=== PATIENT | male | born 1950 | race Caucasian/White ===

== ENCOUNTER → 2017-08-09 09:01 | Outpatient (POV) | payer MEDICARE, SELFPAY | PROVIDERS: PCP Internal Medicine Adolescent Medicine; Visit Provider Podiatrist | DX: Z00.00 Encounter for general adult medical examination without abnormal findings (principal) ==

== ENCOUNTER 2017-08-29 18:24 | Emergency (ER) | payer MEDICARE, SELFPAY ==
[2017-08-29 18:37] VITALS: BP 149/83; PULSE 74; RESP 16; TEMP 36.9; O2SAT 96; BMI 27.1
--- NOTE | 2017-08-29 18:53 | HMH.EDUPEXT ---
ED Disposition Clinical Impression: Diabetes Avulsion of skin of finger without complication Qualifiers: Encounter type: initial encounter Qualified Code(s): S61.209A - Unspecified open wound of unspecified finger without damage to nail, initial encounter CAD (coronary artery disease) Qualifiers: Coronary Disease-Associated Artery/Lesion type: unspecified vessel or lesion type Disposition: Home, Self-Care Condition on Discharge: Good Instructions: DI for Laceration Repair Additional Instructions: 1- rest. 2- ice 3- elevate. 4- kep it dry and clean. 5- take abx. 6- follow up with Dr Hollis on Saturday for a dressing change. Prescriptions: Sulfamethoxazole/Trimethoprim [Bactrim DS tablet] 1 each PO BID #14 tab Referrals: Abel Basilio MD [Primary Care Provider] - - Critical Care Critical Care Time: No Attestation: On 08/29/17, the high probability of a clinically significant, sudden or life threatening deterioration of the following system(s) required my full and direct attention, intervention and personal management. The time I documented below is in addition to time spent performing reported procedures but includes the following listed in this critical care notation. Medical Decision Making - Medical Records Medical records reviewed: Yes: I reviewed the patient's medical records. Vital Signs: 08/29/17 18:37 Temperature 98.4 F Temperature Source Oral Pulse Rate [Right] 74 Respiratory Rate 16 Blood Pressure [Right Arm] 149/83 Blood Pressure Mean [Right Arm] 105 Blood Pressure Source [Right Arm] Automatic Cuff Blood Pressure Position [Right Arm] Supine 02 Sat by Pulse Oximetry 96 Oxygen Delivery Method Room Air Orders (Tests/Meds): ED MEDICATIONS Generic Name Dose Route Start Last Admin Trade Name Freq PRN Reason Stop Dose Admin Tetanus/Reduced Diphtheria/Acell Pertussis 0.5 ml 08/29/17 18:52 Adacel Tdap 0.5ml Syringe IM 08/29/17 18:53 .ONCE ONE - [place] Inquiry Pt receiving controlled substance: No [place] was queried for this patient: No Medical Decision Making Narrative: The patient had good hemostasis there is no active bleeding. I discussed with the patient treatment plan. Rest elevation antibiotics tetanus vaccine. Hold aspirin. Upper Extremity HPI - General Chief Complaint: Wound/Laceration Stated Complaint: ao [id number] lac left thumb Mode of Arrival: Ambulatory Limitations: No Limitations Description of Symptoms (Recalled from ER Triage Doc. by RN): laceration to left tip of the thumb from a table saw blade. - History of Present Illness HPI narrative: 67 years old who suffered a left thumb injury while using a table chainsaw, there is loss of superficial skin there is no loss of movement power or sensation. Bleeding stopped spontaneously. complaint: injury to: left, finger Onset (ago): minute(s) Other Extremity Injury: Left: fingers (Thumb) Handedness: left Place: home Severity: mild Relieving factors: none Exacerbating factors: none Context: other (Using a chainsaw. ) Associated symptoms: denies other symptoms - Related Data Home Medications Medication Instructions Recorded Confirmed aspirin 81 mg chewable tablet 81 mg PO ONCE 07/23/17 bisoprolol fumarate 5 mg tablet 5 mg PO QDAY 07/23/17 chlorthalidone 50 mg tablet 25 mg PO QDAY 07/23/17 glipizide 5 mg tablet 5 mg PO QDAY 07/23/17 hydralazine 50 mg tablet 50 mg PO BID 07/23/17 losartan 100 mg tablet 100 mg PO QDAY 07/23/17 metformin 1,000 mg tablet 500 mg PO BID 07/23/17 multivit with min-folic tab PO 07/23/17 acid-lutein 400 mcg-250 mcg chewable tablet omeprazole 20 mg capsule,delayed 20 mg PO ONCE 07/23/17 release saxagliptin 5 mg tablet 5 mg PO QDAY 07/23/17 tamsulosin 0.4 mg capsule 0.4 mg PO QDAY 07/23/17 vitamin E (dl, acetate) 400 unit 400 unit PO QDAY 07/23/17 capsule Previous Rx's Medication Instructions Recorded S
--- NOTE | 2017-08-29 18:57 | ED_ITS ---
ED Disposition Clinical Impression: Diabetes Avulsion of skin of finger without complication Qualifiers: Encounter type: initial encounter Qualified Code(s): S61.209A - Unspecified open wound of unspecified finger without damage to nail, initial encounter CAD (coronary artery disease) Qualifiers: Coronary Disease-Associated Artery/Lesion type: unspecified vessel or lesion type Disposition: Home, Self-Care Condition on Discharge: Good Instructions: DI for Laceration Repair Additional Instructions: 1- rest. 2- ice 3- elevate. 4- kep it dry and clean. 5- take abx. 6- follow up with Dr Hollis on Saturday for a dressing change. Prescriptions: Sulfamethoxazole/Trimethoprim [Bactrim DS tablet] 1 each PO BID #14 tab Referrals: Abel Basilio MD [Primary Care Provider] - - Critical Care Critical Care Time: No Attestation: On 08/29/17, the high probability of a clinically significant, sudden or life threatening deterioration of the following system(s) required my full and direct attention, intervention and personal management. The time I documented below is in addition to time spent performing reported procedures but includes the following listed in this critical care notation. Medical Decision Making - Medical Records Medical records reviewed: Yes: I reviewed the patient's medical records. Vital Signs: 08/29/17 18:37 Temperature 98.4 F Temperature Source Oral Pulse Rate [Right] 74 Respiratory Rate 16 Blood Pressure [Right Arm] 149/83 Blood Pressure Mean [Right Arm] 105 Blood Pressure Source [Right Arm] Automatic Cuff Blood Pressure Position [Right Arm] Supine 02 Sat by Pulse Oximetry 96 Oxygen Delivery Method Room Air Orders (Tests/Meds): ED MEDICATIONS Generic Name Dose Route Start Last Admin Trade Name Freq PRN Reason Stop Dose Admin Tetanus/Reduced Diphtheria/Acell Pertussis 0.5 ml 08/29/17 18:52 Adacel Tdap 0.5ml Syringe IM 08/29/17 18:53 .ONCE ONE - [place] Inquiry Pt receiving controlled substance: No [place] was queried for this patient: No Medical Decision Making Narrative: The patient had good hemostasis there is no active bleeding. I discussed with the patient treatment plan. Rest elevation antibiotics tetanus vaccine. Hold aspirin. Upper Extremity HPI - General Chief Complaint: Wound/Laceration Stated Complaint: ao [id number] lac left thumb Mode of Arrival: Ambulatory Limitations: No Limitations Description of Symptoms (Recalled from ER Triage Doc. by RN): laceration to left tip of the thumb from a table saw blade. - History of Present Illness HPI narrative: 67 years old who suffered a left thumb injury while using a table chainsaw, there is loss of superficial skin there is no loss of movement power or sensation. Bleeding stopped spontaneously. complaint: injury to: left, finger Onset (ago): minute(s) Other Extremity Injury: Left: fingers (Thumb) Handedness: left Place: home Severity: mild Relieving factors: none Exacerbating factors: none Context: other (Using a chainsaw. ) Associated symptoms: denies other symptoms - Related Data Home Medications Medication Instructions Recorded Confirmed aspirin 81 mg chewable tablet 81 mg PO ONCE 07/23/17 bisoprolol fumarate 5 mg tablet 5 mg PO QDAY
[2017-08-29 19:03] VITALS: BP 128/75; PULSE 82; RESP 18; TEMP 36.8
== END 2017-08-29 19:02 | disposition home or self-care (01) ==
PROVIDERS: Emergency Provider Emergency Medicine; PCP Internal Medicine Adolescent Medicine
DX: S61.209A Unspecified open wound of unspecified finger without damage to nail, initial encounter (principal); I25.10 Atherosclerotic heart disease of native coronary artery without angina pectoris; E11.9 Type 2 diabetes mellitus without complications; W31.2XXA Contact with powered woodworking and forming machines, initial encounter; Z79.82 Long term (current) use of aspirin; Z79.899 Other long term (current) drug therapy; Z88.0 Allergy status to penicillin
CPT/HCPCS: 90471; 90715; 99281

== ENCOUNTER → 2017-09-20 13:48 | Outpatient (POV) | payer MEDICARE, SELFPAY | PROVIDERS: Visit Provider Podiatrist | DX: Z00.00 Encounter for general adult medical examination without abnormal findings (principal) ==

== ENCOUNTER → 2018-09-11 08:45 | Outpatient (CLI) | payer MEDICARE, SELFPAY ==
[2018-09-11 09:50] LABS: Alanine Aminotransferase 16 U/L (12-78); Albumin Level 3.6 gm/dL (3.4-5.0); Albumin/Globulin Ratio 1.1 (1.1-1.8); Alkaline Phosphatase 85 U/L (46-116); Anion Gap 14.7 mEq/L (5-15); Aspartate Amino Transferase 12 U/L (15-37); Bilirubin,Total 0.5 mg/dL (0.2-1.0); Blood Urea Nitrogen 23 mg/dL (7-18); Calcium 10.1 mg/dL (8.5-10.1); Carbon Dioxide 29 mmol/L (21.0-32.0); Chloride 101 mmol/L (98-107); Chol/HDL Ratio 4.1 (1-3.5); Cholesterol 153 mg/dL (140-200); Creatinine,Serum 1.48 mg/dL (0.70-1.30); Estimated Glomerular Filt Rate 47 ml/min (>60); GFR (African American) 57 ML/MIN (>60); Globulin 3.2 gm/dl (1.3-3.2); Glucose 154 mg/dL (74-106); HDL Cholesterol 37 mg/dL (27-67); LDL Cholesterol 84 mg/dL (0-130); Potassium 3.7 mmoL/L (3.5-5.1); Sodium 141 mmol/L (136-145); Total Protein,Serum 6.8 gm/dL (6.4-8.2); Triglycerides 159 mg/dL (30-200); VLDL Cholesterol 32 mg/dL (0-40)
[2018-09-11 10:01] LABS: Hemoglobin A1C 7.1 % (0.0-7.0)
[2018-09-12 12:38] LABS: Testosterone,Total 624 ng/dL (264-916)
== END ==
PROVIDERS: Visit Provider Internal Medicine Adolescent Medicine
DX: D12.6 Benign neoplasm of colon, unspecified (principal); E11.9 Type 2 diabetes mellitus without complications; I10 Essential (primary) hypertension; R53.83 Other fatigue
CPT/HCPCS: 36415; 80053; 80061; 83036; 84403

== ENCOUNTER 2019-04-08 11:00 | Outpatient (RCR) | payer OTHER, MEDICARE, SELFPAY | END 2019-04-08 11:05 | disposition home or self-care (01) | LOC: PT 11:00 | DX: M54.5 Low back pain (principal) | CPT/HCPCS: 97010; 97014; 97110; 97163; 97164; G0283 ==

== ENCOUNTER 2019-08-11 13:12 | Observation (INO) ==
[2019-08-11 13:39] LABS: Basophils % 0.3 % (0.1-2.0); Eosinophils # 0.2 K/mm3 (0.0-0.4); Eosinophils % 1.5 % (0.1-12.0); Hematocrit 32.8 % (42.0-52.0); Hemoglobin 10.5 g/dL (14.1-18.0); Lymphocytes # 0.8 K/mm3 (0.7-4.5); Lymphocytes % 7.1 % (10-50); Mean Corpuscular Volume 89.8 fl (80-94); Mean Platelet Volume 8.3 fl (7.4-10.4); Monocytes # 0.5 K/mm3 (0.1-1.0); Monocytes % 4.8 % (1.7-9.3); Neutrophils # 9.5 K/mm3 (1.8-7.8); Neutrophils % 86.3 % (37.0-80.0); Platelet Count 282 K/mm3 (142-424); Red Blood Count 3.65 M/mm3 (4.60-6.20)
[2019-08-11 13:49] LABS: Anion Gap 16.7 mEq/L (5-15); Calcium 9.5 mg/dL (8.5-10.1)
--- NOTE | 2019-08-11 13:49 | Emergency Department Note ---
ED Disposition Clinical Impression: Non-ST elevated myocardial infarction Disposition: Admitted as Observation Condition on Discharge: Serious - Critical Care Critical Care Time: Yes Attestation: On 08/11/19, the high probability of a clinically significant, sudden or life threatening deterioration of the following system(s) required my full and direct attention, intervention and personal management. The time I documented below is in addition to time spent performing reported procedures but includes the following listed in this critical care notation. Vital system(s) involved:: Circulatory Failure My critical care processes included: Assessment & monitoring of V/S, Initial and Re-exams, Data Review/Interpretation, Coordinating Care, Medication Orders and management, Documentation Medical Decision Making - [place] Inquiry Pt receiving controlled substance: No Vital Signs: 08/11/19 13:12 08/11/19 13:42 08/11/19 14:00 Temperature 97.5 F L Temperature Source Oral Pulse Rate [Left Radial] 70 70 70 Respiratory Rate 18 20 Blood Pressure [Right Arm] 149/82 H 160/87 H 155/84 H Blood Pressure Mean [Right Arm] 104 111 107 Blood Pressure Source [Right Arm] Automatic Cuff Blood Pressure Position [Right Arm] Sitting Supine Sitting 02 Sat by Pulse Oximetry 98 97 Oxygen Delivery Method Room Air Room Air 08/11/19 14:05 08/11/19 14:10 08/11/19 16:00 Temperature Temperature Source Pulse Rate [Left Radial] 70 68 63 Respiratory Rate 20 Blood Pressure [Right Arm] 142/73 H 133/76 154/84 H Blood Pressure Mean [Right Arm] 96 95 107 Blood Pressure Source [Right Arm] Automatic Cuff Manual Cuff/ Doppler Blood Pressure Position [Right Arm] Sitting Sitting Supine 02 Sat by Pulse Oximetry 98 Oxygen Delivery Method Room Air 08/11/19 17:30 08/11/19 18:10 Temperature Temperature Source Pulse Rate [Left Radial] 70 65 Respiratory Rate 20 20 Blood Pressure [Right Arm] 166/92 H 152/78 H Blood Pressure Mean [Right Arm] 116 102 Blood Pressure Source [Right Arm] Automatic Cuff Automatic Cuff Blood Pressure Position [Right Arm] Supine Supine 02 Sat by Pulse Oximetry 98 98 Oxygen Delivery Method Room Air Room Air - Lab Data Lab Results 08/11/19 13:20: Troponin I 0.07 H 08/11/19 13:20: Sodium 141, Potassium 3.7, Chloride 103, Carbon Dioxide 25, Anion Gap 16.7 H, BUN 24 H, Creatinine 1.78 H, Estimated Creat Clear 46, Estimated GFR 38 L, Est GFR ( Amer) 46 L, Glucose 209 H, Calcium 9.5 08/11/19 13:20: WBC 11.0 H, RBC 3.65 L, Hgb 10.5 L, Hct 32.8 L, MCV 89.8, MCH 28.7, MCHC 32.0, RDW 14.0, Plt Count 282, MPV 8.3, Neut % (Auto) 86.3 H, Lymph % (Auto) 7.1 L, [place] % (Auto) 4.8, Eos % (Auto) 1.5, Baso % (Auto) 0.3, Neut # (Auto) 9.5 H, Lymph # (Auto) 0.8, [place] # (Auto) 0.5, Eos # (Auto) 0.2, Baso # (Auto) 0.0, Total Counted 100, Neutrophils % (Manual) 84 H, Lymphocytes % (Manual) 9 L, Monocytes % (Manual) 5, Eosinophils % (Manual) 2, Platelet Estimate Normal, RBC Morphology Normal 08/11/19 13:20: B-Natriuretic Peptide 659 H 08/11/19 16:32: Troponin I 0.93 H Result diagrams: 08/11/19 13:20 08/11/19 13:20 Orders (Tests/Meds): ED MEDICATIONS Generic Name Dose Route Start Last Admin Trade Name Freq PRN Reason Stop Dose Admin Enoxaparin Sodium 80 mg 08/11/19 17:45 08/11/19 17:59 Lovenox 80mg/0.8ml Syringe SQ 09/10/19 17:44 80 mg Q12H ROXIE Administration Nitroglycerin 0.4 mg 08/11/19 13:58 08/11/19 14:12 Nitrostat 0.4mg Sl Tablet SL 09/10/19 13:57 0.4 mg Q5MINP PRN Administration Chest Pain Discontinued Medications Generic Name Dose Route Start Last Admin Trade Name Freq PRN Reason Stop Dose Admin Aspirin 324 mg 08/11/19 13:52 08/11/19 13:53 Aspirin 81mg Chewable Tablet PO 08/11/19 13:53 324 mg ONCE ONE Administration Clopidogrel Bisulfate 300 mg 08/11/19 13:55 08/11/19 14:02 Plavix 300mg Tablet PO 08/11/19 13:56 300 mg ONCE ONE Administration Furosemide 20 mg 08/11/19 16:43 08/11/19 16:56 Lasix 40mg/4ml Vial IV 08/11/19 16:44 20 mg ONCE ONE Administration Nitroglycerin 1 gm 08/11/19 14:19 08/11/19 14:20 Nitroglycerin 1 Inch Oint Udp TD 08/11/19 14:20 1 gm ONCE ONE Administration ORDERS Category Date Time Status Troponin I Q3H Lab 08/11/19 19:30 Ordered - Radiology Data #1 Image(s): Chest Image Reviewed: Yes I have reviewed radiologist's interpretation FINDINGS: There has been a prior CABG. The heart size is normal. There is however pulmonary venous congestion and interstitial edema suggesting acute cardiac decompensation/CHF. There are associated changes of COPD/emphysema. There are several small metallic opacities overlying the lower cervical spine unchanged. No acute bony abnormalities. IMPRESSION: Pulmonary venous congestion with interstitial edema consistent with acute CHF or plasma volume overload with associated COPD Dictated by: Get Valdes MD 08/11/2019 14:03 Electronically signed by Get Valdes MD in [place] 08/11/2019 14:03 (Patient does not have any shortness of breath, pulse ox 100% on room air at this time) - ECG Data Tracing #1 EKG interpreted by Karson Kumar MD: Rhythm: sinus Rate: 68 [place]: normal Ectopy: none Conduction: First-degree AV block ST Segment Changes: Deep ST depression, downsloping in anterior and lateral leads. ST elevation in aVR T Wave Changes: none Q Waves: none Concerning for ischemic changes versus possible posterior MA. Tracing #2 EKG interpreted by Karson Kumar MD: Rhythm: P waves not well seen, but probably sinus rhythm with first-degree AV block Rate: 66 [place]: Left Ectopy: none Conduction: normal ST Segment Changes: ST segment depression improved from prior EKG T Wave Changes: none Q Waves: none - Physician Consults Physician Consulted: Felix Time: 13:48 Reason -: Cardiology Eval/Care Comment/Response: They do not have an EKG on him in the past 10 years. States "I can help you with his EKG". I described his current electrocardiogram and he feels patient should be admitted. The patient has stated that he wants to be transferred to [facility] where Dr. Washington admits. Dr. Washington says he will arrange the admission and have the hospital call us. Requests aspirin and Plavix. [place] [facility] office also confirms that they do not have any old EKGs available. I offered to transmit his EKG, he declined. Additional Consult: Felix Time: 17:45 Reason -: Cardiology Eval/Care Comment/Response: [facility] says he is still third on the waiting list and cannot give us a time estimate on when a bed will be available. I discussed with Dr. Washington, he is aware of that. I discussed his elevated troponin, he request patient be started on Lovenox. I will discussed with Dr. Basilio as to whether he would want to admit him here awaiting a bed at [facility]. Additional Consult: Dr. Basilio Time: 17:59 Reason -: Admission Comment/Response: Agrees to admit the patient to the hospital. We discussed the patient's clinical information, including history, exam, laboratory and radiology results and ED course. Per hospital procedure, I will write temporary bridge inpatient orders on the patient. Specific orders requested by the admitting physician: Continue aspirin, Plavix, Lovenox, Nitropaste and home medications. Telemetry. - Reevaluation(s) Time: 14:02 Reevaluation #1: Patient's pain is 6/10. I discussed with him my conversation with Dr. Washington. Dr. Washington is okay with him being admitted here or being transferred to [facility] where he practices. The patient is adamant that he be transferred to [facility], does not want to be admitted here, does not want to be seen by cardiology here. I have discussed with him the fact that we have not been able to obtain old EKGs to compare whether he has any new changes. Time: 14:55 Reevaluation #3: Pain is 2/10. Patient feels better. [facility] reports that he is third on the list for a bed there. It may be morning before he is able to be accepted for transfer there. I informed them that I am unable to confirm that his EKG ch anges are chronic in nature as we have no recent electrocardiograms within the past 8 years. I discussed all of this with patient and family. I again for the third time offered to have cardiology at this facility see him, and still family and patient are declining that. They are insistent that evaluation and any intervention be performed by Dr. Washington. Time reevaluation 3: 17:29 Reevaluation #2: Second troponin is 0.93. Patient is pain-free at this time and appears comfortable. Call placed to Dr. Washington. - FLACO Score for Non-Stemi Age of Patient: 60-69 years old Heart Rate: 70-89 bpm Systolic Blood Pressure: 140-159 mmHg Serum Creatinine: 1.60-1.99 mg/dl CHF [place] Class: III-Pulmonary Edema Other Risk Factors: ST Segment Deviation Non-Stemi Risk Score: 171 Medical Decision Narrative: I immediately saw the patient after EKG was performed. I discussed his EKG with him. He says "I have a notoriously bad EKG". He says that every time he gets an EKG and a doctor look at it "they panic". He implies that what ever I am seeing on his EKG is chronic in nature. I discussed cardiac evaluation with him. He says that he wants Dr. Washington, his pulmonologist/intensivist in [place] to treat him. I advised him that we have a pulmonologist/intensivist here, that based on his EKG changes they would likely take him to the [facility] here. He says he does not want to have a heart cath here, if he has to have a heart cath he wants it done by Dr. Washington at [facility]. Requested EKGs from [place] [facility], [facility], Dr. Basilio. The most recent EKG from Dr. Basilio was 2011, copy was sent to us. Current changes are new compared to that EKG. [facility] did not have any prior EKGs to transmit. As noted, [place] [facility] did not have any EKGs in the past 10 years. General Adult HPI - General Chief complaint: Chest Pain Stated complaint: CHEST PAIN Time Seen by Provider: 08/11/19 13:14 Mode of Arrival: Ambulatory Limitations: No Limitations Description of Symptoms (Recalled from ER Triage Doc. by RN): TO ED PER PVT CAR WITH C/O CHEST PAIN RADIATING TO RT ARM AND "HEARTBURN" "FOR A WHILE" WORSE OVER THE 2 DAYS. STATES PT VOMITED X 2 [facility] NURSE. PT DENIES ANY SOB, DIAPHORESIS. PT WITH HX OF CABG - History of Present Illness HPI narrative: Patient complains of chest pain. He is says he has had it for over a year. [facility], but Dr. Carrillo does not. He has a history of coronary artery disease with myocardial infarction and coronary artery bypass surgery in the 90s. He sees Dr. Washington, pulmonologist/intensivist at [place] [facility]. He says that he last had a heart cath several years ago. He says that his current pain has been ongoing constantly for 2 days but is worse today. He vomited prior to arrival. Denies shortness of breath or diaphoresis. Radiation to right arm. He does complain of some heartburn. - Related Data Home Medications Medication Instructions Recorded Confirmed aspirin 81 mg chewable tablet 81 mg PO ONCE 07/23/17 08/11/19 chlorthalidone 50 mg tablet 25 mg PO QDAY 07/23/17 08/11/19 losartan 100 mg tablet 100 mg PO QDAY 07/23/17 08/11/19 metformin 1,000 mg tablet 500 mg PO BID 07/23/17 08/11/19 multivit with min-folic 1 tab PO DAILY 07/23/17 08/11/19 acid-lutein 400 mcg-250 mcg chewable tablet omeprazole 20 mg capsule,delayed 20 mg PO ONCE 07/23/17 08/11/19 release saxagliptin 5 mg tablet 5 mg PO QDAY 07/23/17 08/11/19 tamsulosin 0.4 mg capsule 0.4 mg PO QDAY 07/23/17 08/11/19 vitamin E (dl, acetate) 400 unit 400 unit PO QDAY 07/23/17 08/11/19 capsule bisoprolol fumarate 5 mg tablet 5 mg PO BID tab 12/12/17 08/11/19 hydralazine 50 mg tablet 50 mg PO TID tab 12/12/17 08/11/19 Allergies Allergy/AdvReac Type Severity Reaction Status Date / Time Penicillins Allergy Unknown Verified 05/28/19 10:30 [facility] History - Hepatitis A Screen Drug use history?: No High risk sexual behaviors?: No History of sexually transmitted infection?: No Currently employed?: No Childcare worker?: No Do you have indoor plumbing?: Yes Do you have electricity?: Yes Attestation statement:: This patient has been screened for Hepatitis A risk factors. I have reviewed the patient's past medical history: Yes Medical History: Reports:: Atrial Fibrillation, Coronary Artery Disease, Diabetes Mellitus Type 2, Gastroesophageal Reflux Disease(GERD), Hypertension, Migraine, MRSA, Myocardial Infarction, Peripheral Artery Disease Denies:: Aneurysm, Arrhythmia, Asthma, Cancer, Congestive Heart Failure, Chronic Obstructive Pulmonary Disease (COPD), Cerebrovascular Accident, Deep Vein Thrombosis, Dementia, Diabetes Mellitus Type 1, Gastrointestinal Bleed, Hyperlipidemia, Internal Pacemaker, Lung Disease, Kidney Stones, Osteoporosis, Pulmonary Embolism, Renal Disease, Seizures, Supraventricular Tachycardia, Transient Ischemic Attacks (TIA), Valvular Heart Disease Other Medical History: Reports: Arthritis. Denies: Anemia, Blood Transfusion Reaction, Glaucoma, Hypothyroidism, Osteoporosis, Sinus Problems, Thyroid Disease Laterality Cases: Bilateral: Tonsillectomy Other Surgeries: Yes: No Previous Surgery, Appendectomy, Cardiac Catheterizat ion, Cardiac Surgery (1997 Bypass surgery ), Cholecystectomy, Colonoscopy, Coronary Stent (heart ), Other (Quadruple bypass surgery, cholecystectomy, vertebrae fusion in neck). No: Pacemaker Amputation: No Fractures: Yes - Social History Smoking Status: Current every day smoker Tobacco Type: smokeless tobacco Alcohol Intake: never Alcohol Intake Frequency:: other Substance Use Type: denies use Occupational Status: retired Housing: house Household Members: spouse Family Hx:: Cancer, Diabetes ROS Obtained: Yes All systems reviewed & no additional complaints - Constitutional Constitutional: Denies fever(s) - Cardiovascular Cardiovascular: Reports chest pain, Denies diaphoresis - Respiratory Respiratory: No dyspnea - Gastrointestinal Gastrointestingal: Reports: nausea, vomiting. Denies: abdominal pain Physical Exam - General General appearance: alert, in no apparent distress - Head Head exam: atraumatic, normocephalic - Eye Eye exam: Present: normal appearance, EOMI - ENT ENT exam: Present: mucous membranes moist - Neck Neck exam: Present: normal inspection, trachea midline - Chest Chest inspection: Present: normal inspection, symmetric chest wall rise - Respiratory Respiratory exam: Present: normal lung sounds bilaterally. Absent: respiratory distress - Cardiovascular Cardiovascular exam: Present: regular rate, normal rhythm, normal heart sounds - Abdominal Exam Abdominal exam: Present: soft, normal bowel sounds. Absent: distention, tenderness - Extremities Exam Extremities exam: Present: normal inspection, other (Normal peripheral pulses). Absent: pedal edema, calf tenderness - Neurological Exam Neurological exam: Present: alert, oriented X3 - Psychiatric Psychiatric exam: Present: normal affect, normal mood - Skin Skin exam: Present: warm, dry. Absent: diaphoresis
[2019-08-11 14:08] LABS: Eosinophils % 2 % (0-3); Lymphocytes % 9 % (10-50); Monocytes % 5 % (2-9); Neutrophils % 84 % (42-76); Total Cells Counted 100
[2019-08-11 14:09] LABS: RBC Morphology Normal
--- NOTE | 2019-08-11 15:32 | Electrocardiograph Report ---
APPROVED REPORT Exam: Resting ECG HR:68 bpm ECG Measurements Heart Rate 68 AXES TX 246 P 58 QRSd 116 QRS -37 QT 422 T143 QTc 448 <Conclusion> Sinus rhythm with marked sinus arrhythmia with 1st degree AV block Left axis deviation Incomplete left bundle branch block Marked ST abnormality, possible inferior subendocardial injury Marked ST abnormality, possible anteroseptal subendocardial injury Abnormal ECG Electronically signed by : Abel Basilio, 08/11/2019 15:31:48
--- NOTE | 2019-08-12 07:13 | Pharmacy Consult Notes ---
[facility] Pharmacy VTE Monitoring - Patient Demographics Admission date: 08/11/19 Report Date: 08/12/19 Time: 07:12 Allergies/Adverse Reactions: Patient Allergies Penicillins Allergy (Unknown, Verified 05/28/19 10:30) Height: 1.96 m Weight: 81.647 kg Patient Problems: Current Active Problems Non-ST elevated myocardial infarction (Acute) - VTE Risk Labs: VTE Related Lab Results Hgb 10.5 g/dL (14.1-18.0) L 08/11/19 13:20 Hct 32.8 % (42.0-52.0) L 08/11/19 13:20 Plt Count 282 K/mm3 (142-424) 08/11/19 13:20 BUN 24 mg/dL (7-18) H 08/11/19 13:20 Creatinine 1.78 mg/dL (0.70-1.30) H 08/11/19 13:20 Estimated Creat Clear 46 mL/min (50-200) 08/11/19 13:20 Was VTE Risk Assessment Performed: Yes VTE Score: 5 VTE Risk Level: Low Risk - Prophylaxis VTE Prophylaxis Ordered?: Yes Types of VTE Prophylaxis: TEDS Knee High Location of Applied Device: Bilateral Lower Extremeties Pharmacologic Type: Enoxaparin
--- NOTE | 2019-08-12 08:21 | H&P/Discharge Summary ---
General - General Admission date:: 08/11/19 Discharge date: 08/12/19 *Admission Date: 08/11/19 *Chief complaint: chest pain *History of present illness: 69-year-old white male with diabetes, known coronary disease, who reports that he has had a 1 year of right-sided lower abdominal and right flank pain, but over the past 24 hours it is accelerated and change in character. Came to the emergency department where he was found to have evidence of a non-STEMI with elevated troponins that increased in value over the next 3 hours. 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 Washington but [facility] had no beds at the time of the ER presentation. Patient was admitted overnight for observation and awaiting bed transfer to [facility]. [facility] History I have reviewed the patient's past medical history: Yes Medical History: Reports:: Atrial Fibrillation, Coronary Artery Disease, Diabetes Mellitus Type 2, Gastroesophageal Reflux Disease(GERD), Hyperlipidemia, Hypertension, Migraine, MRSA, Myocardial Infarction, Peripheral Artery Disease Denies:: Aneurysm, Arrhythmia, Asthma, Cancer, Congestive Heart Failure, Chronic Obstructive Pulmonary Disease (COPD), Cerebrovascular Accident, Deep Vein Thrombosis, Dementia, Diabetes Mellitus Type 1, Gastrointestinal Bleed, Internal Pacemaker, Lung Disease, Kidney Stones, Osteoporosis, Pulmonary Embolism, Renal Disease, Seizures, Supraventricular Tachycardia, Transient Ischemic Attacks (TIA), Valvular Heart Disease *Have you ever received a pneumonia vaccine?: Yes *Have you received a flu vaccine this season?: Yes Other Medical History: Reports: Arthritis. Denies: Anemia, Blood Transfusion Reaction, Glaucoma, Hypothyroidism, Osteoporosis, Sinus Problems, Thyroid Disease Laterality Cases: Bilateral: Tonsillectomy Other Surgeries: Yes: No Previous Surgery, Appendectomy, Cardiac Catheterization, Cardiac Surgery, Cholecystectomy, Colonoscopy, Coronary Stent, Open Heart Surgery, Other (Quadruple bypass surgery, cholecystectomy, vertebrae fusion in neck). No: Pacemaker Amputation: No Fractures: Yes - *Social History Educational Level: Completed College Smoking Status: Never smoker Tobacco Type: smokeless tobacco # Packs/Day (cigarettes): 0 Alcohol Intake: never Alcohol Intake Frequency:: other Substance Use Type: denies use *Occupational Status:: retired Housing: house Household Members: spouse *Travel in the last 8 weeks: None Family Hx:: Cancer, Diabetes Review of Systems - Review of Systems Review of systems:: pertinent systems reviewed and negative unless documented below Exam Vital signs and Labs for Last 24 Hours: Temp Pulse Resp BP Pulse Ox 98 F 53 L 18 134/61 99 08/12/19 08:00 08/12/19 08:00 08/12/19 08:00 08/12/19 08:00 08/12/19 08:00 Laboratory Results - last 24 hr 08/11/19 13:20: Troponin I 0.07 H 08/11/19 13:20: Sodium 141, Potassium 3.7, Chloride 103, Carbon Dioxide 25, Anion Gap 16.7 H, BUN 24 H, Creatinine 1.78 H, Estimated Creat Clear 46, Estimated GFR 38 L, Est GFR ( Amer) 46 L, Glucose 209 H, Calcium 9.5 08/11/19 13:20: WBC 11.0 H, RBC 3.65 L, Hgb 10.5 L, Hct 32.8 L, MCV 89.8, MCH 28.7, MCHC 32.0, RDW 14.0, Plt Count 282, MPV 8.3, Neut % (Auto) 86.3 H, Lymph % (Auto) 7.1 L, [place] % (Auto) 4.8, Eos % (Auto) 1.5, Baso % (Auto) 0.3, Neut # (Auto) 9.5 H, Lymph # (Auto) 0.8, [place] # (Auto) 0.5, Eos # (Auto) 0.2, Baso # (Auto) 0.0, Total Counted 100, Neutrophils % (Manual) 84 H, Lymphocytes % (Manual) 9 L, Monocytes % (Manual) 5, Eosinophils % (Manual) 2, Platelet Estimate Normal, RBC Morphology Normal 08/11/19 13:20: B-Natriuretic Peptide 659 H 08/11/19 16:32: Troponin I 0.93 H 08/11/19 19:35: Troponin I 3.48 H 08/11/19 22:02: POC Glucose 112 H I & O for Last 24 hours: Intake & Output 08/09/19 08/10/19 08/11/19 08/12/19 11:59 11:59 11:59 11:59 Weight 180 lb - Constitutional no acute distress - *Routine HEENT Exam Head: Present: normocephalic Eye: Present: EOMI, PERRL - *Routine Neck Exam Present: supple. Absent: lymphadenopathy - *Routine Respiratory Exam Present: CTA bilaterally - *Routine Cardiovascular Exam Present: RRR - *Routine Abdominal Exam Present: soft, normoactive bowel sounds - *Routine Extremities Exam Absent: cyanosis, clubbing, edema Results Labs on day of discharge: Labs from last 24 hours 08/11/19 08/11/19 08/11/19 22:02 19:35 16:32 WBC RBC Hgb Hct MCV MCH MCHC RDW Plt Count MPV Neut % (Auto) Lymph % (Auto) [place] % (Auto) Eos % (Auto) Baso % (Auto) Neut # (Auto) Lymph # (Auto) [place] # (Auto) Eos # (Auto) Baso # (Auto) Total Counted Neutrophils % (Manual) Lymphocytes % (Manual) Monocytes % (Manual) Eosinophils % (Manual) Platelet Estimate RBC Morphology Sodium Potassium Chloride Carbon Dioxide Anion Gap BUN Creatinine Estimated Creat Clear Estimated GFR Est GFR ( Amer) Glucose POC Glucose 112 H Calcium Troponin I 3.48 H 0.93 H B-Natriuretic Peptide 08/11/19 08/11/19 08/11/19 13:20 13:20 13:20 WBC 11.0 H RBC 3.65 L Hgb 10.5 L Hct 32.8 L MCV 89.8 MCH 28.7 MCHC 32.0 RDW 14.0 Plt Count 282 MPV 8.3 Neut % (Auto) 86.3 H Lymph % (Auto) 7.1 L [place] % (Auto) 4.8 Eos % (Auto) 1.5 Baso % (Auto) 0.3 Neut # (Auto) 9.5 H Lymph # (Auto) 0.8 [place]aston # (Auto) 0.5 Eos # (Auto) 0.2 Baso # (Auto) 0.0 Total Counted 100 Neutrophils % (Manual) 84 H Lymphocytes % (Manual) 9 L Monocytes % (Manual) 5 Eosinophils % (Manual) 2 Platelet Estimate Normal RBC Morphology Normal Sodium 141 Potassium 3.7 Chloride 103 Carbon Dioxide 25 Anion Gap 16.7 H BUN 24 H Creatinine 1.78 H Estimated Creat Clear 46 Estimated GFR 38 L Est GFR ( Amer) 46 L Glucose 209 H POC Glucose Calcium 9.5 Troponin I B-Natriuretic Peptide 659 H 08/11/19 13:20 WBC RBC Hgb Hct MCV MCH MCHC RDW Plt Count MPV Neut % (Auto) Lymph % (Auto) [place] % (Auto) Eos % (Auto) Baso % (Auto) Neut # (Auto) Lymph # (Auto) [place] # (Auto) Eos # (Auto) Baso # (Auto) Total Counted Neutrophils % (Manual) Lymphocytes % (Manual) Monocytes % (Manual) Eosinophils % (Manual) Platelet Estimate RBC Morphology Sodium Potassium Chloride Carbon Dioxide Anion Gap BUN Creatinine Estimated Creat Clear Estimated GFR Est GFR ( Amer) Glucose POC Glucose Calcium Troponin I 0.07 H B-Natriuretic Peptide DS: Diagnosis - Discharge Diagnosis (1) Non-ST elevated myocardial infarction Status: Acute (2) CAD (coronary artery disease) Status: Acute (3) Diabetes Status: Acute Discharge Plan - Patient Discharge Instructions ACTIVITY: Continue current activity DIET: continue same diet Patient Instructions: Type 2 Diabetes, Coronary Artery Disease, Acute Coronary Syndrome - Follow up Plan Disposition: Xfer Short-Term Hosp Home Medications: Home Medications Medication Instructions Recorded Confirmed Type chlorthalidone 50 mg tablet 50 mg PO QDAY 07/23/17 08/12/19 History losartan 100 mg tablet 100 mg PO QDAY 07/23/17 08/12/19 History metformin 1,000 mg tablet 1,000 mg PO BID 07/23/17 08/12/19 History multivit with min-folic 1 tab PO DAILY 07/23/17 08/11/19 History acid-lutein 400 mcg-250 mcg chewable tablet omeprazole 20 mg capsule,delayed 20 mg PO BID 07/23/17 08/12/19 History release tamsulosin 0.4 mg capsule 0.4 mg PO QDAY 07/23/17 08/12/19 History vitamin E (dl, acetate) 400 unit 400 unit PO QDAY 07/23/17 08/11/19 History capsule bisoprolol fumarate 5 mg tablet 5 mg PO BID tab 12/12/17 08/12/19 History hydralazine 50 mg tablet 50 mg PO TID tab 12/12/17 08/12/19 History Alogliptin Benzoate [Alogliptin] 25 mg PO DAILY 08/12/19 08/12/19 History Aspirin [Aspir 81] 81 mg PO DAILY 08/12/19 08/12/19 History Atorvastatin Calcium [Atorvastatin 20 mg PO HS 08/12/19 08/12/19 History 40mg Tab] Prescriptions/Medication Reconciliation: Continued omeprazole 20 mg capsule,delayed release 20 mg PO BID losartan 100 mg tablet 100 mg PO QDAY chlorthalidone 50 mg tablet 50 mg PO QDAY multivit with min-folic acid-lutein 400 mcg-250 mcg chewable tablet 1 tab PO DAILY vitamin E (dl, acetate) 400 unit capsule 400 unit PO QDAY tamsulosin 0.4 mg capsule 0.4 mg PO QDAY hydralazine 50 mg tablet 50 mg PO TID tab bisoprolol fumarate 5 mg tablet 5 mg PO BID tab metformin 1,000 mg tablet 1,000 mg PO BID Atorvastatin Calcium [Atorvastatin 40mg Tab] 20 mg PO HS Aspirin [Aspir 81] 81 mg PO DAILY Alogliptin Benzoate [Alogliptin] 25 mg PO DAILY - Problem Reconciliation Problems Reviewed?: Yes
--- NOTE | 2019-08-15 21:00 | Electrocardiograph Report ---
APPROVED REPORT Exam: Resting ECG HR:72 bpm ECG Measurements Heart Rate 72 AXES RI 268 P 41 QRSd 106 QRS -36 QT 412 T182 QTc 451 <Conclusion> Sinus rhythm with 1st degree AV block Left axis deviation ST & T wave abnormality, consider lateral ischemia Abnormal ECG Electronically signed by : Abel Basilio, 08/15/2019 21:00:25
--- NOTE | 2019-08-15 21:00 | Electrocardiograph Report ---
APPROVED REPORT Exam: Resting ECG HR:53 bpm ECG Measurements Heart Rate 53 AXES QRSd 110 QRS -43 QT 454 T195 QTc 426 <Conclusion> Sinus rhythm with 2nd degree AV block (Mobitz I) with ventricular escape complexes Left axis deviation Incomplete left bundle branch block Left ventricular hypertrophy with repolarization abnormality Abnormal ECG Electronically signed by : Abel Basilio, 08/15/2019 21:00:22
--- NOTE | 2019-08-15 21:01 | Electrocardiograph Report ---
APPROVED REPORT Exam: Resting ECG HR:66 bpm ECG Measurements Heart Rate 66 AXES QRSd 106 QRS -44 QT 444 T186 QTc 465 <Conclusion> Accelerated Junctional rhythm Left axis deviation Marked ST abnormality, possible inferior subendocardial injury Abnormal ECG Electronically signed by : Abel Basilio, 08/15/2019 21:01:04
== END 2019-08-12 09:03 | disposition short-term general hospital (02) ==
LOC: 2ND 13:12 → ER 13:12 → 2ND 18:39
PROVIDERS: ADMIT Internal Medicine Adolescent Medicine; ATTEND Internal Medicine Adolescent Medicine
CPT/HCPCS: 36415; 71020; 71046; 80048; 82962; 83880; 84484; 85007; 85025; 93005; 96372; 96374; 99284; G0378

== ENCOUNTER 2019-08-20 12:53 | Outpatient (RCR) | payer MEDICARE, SELFPAY | END 2019-11-12 13:10 | disposition home or self-care (01) | LOC: PT 12:53 | PROVIDERS: Visit Provider Internal Medicine Adolescent Medicine | DX: Z95.5 Presence of coronary angioplasty implant and graft (principal); I25.10 Atherosclerotic heart disease of native coronary artery without angina pectoris | CPT/HCPCS: 93798 ==

== ENCOUNTER → 2019-10-13 17:02 | Outpatient (CLI) | payer MEDICARE, SELFPAY ==
[2019-10-13 18:57] LABS: Chloride 100 mmol/L (98-107); Sodium 138 mmol/L (136-145)
[2019-10-13 18:58] LABS: Potassium 4.1 mmoL/L (3.5-5.1)
[2019-10-13 19:00] LABS: Blood Urea Nitrogen 18 mg/dl (9-20); Estimated Glomerular Filt Rate 67 ml/min (>60); GFR (African American) 81 ML/MIN (>60)
[2019-10-13 19:01] LABS: Anion Gap 14.1 mEq/L (5-15); Calcium 9.6 mg/dl (8.4-10.2); Carbon Dioxide 28 mmol/L (22.0-30.0); Glucose 116 mg/dl (74-100)
== END ==
PROVIDERS: Visit Provider Internal Medicine Cardiovascular Disease
DX: R09.89 Other specified symptoms and signs involving the circulatory and respiratory systems (principal); R60.0 Localized edema
CPT/HCPCS: 36415; 80048

== ENCOUNTER → 2020-03-23 10:53 | Outpatient (CLI) | payer MEDICARE, SELFPAY ==
[2020-03-23 11:49] LABS: Alanine Aminotransferase 10 U/L (12-78); Albumin Level 3.9 g/dl (3.5-5.0); Albumin/Globulin Ratio 1.4 (1.1-1.8); Alkaline Phosphatase 93 U/L (38-126); Anion Gap 13.9 mEq/L (5-15); Aspartate Amino Transferase 19 U/L (17-59); Bilirubin,Total 0.6 mg/dl (0.2-1.3); Blood Urea Nitrogen 23 mg/dl (9-20); Calcium 9.6 mg/dl (8.4-10.2); Carbon Dioxide 30 mmol/L (22.0-30.0); Chloride 100 mmol/L (98-107); Estimated Glomerular Filt Rate 50 ml/min (>60); GFR (African American) 61 ML/MIN (>60); Globulin 2.7 g/dL (1.3-3.2); Glucose 127 mg/dl (74-100); Potassium 3.9 mmoL/L (3.5-5.1); Sodium 140 mmol/L (136-145); Total Protein,Serum 6.6 g/dl (6.3-8.2)
[2020-03-23 13:03] LABS: Hemoglobin A1C 6.6 % (4.0-6.0)
== END ==
PROVIDERS: Visit Provider Internal Medicine Adolescent Medicine
DX: E11.9 Type 2 diabetes mellitus without complications (principal); I10 Essential (primary) hypertension; Z79.84 Long term (current) use of oral hypoglycemic drugs
CPT/HCPCS: 36415; 80053; 83036

== ENCOUNTER → 2020-08-24 09:57 | Outpatient (CLI) | payer MEDICARE, SELFPAY ==
[2020-08-24 10:17] LABS: Microscopic, Urine URINE MICROSCOPIC (MICROSCOPIC)
[2020-08-24 10:52] LABS: Basophils % 0.3 % (0.1-2.0); Eosinophils # 0.2 K/mm3 (0.0-0.4); Eosinophils % 3.6 % (0.1-12.0); Hematocrit 26.3 % (42.0-52.0); Hemoglobin 8.1 g/dL (14.1-18.0); Lymphocytes % 15.5 % (10-50); Mean Corpuscular HGB Conc 30.8 g/dL (31.8-35.4); Mean Corpuscular Hemoglobin 25.9 pg (27.0-31.2); Mean Platelet Volume 8.3 fl (7.4-10.4); Monocytes # 0.4 K/mm3 (0.1-1.0); Monocytes % 6.8 % (1.7-9.3); Neutrophils # 4.6 K/mm3 (1.8-7.8); Neutrophils % 73.8 % (37.0-80.0); Platelet Count 211 K/mm3 (142-424); Red Blood Count 3.13 M/mm3 (4.60-6.20); Red Cell Distribution Width 14.6 % (11.5-17.5); White Blood Count 6.2 K/mm3 (4.8-10.8)
[2020-08-24 10:56] LABS: Appearance,Urine CLEAR (Clear); Bilirubin,Urine Negative (Negative); Blood, Urine Negative (Negative); Color,Urine YELLOW (Yellow); Glucose,Urine (UA) Negative (Negative); Ketones,Urine Negative (Negative); Leukocyte Esterase,Urine Negative (Negative); Nitrate,Urine Negative (Negative); Protein,Urine 2+ (Negative); Urobilinogen,Urine 0.2 EU/dl (0.2)
[2020-08-24 11:04] LABS: Squamous Epithelial Cell,Urine Occasional #/hpf (0-5)
[2020-08-24 11:09] LABS: Creatinine,Urine Random 74 mg/dL (Not Estab.)
[2020-08-24 11:20] LABS: Hemoglobin A1C 7.2 % (4.0-6.0)
[2020-08-24 11:32] LABS: Albumin Level 3.4 g/dl (3.5-5.0)
[2020-08-24 11:34] LABS: Blood Urea Nitrogen 23 mg/dl (9-20); Cholesterol 98 mg/dl (140-200); Estimated Glomerular Filt Rate 46 ml/min (>60); GFR (African American) 56 ML/MIN (>60); Iron 25 ug/dL (49-181); Triglycerides 77 mg/dl (30-150); VLDL Cholesterol 15 mg/dL (0-40)
[2020-08-24 11:35] LABS: Calcium 9.4 mg/dl (8.4-10.2); Chol/HDL Ratio 2.9 (1-3.5); Glucose 160 mg/dl (74-100); HDL Cholesterol 34 mg/dl (40-60); Phosphorous 4.7 mg/dl (2.5-4.5)
[2020-08-24 11:45] LABS: Total Iron Binding Capacity 300 ug/dL (261-462)
[2020-08-24 11:47] LABS: Direct LDL Cholesterol 43.71 mg/dL (100-129)
[2020-08-24 12:14] LABS: Chloride 103 mmol/L (98-107); Potassium 3.8 mmoL/L (3.5-5.1); Sodium 139 mmol/L (136-145)
[2020-08-24 12:18] LABS: Anion Gap 9.8 mEq/L (5-15); Carbon Dioxide 30 mmol/L (22.0-30.0)
[2020-08-25 16:41] LABS: Immunoglobulin A, Qn 306 mg/dL (61-437); Immunoglobulin G, Qn 715 mg/dL (603-1613)
[2020-08-25 18:10] LABS: Immunoglobulin M, Qn 38 mg/dL (20-172)
== END ==
PROVIDERS: Visit Provider Internal Medicine Nephrology
DX: Z11.9 Encounter for screening for infectious and parasitic diseases, unspecified (principal); N18.30 Chronic kidney disease, stage 3 unspecified; Z79.84 Long term (current) use of oral hypoglycemic drugs; D50.9 Iron deficiency anemia, unspecified
CPT/HCPCS: 36415; 80061; 80069; 81001; 82570; 82728; 82784; 83036; 83540; 83550; 84155; 85025; 86334; 86335

== ENCOUNTER → 2020-09-19 09:26 | Outpatient (CLI) | payer MEDICARE, SELFPAY ==
[2020-09-19 09:39] LABS: Microscopic, Urine URINE MICROSCOPIC (MICROSCOPIC)
[2020-09-19 10:03] LABS: Appearance,Urine CLEAR (Clear); Bilirubin,Urine Negative (Negative); Blood, Urine Negative (Negative); Color,Urine YELLOW (Yellow); Glucose,Urine (UA) Negative (Negative); Ketones,Urine Negative (Negative); Leukocyte Esterase,Urine Negative (Negative); Nitrate,Urine Negative (Negative); PH,Urine 7.5 (5.0-8.5); Protein,Urine 2+ (Negative); Urobilinogen,Urine 0.2 EU/dl (0.2)
[2020-09-19 10:04] LABS: Basophils % 0.3 % (0.1-2.0); Eosinophils # 0.5 K/mm3 (0.0-0.4); Hematocrit 28.8 % (42.0-52.0); Hemoglobin 8.9 g/dL (14.1-18.0); Lymphocytes % 12.7 % (10-50); Mean Corpuscular HGB Conc 30.8 g/dL (31.8-35.4); Mean Corpuscular Hemoglobin 25.3 pg (27.0-31.2); Mean Platelet Volume 8.8 fl (7.4-10.4); Monocytes # 0.5 K/mm3 (0.1-1.0); Monocytes % 6.3 % (1.7-9.3); Neutrophils # 5.7 K/mm3 (1.8-7.8); Neutrophils % 74.8 % (37.0-80.0); Platelet Count 245 K/mm3 (142-424); Red Blood Count 3.51 M/mm3 (4.60-6.20); Red Cell Distribution Width 15.8 % (11.5-17.5); White Blood Count 7.6 K/mm3 (4.8-10.8)
[2020-09-19 10:20] LABS: Creatinine,Urine Random 71 mg/dL (Not Estab.)
[2020-09-19 10:27] LABS: Albumin Level 3.9 g/dl (3.5-5.0)
[2020-09-19 10:28] LABS: Chloride 105 mmol/L (98-107); Sodium 140 mmol/L (136-145)
[2020-09-19 10:29] LABS: Potassium 4.1 mmoL/L (3.5-5.1)
[2020-09-19 10:29] LABS: Iron 39 ug/dL (49-181)
[2020-09-19 10:30] LABS: Chol/HDL Ratio 2.9 (1-3.5); Cholesterol 112 mg/dl (140-200); HDL Cholesterol 39 mg/dl (40-60); Phosphorous 4.4 mg/dl (2.5-4.5); Squamous Epithelial Cell,Urine Occasional #/hpf (0-5); Triglycerides 116 mg/dl (30-150); VLDL Cholesterol 23 mg/dL (0-40); WBC,Urine Occasional #/hpf (0-3)
[2020-09-19 10:31] LABS: Bacteria,Urine Trace /lpf
[2020-09-19 10:31] LABS: Alanine Aminotransferase 10 U/L (12-78); Albumin Level 3.9 g/dl (3.5-5.0); Albumin/Globulin Ratio 1.6 (1.1-1.8); Alkaline Phosphatase 105 U/L (38-126); Anion Gap 10.1 mEq/L (5-15); Aspartate Amino Transferase 24 U/L (17-59); Bilirubin,Total 0.7 mg/dl (0.2-1.3); Blood Urea Nitrogen 21 mg/dl (9-20); Carbon Dioxide 29 mmol/L (22.0-30.0); Estimated Glomerular Filt Rate 46 ml/min (>60); GFR (African American) 56 ML/MIN (>60); Globulin 2.5 g/dL (1.3-3.2); Total Protein,Serum 6.4 g/dl (6.3-8.2)
[2020-09-19 10:32] LABS: Calcium 9.6 mg/dl (8.4-10.2); Glucose 155 mg/dl (74-100)
[2020-09-19 10:40] LABS: Total Iron Binding Capacity 386 ug/dL (261-462)
[2020-09-19 10:41] LABS: Direct LDL Cholesterol 47.23 mg/dL (100-129)
[2020-09-19 11:05] LABS: Ferritin 36.4 ng/ml (17.9-464)
[2020-09-19 11:20] LABS: Hemoglobin A1C 7.8 % (4.0-6.0)
[2020-09-20 17:16] LABS: Albumin 3.1 g/dL (2.9-4.4); Alpha-1-Globulin 0.3 g/dL (0.0-0.4); Gamma Globulin 0.6 g/dL (0.4-1.8); Protein, Total 6.2 g/dL (6.0-8.5)
[2020-09-21 10:14] LABS: Immunoglobulin A, Qn 318 mg/dL (61-437); Immunoglobulin G, Qn 809 mg/dL (603-1613)
[2020-09-21 13:28] LABS: Immunoglobulin M, Qn 36 mg/dL (20-172)
[2020-09-21 15:58] LABS: Albumin, U 66.8 % (.); Alpha-1-Globulin, U 8.4 % (.); Alpha-2-Globulin, U 5.3 % (.); Beta Globulin, U 12.4 % (.); Gamma Globulin, U 7.1 % (.); M-Spike, % Not Observed % (Not Observed)
[2020-09-22 05:22] LABS: Protein,Total,Urine 212.8 mg/dL (Not Estab.)
== END ==
PROVIDERS: Visit Provider Internal Medicine Nephrology
DX: I12.9 Hypertensive chronic kidney disease with stage 1 through stage 4 chronic kidney disease, or unspecified chronic kidney disease (principal); N18.30 Chronic kidney disease, stage 3 unspecified; D64.9 Anemia, unspecified; E11.9 Type 2 diabetes mellitus without complications; Z79.84 Long term (current) use of oral hypoglycemic drugs
CPT/HCPCS: 36415; 80053; 80061; 81001; 82040; 82570; 82728; 82784; 83036; 83540; 83550; 84100; 84155; 84156; 84165; 84166; 85025; 86334; 86335

== ENCOUNTER 2020-10-28 09:25 | Outpatient (CLI) | payer MEDICARE, SELFPAY ==
[2020-10-28 10:05] VITALS: BP 160/75; PULSE 81; RESP 20; TEMP 36.7; O2SAT 95
[2020-10-28 10:40] VITALS: BP 132/74; PULSE 68; RESP 20; TEMP 37.1; O2SAT 95
== END 2020-10-28 10:40 | disposition home or self-care (01) ==
LOC: INF 09:31
PROVIDERS: Visit Provider Internal Medicine Nephrology
DX: D50.9 Iron deficiency anemia, unspecified (principal); N18.30 Chronic kidney disease, stage 3 unspecified
CPT/HCPCS: 96365; Q0138

== ENCOUNTER 2020-11-01 09:20 | Outpatient (CLI) | payer MEDICARE, SELFPAY ==
[2020-11-01 09:43] VITALS: BP 177/86; PULSE 93; RESP 18; TEMP 36.2; O2SAT 97
[2020-11-01 10:05] VITALS: BP 144/72; PULSE 78; RESP 18; O2SAT 98
[2020-11-01 10:35] VITALS: BP 141/78; PULSE 81; RESP 18; O2SAT 98
== END 2020-11-01 10:35 | disposition home or self-care (01) ==
LOC: INF 09:20
PROVIDERS: Visit Provider Internal Medicine Nephrology
DX: D50.9 Iron deficiency anemia, unspecified (principal); N18.30 Chronic kidney disease, stage 3 unspecified
CPT/HCPCS: 96374; Q0138

== ENCOUNTER → 2020-11-02 13:52 | Outpatient (CLI) | payer MEDICARE, SELFPAY ==
[2020-11-02 15:21] LABS: Coronavirus 19 IgG Antibody Positive (Negative); Coronavirus 19 IgM Antibody Negative (Negative)
== END ==
PROVIDERS: Visit Provider Internal Medicine Gastroenterology
DX: Z01.812 Encounter for preprocedural laboratory examination (principal); Z20.822 Contact with and (suspected) exposure to COVID-19; Z13.810 Encounter for screening for upper gastrointestinal disorder; Z12.11 Encounter for screening for malignant neoplasm of colon
CPT/HCPCS: 36415; 86328

== ENCOUNTER 2020-11-04 07:52 | Day surgery (SDC) | payer MEDICARE, SELFPAY ==
[2020-10-27 12:27] VITALS: BMI 21.2
[2020-11-04 08:36] VITALS: BP 189/103; PULSE 76; RESP 18; TEMP 36.4; O2SAT 99
--- NOTE | 2020-11-04 08:53 | HMH.ANESCL ---
[facility] Anesthesia Checklist - Patient Identification Patient Identification: Arm Band - Structural Data Admitted From: Home Planned Operative Procedure/s: EGD, Colonoscopy Consent for Planned Operative Procedure(s) Verified: Yes - NPO Status Verified Time NPO: 00:00 - Additional verifications Anesthesia Reactions: No Hx Blood Transfusions: No Blood Transfusion Reaction: No - Airway Assessment C-Spine Mobility Assessed: Yes TMJ Mobility Assessed: Yes Dentition: Poor Dentition (Missing) - Neurological Assessment Level of Consciousness: Awake, Alert Hx Seizures: No Numbness or tingling in extremities: No - Anesthesia Plan Anesthesia Risk discussed: Yes Anesthesia Plan: Verified ASA Class: III Anesthesia Type: MAC [facility] History I have reviewed the patient's past medical history: Yes Medical History: Reports:: Arrhythmia (bradycardia), Atrial Fibrillation, Coronary Artery Disease, Diabetes Mellitus Type 2, Gastroesophageal Reflux Disease(GERD), Hyperlipidemia, Hypertension, Internal Pacemaker, Migraine, Myocardial Infarction, Peripheral Artery Disease Denies:: Aneurysm, Asthma, Cancer, Congestive Heart Failure, Chronic Obstructive Pulmonary Disease (COPD), Cerebrovascular Accident, Deep Vein Thrombosis, Dementia, Diabetes Mellitus Type 1, Gastrointestinal Bleed, Lung Disease, Kidney Stones, MRSA, Osteoporosis, Pulmonary Embolism, Renal Disease, Seizures, Supraventricular Tachycardia, Transient Ischemic Attacks (TIA), Valvular Heart Disease *Have you ever received a pneumonia vaccine?: Yes *Have you received a flu vaccine this season?: Yes Other Medical History: Reports: Anemia, Arthritis. Denies: Blood Transfusion Reaction, Glaucoma, Hypothyroidism, Osteoporosis, Sinus Problems, Thyroid Disease Anesthesia experience/problems:: None Laterality Cases: Bilateral: Tonsillectomy Other Surgeries: Yes: No Previous Surgery, Appendectomy, Cardiac Catheterization, Cardiac Surgery (1997 Bypass surgery ), Cholecystectomy, Colonoscopy, Coronary Stent (heart, reports he has about 10 stents), Open Heart Surgery, Pacemaker, Other (Quadruple bypass surgery, cholecystectomy, vertebrae fusion in neck) Amputation: No Fractures: Yes - *Social History Last grade of school completed: High school graduate Smoking Status: Never smoker Tobacco Type: smokeless tobacco # Packs/Day (cigarettes): 0 Alcohol Intake: former Alcohol Intake Frequency:: other Substance Use Type: denies use *Occupational Status:: retired Housing: house Household Members: spouse *Travel in the last 8 weeks: None Family Hx:: Cancer, Diabetes
[2020-11-04 08:54] LABS: POC Glucose,Bedside 146 (70-110)
[2020-11-04 09:01] VITALS: O2SAT 97
--- NOTE | 2020-11-04 09:14 | HMH.PROC ---
[facility] Procedure Note Procedure Note:: Upper Endoscopy Procedure Report: Esophagogastroduodenoscopy with cold biopsies Endoscopost: Wood Carrillo II, MD Referring Physician: Abel Basilio M.D./Ernesto Washington MD ([facility]) Date of Procedure: November 04, 2020 Equipment: Olympus GIF 190 standard upper endoscope Sedation: MAC sedation Indications: Mr. Portillo is a 70-year-old gentleman who is here for diagnostic panendoscopy secondary to anemia. He is on Plavix and aspirin. His lab work from October 20, 2020 showed hemoglobin 8.9 and hematocrit 28.8. His creatinine was 1.50. The patient does get some heartburn and mild indigestion. He does have a history of dyspepsia. He has continued to lose weight over the last 5 years. He had an EGD with me in December 2018 as well as colonoscopy. He reports no melena, hematochezia or bright red blood per rectum. He reports no abdominal pain. He does have some chronic constipation. Procedure: Prior to the procedure, a history and physical exam was performed, and patient's medications and allergies were reviewed. The risks, benefits and alternatives of the sedation and procedure were discussed with the patient. All questions were answered and informed consent was obtained. The patient was brought to the procedure room. Patient identification and proposed procedure were verified by the physician and the nurse. The patient was placed in a left lateral decubitus position and the scope was passed under direct vision. Throughout the procedure, the patient's blood pressure, pulse, and oxygen saturations were monitored continuously. The upper GI endoscopy was accomplished without difficulty. The patient tolerated the procedure well. Findings: The scope was passed directly into the upper esophagus and advanced to the third portion of the duodenum. The post bulbar duodenum and duodenal bulb were normal with normal mucosa and conniventes. Cold biopsies were taken from the post bulbar duodenum and duodenal bulb to rule out celiac disease. The scope was withdrawn through a normal duodenal bulb and pylorus into the stomach. There was moderate bile reflux with linear reactive gastropathy and a few erosions of the antrum and body of the stomach. The remainder of the fundus of the stomach was grossly normal. Upon retroflexion there was no hiatal hernia. 2 biopsies were taken in the antrum and along the lesser curvature for histology to rule out gastritis and/or H pylori. The scope was then withdrawn into the esophagus. There was a serrated Z-line. There were tertiary contractions and evidence of moderate esophageal dysmotility. The remainder of the esophageal mucosa was normal. Impression: 1. Nonerosive GERD with moderate esophageal dysmotility 2. Bile reflux with moderate linear reactive gastropathy with a few erosions Plan: I am not convinced that the patient's anemia is related to the upper endoscopic findings. I do feel that it may be multifactorial. The patient is on anticoagulation. I will proceed with diagnostic colonoscopy. If the colonoscopy is unremarkable, I will recommend Hemoccult testing and if positive, PillCam/video capsule enteroscopy. I will check iron studies and if low, consider parenteral iron infusion.
--- NOTE | 2020-11-04 09:34 | HMH.PROC ---
[facility] Procedure Note Procedure Note:: Colonoscopy Procedure Report: Colonoscopy Endoscopist: Wood Carrillo II, MD Referring physician: Abel Basilio M.D./Ernesto Washington MD Date of Procedure: November 04, 2020 Equipment: Olympus 190 variable stiffness pediatric colonoscope Sedation: MAC sedation Indication: Mr. Portillo is a 70-year-old gentleman with symptomatic anemia presumably secondary to chronic GI blood loss and is here for diagnostic colonoscopy. He has been on Plavix and aspirin. He reports no hematochezia or bright red blood per rectum. He has lost a moderate amount of weight over the last 5 years. He does have some chronic constipation. He reports no abdominal pain. He did have a colonoscopy with id in December 2018 and had 5 diminutive colon polyps (tubular adenomas x5) which were removed. Procedure: Prior to the procedure, a history and physical exam was performed, and patient's medications and allergies were reviewed. The risks, benefits and alternatives of the sedation and procedure were discussed with the patient. All questions were answered and informed consent was obtained. The patient was brought to the procedure room. Patient identification and proposed procedure were verified by the physician and the nurse. The patient was placed in a left lateral decubitus position and the scope was passed under direct vision. Throughout the procedure, the patient's blood pressure, pulse, and oxygen saturations were monitored continuously. The colonoscopy was accomplished without difficulty. The patient tolerated the procedure well. Findings: On digital rectal examination there was normal rectal tone. There were no external hemorrhoids. The prostate was moderately firm and enlarged but symmetric without nodules. The colonoscope was introduced through the anal canal to the rectum and advanced to the cecum. The ileocecal valve and appendiceal orifice were identified. The scope was advanced a short distance into the ileum which appeared grossly normal. The scope was then withdrawn into the colon. The cecum, ascending and transverse colon and mucosa were grossly normal. There were scattered diverticuli throughout the descending and sigmoid colon (LEFT colon). The rectum itself was normal. Upon retroflexion within the rectum there were grade 1-2 internal hemorrhoids. The preparation was excellent throughout with [place] Preparation Score of 9. The cecal time was 10 minutes. Impression: 1. Left-sided diverticulosis 2. Grade 1-2 internal hemorrhoids Plan: There was no source for any obscure or occult gastrointestinal bleeding. I am going to recommend Hemoccult testing. I will also obtain iron studies. If the patient is Hemoccult positive, I would consider PillCam/video capsule enteroscopy. If he is Hemoccult negative, I would refer the patient to hematology if his anemia persists.
[2020-11-04 09:36] VITALS: BP 104/55; BP 173/84; PULSE 62; RESP 18; TEMP 36.3; O2SAT 99
[2020-11-04 10:10] VITALS: BP 181/82; PULSE 64; RESP 18; O2SAT 99
== END 2020-11-04 10:11 | disposition home or self-care (01) ==
LOC: OUTP 07:53
PROVIDERS: PCP Internal Medicine Adolescent Medicine; Visit Provider Internal Medicine Gastroenterology
PROC: 0DJ08ZZ Inspection of Upper Intestinal Tract, Via Natural or Artificial Opening Endoscopic (ICD-10-PCS; CPT 43235; principal; 2020-11-04 09:00)
DX: K21.9 Gastro-esophageal reflux disease without esophagitis; K22.4 Dyskinesia of esophagus; K31.89 Other diseases of stomach and duodenum; K92.2 Gastrointestinal hemorrhage, unspecified; Z86.010 Personal history of colon polyps; K57.30 Diverticulosis of large intestine without perforation or abscess without bleeding; K64.0 First degree hemorrhoids; D50.0 Iron deficiency anemia secondary to blood loss (chronic); Z79.02 Long term (current) use of antithrombotics/antiplatelets; Z79.82 Long term (current) use of aspirin; E11.9 Type 2 diabetes mellitus without complications; I10 Essential (primary) hypertension
CPT/HCPCS: 43239; 45378; 82962; 88305

== ENCOUNTER → 2020-11-08 10:54 | Outpatient (CLI) | payer MEDICARE, SELFPAY ==
[2020-11-08 10:59] LABS: Microscopic, Urine URINE MICROSCOPIC (MICROSCOPIC)
[2020-11-08 11:18] LABS: Appearance,Urine CLEAR (Clear); Bilirubin,Urine Negative (Negative); Blood, Urine Negative (Negative); Color,Urine YELLOW (Yellow); Glucose,Urine (UA) Negative (Negative); Ketones,Urine Negative (Negative); Leukocyte Esterase,Urine Negative (Negative); Nitrate,Urine Negative (Negative); PH,Urine 6.5 (5.0-8.5); Protein,Urine 2+ (Negative); Specific Gravity, Urine 1.025 (1.005-1.030); Urobilinogen,Urine 0.2 EU/dl (0.2)
[2020-11-08 11:19] LABS: Basophils % 0.5 % (0.1-2.0); Eosinophils # 0.3 K/mm3 (0.0-0.4); Eosinophils % 5.4 % (0.1-12.0); Hematocrit 28.1 % (42.0-52.0); Hemoglobin 8.9 g/dL (14.1-18.0); Lymphocytes # 0.8 K/mm3 (0.7-4.5); Lymphocytes % 13.8 % (10-50); Mean Corpuscular HGB Conc 31.8 g/dL (31.8-35.4); Mean Corpuscular Volume 84.9 fl (80-94); Mean Platelet Volume 7.9 fl (7.4-10.4); Monocytes # 0.5 K/mm3 (0.1-1.0); Monocytes % 7.3 % (1.7-9.3); Neutrophils # 4.5 K/mm3 (1.8-7.8); Neutrophils % 73.1 % (37.0-80.0); Platelet Count 188 K/mm3 (142-424); Red Blood Count 3.31 M/mm3 (4.60-6.20); Red Cell Distribution Width 19.5 % (11.5-17.5); White Blood Count 6.1 K/mm3 (4.8-10.8)
[2020-11-08 11:44] LABS: Squamous Epithelial Cell,Urine Occasional #/hpf (0-5)
[2020-11-08 17:20] LABS: Albumin Level 3.7 g/dl (3.5-5.0); Anion Gap 12.5 mEq/L (5-15); Blood Urea Nitrogen 21 mg/dl (9-20); Calcium 9.3 mg/dl (8.4-10.2); Carbon Dioxide 25 mmol/L (22.0-30.0); Chloride 103 mmol/L (98-107); Estimated Glomerular Filt Rate 50 ml/min (>60); GFR (African American) 61 ML/MIN (>60); Glucose 203 mg/dl (74-100); Phosphorous 4.5 mg/dl (2.5-4.5); Potassium 4.5 mmoL/L (3.5-5.1); Sodium 136 mmol/L (136-145)
[2020-11-08 17:42] LABS: Iron 73 ug/dL (49-181)
[2020-11-08 17:51] LABS: Total Iron Binding Capacity 323 ug/dL (261-462)
[2020-11-08 18:19] LABS: Ferritin 382 ng/ml (17.9-464)
== END ==
PROVIDERS: Visit Provider Internal Medicine Nephrology
DX: E61.1 Iron deficiency (principal); N18.30 Chronic kidney disease, stage 3 unspecified
CPT/HCPCS: 36415; 80069; 81001; 82728; 83540; 83550; 85025

== ENCOUNTER → 2020-11-11 11:00 | Outpatient (CLI) | payer MEDICARE, SELFPAY ==
[2020-11-14 11:59] LABS: Occult Blood,Stool Positive (Negative)
== END ==
PROVIDERS: Visit Provider Internal Medicine Gastroenterology
DX: D64.9 Anemia, unspecified (principal)
CPT/HCPCS: 82272; G0328

== ENCOUNTER → 2020-11-12 11:01 | Outpatient (CLI) | payer MEDICARE, SELFPAY ==
[2020-11-14 11:59] LABS: Occult Blood,Stool Positive (Negative)
== END ==
PROVIDERS: Visit Provider Internal Medicine Gastroenterology
DX: D64.9 Anemia, unspecified (principal)
CPT/HCPCS: 82272; G0328

== ENCOUNTER → 2020-11-13 11:00 | Outpatient (CLI) | payer MEDICARE, SELFPAY ==
[2020-11-14 11:59] LABS: Occult Blood,Stool Negative (Negative)
== END ==
PROVIDERS: Visit Provider Internal Medicine Gastroenterology
DX: D64.9 Anemia, unspecified (principal)
CPT/HCPCS: 82272; G0328

== ENCOUNTER 2020-11-22 08:57 | Outpatient (CLI) | payer MEDICARE, SELFPAY ==
[2020-11-22 09:30] VITALS: BP 152/98; PULSE 93; RESP 18; TEMP 36.4
[2020-11-22 10:03] VITALS: BP 117/75; PULSE 78; RESP 18
== END 2020-11-22 10:03 | disposition home or self-care (01) ==
LOC: INF 08:57
PROVIDERS: Visit Provider Internal Medicine Nephrology
DX: N18.4 Chronic kidney disease, stage 4 (severe) (principal); D63.1 Anemia in chronic kidney disease; D50.9 Iron deficiency anemia, unspecified
CPT/HCPCS: 96372; 96374; J0885; Q0138

== ENCOUNTER 2020-11-25 08:55 | Outpatient (CLI) | payer MEDICARE, SELFPAY ==
[2020-11-25 09:20] VITALS: BP 145/78; PULSE 83; RESP 18; O2SAT 98
[2020-11-25 09:49] VITALS: BP 124/70; PULSE 76; RESP 18
== END 2020-11-25 09:49 | disposition home or self-care (01) ==
LOC: INF 08:59
PROVIDERS: Visit Provider Internal Medicine Nephrology
DX: D50.9 Iron deficiency anemia, unspecified (principal); N18.4 Chronic kidney disease, stage 4 (severe)
CPT/HCPCS: 96374; Q0138

== ENCOUNTER 2020-12-06 09:10 | Outpatient (CLI) | payer MEDICARE, SELFPAY ==
[2020-12-06 09:13] VITALS: BMI 20.1
[2020-12-06 09:35] LABS: Hematocrit 36.4 % (42.0-52.0); Hemoglobin 11.7 g/dL (14.1-18.0)
--- NOTE | 2020-12-06 09:45 | PC.NURSE ---
0945-pt here for lab check for possible procrit injection if hgb < 11; pt hgb today 11.7; pt will return in one month for repeat labs.
[2020-12-06 09:51] LABS: Potassium 3.8 mmoL/L (3.5-5.1)
[2020-12-06 09:54] LABS: Creatinine Clearance Estimated 45 mL/min (50-200); Estimated Glomerular Filt Rate 40 ml/min (>60); GFR (African American) 49 ML/MIN (>60); Iron 101 ug/dL (49-181)
[2020-12-06 10:03] LABS: Total Iron Binding Capacity 207 ug/dL (261-462)
[2020-12-06 10:31] LABS: Ferritin 430 ng/ml (17.9-464)
== END 2020-12-06 09:45 | disposition home or self-care (01) ==
LOC: INF 09:12
PROVIDERS: Visit Provider Internal Medicine Nephrology
DX: N18.4 Chronic kidney disease, stage 4 (severe) (principal); D63.1 Anemia in chronic kidney disease
CPT/HCPCS: 82565; 82728; 83540; 83550; 84132; 85014; 85018

== ENCOUNTER 2020-12-13 11:55 | Outpatient (CLI) | payer MEDICARE, SELFPAY ==
[2020-12-13 12:00] VITALS: BMI 20.1
--- NOTE | 2020-12-13 12:10 | PC.NURSE ---
pt here for labs . HH drawn per Dr. Fardia atwood.
[2020-12-13 12:19] LABS: Hemoglobin 11.7 g/dL (14.1-18.0)
== END 2020-12-13 12:12 | disposition home or self-care (01) ==
LOC: INF 11:58
PROVIDERS: PCP Internal Medicine Adolescent Medicine; Visit Provider Internal Medicine Adolescent Medicine
DX: R53.1 Weakness (principal)
CPT/HCPCS: 85014; 85018

== ENCOUNTER → 2020-12-15 12:56 | Outpatient (CLI) | payer MEDICARE, SELFPAY ==
[2020-12-15 13:28] LABS: Basophils # 0.1 K/mm3 (0-0.2); Basophils % 0.7 % (0.1-2.0); Eosinophils # 0.3 K/mm3 (0.0-0.4); Eosinophils % 4.1 % (0.1-12.0); Hematocrit 35.4 % (42.0-52.0); Hemoglobin 11.6 g/dL (14.1-18.0); Lymphocytes # 1.1 K/mm3 (0.7-4.5); Lymphocytes % 13.7 % (10-50); Mean Corpuscular HGB Conc 32.9 g/dL (31.8-35.4); Mean Corpuscular Hemoglobin 29.6 pg (27.0-31.2); Mean Corpuscular Volume 90.1 fl (80-94); Mean Platelet Volume 8.2 fl (7.4-10.4); Monocytes # 0.6 K/mm3 (0.1-1.0); Monocytes % 7.1 % (1.7-9.3); Neutrophils % 74.4 % (37.0-80.0); Platelet Count 210 K/mm3 (142-424); Red Blood Count 3.93 M/mm3 (4.60-6.20); Red Cell Distribution Width 17.8 % (11.5-17.5); White Blood Count 8.1 K/mm3 (4.8-10.8)
[2020-12-15 14:22] LABS: Chloride 101 mmol/L (98-107); Potassium 4.2 mmoL/L (3.5-5.1); Sodium 138 mmol/L (136-145)
[2020-12-15 14:24] LABS: Blood Urea Nitrogen 26 mg/dl (9-20); Estimated Glomerular Filt Rate 46 ml/min (>60); GFR (African American) 56 ML/MIN (>60)
[2020-12-15 14:25] LABS: Alanine Aminotransferase 17 U/L (12-78); Albumin/Globulin Ratio 1.5 (1.1-1.8); Alkaline Phosphatase 93 U/L (38-126); Anion Gap 15.2 mEq/L (5-15); Aspartate Amino Transferase 26 U/L (17-59); Bilirubin,Total 0.5 mg/dl (0.2-1.3); Calcium 9.3 mg/dl (8.4-10.2); Carbon Dioxide 26 mmol/L (22.0-30.0); Globulin 2.6 g/dL (1.3-3.2); Glucose 244 mg/dl (74-100); Total Protein,Serum 6.6 g/dl (6.3-8.2)
[2020-12-15 15:00] LABS: Ferritin 338 ng/ml (17.9-464)
== END ==
PROVIDERS: Visit Provider Internal Medicine Adolescent Medicine
DX: D50.0 Iron deficiency anemia secondary to blood loss (chronic) (principal)
CPT/HCPCS: 36415; 80053; 82728; 85025

== ENCOUNTER → 2020-12-26 14:16 | Outpatient (CLI) | payer MEDICARE, SELFPAY ==
--- NOTE | 2020-12-26 | US_ITS ---
PROCEDURE: MM DIG MAMM BI DX W/CAD Digital Breast Tomosynthesis Included Limited right breast ultrasound Limited left breast ultrasound CLINICAL INDICATION: MESTODYNIA,LT BREAST LUMP COMPARISON: US US BREAST LT COMPLETE from 12/26/2020 US US BREAST RT COMPLETE from 12/26/2020 TECHNIQUE: Standard CC and MLO images and 3D Tomosynthesis was obtained. R2 CAD reviewed. FINDINGS: There are scattered bilateral fibroglandular elements which may obscure a lesion on mammography. Small bilateral flame shaped subareolar densities are noted with changes most compatible with gynecomastia. No other abnormality. Limited left breast ultrasound of the subareolar region and site of lump at 12 o'clock shows mild hypoechoic change with no discrete cyst or solid mass. Limited right breast ultrasound of the subareolar region shows similar mild hypoechoic change without discrete cyst or solid mass. IMPRESSION: Small bilateral flame shaped subareolar densities in a pattern most consistent with bilateral gynecomastia. No discrete ultrasound correlate in either subareolar region of the breast. Nothing to definitively correlate with a lump in the subareolar left breast. Therefore a clinical evaluation by a clinical breast campground caretaker is recommended. From an imaging standpoint, repeat bilateral digital diagnostic mammograms in 6 months are recommended. BI-RAD Category: 3 Probably Benign Finding Short Term Follow-Up FOLLOW-UP: Bilateral digital diagnostic mammograms in 6 months. (A letter has been sent to the patient regarding results of the study.) Dictated by: Daniel Vargas 12/27/2020 09:30 Daniel Vargas in [place] 12/27/2020 09:30
--- NOTE | 2020-12-26 14:19 | MM_ITS ---
PROCEDURE: MM DIG MAMM BI DX W/CAD Digital Breast Tomosynthesis Included Limited right breast ultrasound Limited left breast ultrasound CLINICAL INDICATION: MESTODYNIA,LT BREAST LUMP COMPARISON: US US BREAST LT COMPLETE from 12/26/2020 US US BREAST RT COMPLETE from 12/26/2020 TECHNIQUE: Standard CC and MLO images and 3D Tomosynthesis was obtained. R2 CAD reviewed. FINDINGS: There are scattered bilateral fibroglandular elements which may obscure a lesion on mammography. Small bilateral flame shaped subareolar densities are noted with changes most compatible with gynecomastia. No other abnormality. Limited left breast ultrasound of the subareolar region and site of lump at 12 o'clock shows mild hypoechoic change with no discrete cyst or solid mass. Limited right breast ultrasound of the subareolar region shows similar mild hypoechoic change without discrete cyst or solid mass. IMPRESSION: Small bilateral flame shaped subareolar densities in a pattern most consistent with bilateral gynecomastia. No discrete ultrasound correlate in either subareolar region of the breast. Nothing to definitively correlate with a lump in the subareolar left breast. Therefore a clinical evaluation by a clinical breast anesthesiologist and critical care is recommended. From an imaging standpoint, repeat bilateral digital diagnostic mammograms in 6 months are recommended. BI-RAD Category: 3 Probably Benign Finding Short Term Follow-Up FOLLOW-UP: Bilateral digital diagnostic mammograms in 6 months. (A letter has been sent to the patient regarding results of the study.) Dictated by: Daniel Vargas 12/27/2020 09:30 Daniel Vargas in [facility] 12/27/2020 09:30
== END ==
PROVIDERS: PCP Internal Medicine Adolescent Medicine; Visit Provider Internal Medicine Adolescent Medicine
DX: N64.4 Mastodynia (principal); N63.20 Unspecified lump in the left breast, unspecified quadrant
CPT/HCPCS: 76641; 77062; 77066; G0279

== ENCOUNTER 2021-01-03 08:34 | Outpatient (CLI) | payer MEDICARE, SELFPAY ==
[2021-01-03 08:34] VITALS: BMI 19.5
[2021-01-03 09:17] LABS: Hematocrit 32.4 % (42.0-52.0); Hemoglobin 11.1 g/dL (14.1-18.0)
--- NOTE | 2021-01-03 09:30 | PC.NURSE ---
0930-pt here for labs for possible procrit injection if hgb < 11; pt's hgb 11.1 next appointment made for month out;called and left message for office to notify md that it is the 3 consecutive time without procrit injection
[2021-01-03 10:02] LABS: Potassium 4.2 mmoL/L (3.5-5.1)
[2021-01-03 10:05] LABS: Creatinine Clearance Estimated 53 mL/min (50-200); Estimated Glomerular Filt Rate 50 ml/min (>60); GFR (African American) 61 ML/MIN (>60); Iron 75 ug/dL (49-181)
[2021-01-03 10:16] LABS: Total Iron Binding Capacity 245 ug/dL (261-462)
[2021-01-03 10:44] LABS: Ferritin 290 ng/ml (17.9-464)
== END 2021-01-03 09:30 | disposition home or self-care (01) ==
LOC: INF 08:34
PROVIDERS: Visit Provider Internal Medicine Nephrology
DX: D63.1 Anemia in chronic kidney disease (principal); N18.4 Chronic kidney disease, stage 4 (severe)
CPT/HCPCS: 36415; 82565; 82728; 83540; 83550; 84132; 85014; 85018

== ENCOUNTER 2021-01-11 08:30 | Outpatient (RCR) | payer MEDICARE, SELFPAY ==
--- NOTE | 2020-12-27 16:57 | HMH.PTOPWND ---
Rehab Outpt Wound Evaluation Rehab OP Wound Evaluation Start: 12/27/20 16:49 Freq: Status: Active Protocol: Document 12/27/20 16:49 PWSARINA (Rec: 12/27/20 16:56 [email or web address] [id number]) Electronically Signed By Bart Raman, PT 12/27/20 16:49 Subjective/History History History This is the initial wound clinic evaluation for Higinio Portillo. Pt is a 70 y/o male referred to wound clinic for new wound on L shoulder blade. Pt reports ~ 30 years ago he had heart ablation and received a brn on his L shoulder blade. Pt reports ~ 5 years ago scab popped up . Pt rpeorrts he saw 2 dermatologists who took biopsy but aggravated the wound and increased its size, causing it to stall in healing and maintained an open wound for months. Pt reports he just developed new scab ~ 1 month ago and wants to nip it in the bud before it opens up Subjective Subjective no complaints of pain Wound Eval Wound Left Upper Medial Back Wound Type Burn Is This a Chronic Wound Yes Wound Length (cm) 0.7 Wound Width (cm) 0.7 Wound Depth (cm) 0.5 Wound Bed Appearance Beefy Red Percentage Granulated (%) 100 Wound Margins Description Well Defined Surrounding Tissue Appearance [place] Surrounding Tissue Temperature Warm Drainage Description None Drainage Amount None Drainage Odor No Odor Dressing Status Open to Air Primary Dressing medihoney Wound Secondary Dressing Type Absorbant Pad Comment optifoam lite Wound Debridement Method Sharps Wound Debridement Amount of Tissue Minimal Removed Wound Debridement Result Healthy Tissue Revealed Dressing Change Date 12/27/20 Wound Problems/Impairments Impairments Problems/Impairmments Wound Care Needs Prognosis Rehab Potential Fair Clinical Impression Consistent with Diagnosis Yes Short Term Goals Number of Weeks 4 Decrease Wound Area Yes: 25 Incoming Freight Clerk Goals Number of Weeks 8 Decrease Wound Area Yes: 50 Patient to be Ind w
== END 2021-01-11 08:35 | disposition home or self-care (01) ==
LOC: PT 08:30
PROVIDERS: PCP Internal Medicine Adolescent Medicine; Visit Provider Internal Medicine Adolescent Medicine
DX: L98.421 Non-pressure chronic ulcer of back limited to breakdown of skin (principal)
CPT/HCPCS: 97162; 97597

== ENCOUNTER → 2021-01-11 08:44 | Outpatient (CLI) | payer MEDICARE, SELFPAY ==
[2021-01-11 09:08] LABS: Microscopic, Urine URINE MICROSCOPIC (MICROSCOPIC)
[2021-01-11 09:29] LABS: Basophils % 0.3 % (0.1-2.0); Eosinophils # 0.4 K/mm3 (0.0-0.4); Eosinophils % 5.4 % (0.1-12.0); Hematocrit 32.4 % (42.0-52.0); Hemoglobin 11.1 g/dL (14.1-18.0); Lymphocytes # 0.9 K/mm3 (0.7-4.5); Lymphocytes % 12.6 % (10-50); Mean Corpuscular HGB Conc 34.2 g/dL (31.8-35.4); Mean Corpuscular Hemoglobin 30.5 pg (27.0-31.2); Mean Corpuscular Volume 89.4 fl (80-94); Mean Platelet Volume 8.3 fl (7.4-10.4); Monocytes # 0.7 K/mm3 (0.1-1.0); Monocytes % 9.1 % (1.7-9.3); Neutrophils # 5.2 K/mm3 (1.8-7.8); Neutrophils % 72.6 % (37.0-80.0); Platelet Count 195 K/mm3 (142-424); Red Blood Count 3.63 M/mm3 (4.60-6.20); White Blood Count 7.1 K/mm3 (4.8-10.8)
[2021-01-11 09:43] LABS: Albumin Level 3.9 g/dl (3.5-5.0); Appearance,Urine CLEAR (Clear); Bilirubin,Urine Negative (Negative); Blood, Urine Negative (Negative); Chloride 104 mmol/L (98-107); Color,Urine YELLOW (Yellow); Glucose,Urine (UA) Negative (Negative); Ketones,Urine Negative (Negative); Leukocyte Esterase,Urine Negative (Negative); Nitrate,Urine Negative (Negative); Potassium 3.8 mmoL/L (3.5-5.1); Protein,Urine 2+ (Negative); Sodium 139 mmol/L (136-145); Urobilinogen,Urine 0.2 EU/dl (0.2)
[2021-01-11 09:45] LABS: Blood Urea Nitrogen 16 mg/dl (9-20)
[2021-01-11 09:46] LABS: Anion Gap 11.8 mEq/L (5-15); Carbon Dioxide 27 mmol/L (22.0-30.0); Estimated Glomerular Filt Rate 50 ml/min (>60); GFR (African American) 61 ML/MIN (>60); Glucose 177 mg/dl (74-100); Iron 74 ug/dL (49-181); Phosphorous 4.2 mg/dl (2.5-4.5)
[2021-01-11 10:03] LABS: Total Iron Binding Capacity 135 ug/dL (261-462)
[2021-01-11 10:27] LABS: Ferritin 258 ng/ml (17.9-464)
[2021-01-11 11:13] LABS: Bacteria,Urine Trace /lpf; WBC,Urine Occasional #/hpf (0-3)
== END ==
PROVIDERS: Visit Provider Internal Medicine Nephrology
DX: E61.1 Iron deficiency (principal); N18.30 Chronic kidney disease, stage 3 unspecified
CPT/HCPCS: 36415; 80069; 81001; 82728; 83540; 83550; 85025

== ENCOUNTER → 2021-01-23 15:04 | Outpatient (CLI) | payer MEDICARE, SELFPAY ==
[2021-01-23 17:31] LABS: HCG Qualitative, Serum Negative (Negative)
[2021-01-23 17:40] LABS: Bilirubin,Unconjugated 0.1 mg/dL (0.0-1.1)
[2021-01-23 17:41] LABS: Alanine Aminotransferase 14 U/L (12-78); Albumin Level 4.4 g/dl (3.5-5.0); Alkaline Phosphatase 101 U/L (38-126); Aspartate Amino Transferase 23 U/L (17-59); Bilirubin,Direct 0.4 mg/dl (0.0-0.4); Bilirubin,Indirect 0.1 mg/dL (0.0-0.9); Bilirubin,Total 0.5 mg/dl (0.2-1.3); Total Protein,Serum 7.2 g/dl (6.3-8.2)
[2021-01-23 17:58] LABS: Triiodothryronine (T3) Uptake 36 % (23.5-40.5)
[2021-01-23 17:59] LABS: Free Thyroxine Index 3.1 ug/dL (5.93-13.13); T4 (Thyroxine) 8.6 ug/dl (5.53-11.0)
[2021-01-23 18:12] LABS: Thyroid Stimulating Hormone 1.76 uIU/mL (0.465-4.68)
[2021-01-25 09:01] LABS: Estradiol 20.3 pg/mL (7.6-42.6); LH 14.4 mIU/mL (1.7-8.6)
[2021-01-29 03:36] LABS: Testosterone, Total, LC/MS 327.2 ng/dL (264.0-916.0)
== END ==
PROVIDERS: Visit Provider Surgery
DX: N63.0 Unspecified lump in unspecified breast (principal); E11.9 Type 2 diabetes mellitus without complications; Z79.84 Long term (current) use of oral hypoglycemic drugs; N62 Hypertrophy of breast
CPT/HCPCS: 36415; 80076; 82670; 83002; 84402; 84403; 84436; 84443; 84479; 84703

== ENCOUNTER 2021-01-31 09:06 | Outpatient (CLI) | payer MEDICARE, SELFPAY ==
[2021-01-31 09:06] VITALS: BMI 18.3
[2021-01-31 09:36] LABS: Hematocrit 29.8 % (42.0-52.0); Hemoglobin 10.1 g/dL (14.1-18.0)
[2021-01-31 09:42] LABS: Potassium 3.5 mmoL/L (3.5-5.1)
[2021-01-31 09:45] LABS: Creatinine Clearance Estimated 46 mL/min (50-200); Estimated Glomerular Filt Rate 46 ml/min (>60); GFR (African American) 56 ML/MIN (>60); Iron 87 ug/dL (49-181)
[2021-01-31 09:55] LABS: Total Iron Binding Capacity 213 ug/dL (261-462)
[2021-01-31 10:07] VITALS: BP 126/70; PULSE 85; RESP 18; TEMP 36.5; O2SAT 98
[2021-01-31 10:23] LABS: Ferritin 242 ng/ml (17.9-464)
== END 2021-01-31 10:30 | disposition home or self-care (01) ==
LOC: INF 09:06
PROVIDERS: Visit Provider Internal Medicine Nephrology
DX: D63.1 Anemia in chronic kidney disease (principal); N18.4 Chronic kidney disease, stage 4 (severe)
CPT/HCPCS: 36415; 82565; 82728; 83540; 83550; 84132; 85014; 85018; 96372; J0885

== ENCOUNTER → 2021-02-01 10:21 | Outpatient (CLI) | payer MEDICARE, SELFPAY | PROVIDERS: Visit Provider Internal Medicine Gastroenterology | DX: Z01.812 Encounter for preprocedural laboratory examination (principal); Z11.52 Encounter for screening for COVID-19 | CPT/HCPCS: U0003 ==

== ENCOUNTER 2021-02-03 10:21 | Day surgery (SDC) | payer MEDICARE, SELFPAY ==
[2021-02-03 10:52] VITALS: BP 140/65; PULSE 46; RESP 18; TEMP 36.8; O2SAT 100
[2021-02-03 11:11] LABS: POC Glucose,Bedside 104 (70-110)
--- NOTE | 2021-02-03 12:09 | P.PCN_ITS ---
[facility] Procedure Note Procedure Note:: Small Bowel Enteroscopy procedure Report: Small bowel enteroscopy Endoscopost: Wood Carrillo II, MD Referring Physician: Abel Basilio M.D. Date of Procedure: February 03, 2021 Equipment: Olympus GIF 190 standard upper endoscope Sedation: MAC sedation Indications: Mr. Portillo is a 70-year-old gentleman with iron deficiency anemia and occult gastrointestinal blood loss. He does have a mildly elevated creatinine of 1.50. He was doing better but his recent hemoglobin/hematocrit was declined at 10.1/29.8. The patient did have diagnostic panendoscopy and October 2020 and there was some moderate reactive gastropathy. The colonoscopy showed some diverticulosis. The patient subsequently had PillCam (capsule enteroscopy) on December 22, 2020. There was some proximal small bowel congestion or edema. Push enteroscopy was performed for further evaluation. Procedure: Prior to the procedure, a history and physical exam was performed, and patient's medications and allergies were reviewed. The risks, benefits and alternatives of the sedation and procedure were discussed with the patient. All questions w ere answered and informed consent was obtained. The patient was brought to the procedure room. Patient identification and proposed procedure were verified by the physician and the nurse. The patient was placed in a left lateral decubitus position and the scope was passed under direct vision. Throughout the procedure, the patient's blood pressure, pulse, and oxygen saturations were monitored continuously. The upper GI endoscopy was accomplished without difficulty. The patient tolerated the procedure well. Findings: The scope was passed directly into the upper esophagus and advanced to the mid jejunum. Upon withdrawal the conniventes and mucosa was entirely normal. There was some brown/black speckled pigmentation mildly throughout the jejunum and duodenum consistent with pseudomelanosis. The area in question in the distal duodenum/proximal jejunum was examined very carefully and there was a lot of peristalsis but no submucosal lesions or abnormalities in this region. The entire small bowel identified was normal in appearance. The scope was withdrawn through a normal duodenal bulb and pylorus into the stomach. There was moderate linear reactive gastropathy of the antrum body and fundus with bile reflux. The esophageal mucosa was normal. Impression: 1. Moderate linear reactive gastropathy 2. Pseudomelanosis (very mild) of duodenum/jejunum Plan: Pseudomelanosis of the GI tract is benign and has been associated with chronic renal insufficiency and sometimes other medical conditions. It is not a cause of gastrointestinal bleeding but is often an incidental finding in persons at present with obscure GI blood loss. Some speculate that it is accumulation of iron in macrophages and may be involved with impaired transport of iron in the proximal duodenum. This results in impaired iron absorption.
[2021-02-03 12:15] VITALS: BP 106/61; PULSE 60; RESP 18; TEMP 36.8; O2SAT 99
--- NOTE | 2021-02-03 12:21 | HMH.ANESCL ---
[facility] Anesthesia Checklist - Structural Data Admitted From: Home Planned Operative Procedure/s: egd Consent for Planned Operative Procedure(s) Verified: Yes - Additional verifications Anesthesia Reactions: No Hx Blood Transfusions: No Blood Transfusion Reaction: No - Airway Assessment C-Spine Mobility Assessed: Yes TMJ Mobility Assessed: Yes Dentition: Good Dentition - Neurological Assessment Level of Consciousness: Awake, Alert, Appropriate - Anesthesia Plan Anesthesia Risk discussed: Yes Anesthesia Plan: Patient unable to respond/answer ASA Class: III Anesthesia Type: MAC [facility] History I have reviewed the patient's past medical history: Yes Medical History: Reports:: Arrhythmia, Atrial Fibrillation, Coronary Artery Disease, Diabetes Mellitus Type 2, Gastroesophageal Reflux Disease(GERD), Hyperlipidemia, Hypertension, Internal Pacemaker, Migraine, Myocardial Infarction, Peripheral Artery Disease Denies:: Aneurysm, Asthma, Cancer, Congestive Heart Failure, Chronic Obstructive Pulmonary Disease (COPD), Cerebrovascular Accident, Deep Vein Thrombosis, Dementia, Diabetes Mellitus Type 1, Gastrointestinal Bleed, Lung Disease, Kidney Stones, MRSA, Osteoporosis, Pulmonary Embolism, Renal Disease, Seizures, Supraventricular Tachycardia, Transient Ischemic Attacks (TIA), Valvular Heart Disease *Have you ever received a pneumonia vaccine?: Yes *Have you received a flu vaccine this season?: Yes Other Medical History: Reports: Anemia, Arthritis. Denies: Blood Transfusion Reaction, Glaucoma, Hypothyroidism, Osteoporosis, Sinus Problems, Thyroid Disease Anesthesia experience/problems:: none Laterality Cases: Bilateral: Tonsillectomy Other Surgeries: Yes: No Previous Surgery, Appendectomy, Cardiac Catheterization, Cardiac Surgery (1997 Bypass surgery ), Cholecystectomy, Colonoscopy, Coronary Stent (heart, reports he has about 10 stents), Hernia Repair, Open Heart Surgery, Pacemaker, Other Amputation: No Fractures: Yes - *Social History Last grade of school completed: High school graduate Smoking Status: Former smoker Tobacco Type: smokeless tobacco # Packs/Day (cigarettes): 0 Alcohol Intake: never Alcohol Intake Frequency:: other Substance Use Type: denies use *Occupational Status:: retired Housing: house Household Members: spouse *Travel in the last 8 weeks: None Family Hx:: Cancer, Diabetes
[2021-02-03 12:25] VITALS: BP 105/64; PULSE 59; RESP 18; O2SAT 99
[2021-02-03 12:35] VITALS: BP 134/77; PULSE 56; RESP 18; O2SAT 99
[2021-02-03 12:52] VITALS: BP 146/82; PULSE 59; RESP 18; O2SAT 99
[2021-02-03 14:27] VITALS: O2SAT 97
== END 2021-02-03 12:59 | disposition home or self-care (01) ==
LOC: OUTP 10:22
PROVIDERS: PCP Internal Medicine Adolescent Medicine; Visit Provider Internal Medicine Gastroenterology
PROC: (CPT 44360; principal; 2021-02-03 11:30)
DX: K31.9 Disease of stomach and duodenum, unspecified (principal); K31.89 Other diseases of stomach and duodenum; E11.9 Type 2 diabetes mellitus without complications; I10 Essential (primary) hypertension; E78.5 Hyperlipidemia, unspecified; I48.91 Unspecified atrial fibrillation; I25.10 Atherosclerotic heart disease of native coronary artery without angina pectoris; Z95.0 Presence of cardiac pacemaker; I25.2 Old myocardial infarction; I73.9 Peripheral vascular disease, unspecified; I49.9 Cardiac arrhythmia, unspecified; Z88.0 Allergy status to penicillin
CPT/HCPCS: 44360; 82962

== ENCOUNTER 2021-02-14 09:10 | Outpatient (CLI) | payer MEDICARE, SELFPAY ==
[2021-02-14 09:19] VITALS: BMI 20.1
[2021-02-14 09:55] LABS: Hematocrit 31.5 % (42.0-52.0); Hemoglobin 10.5 g/dL (14.1-18.0)
[2021-02-14 09:59] LABS: Potassium 3.8 mmoL/L (3.5-5.1)
[2021-02-14 10:01] LABS: Creatinine Clearance Estimated 54 mL/min (50-200); Estimated Glomerular Filt Rate 50 ml/min (>60); GFR (African American) 61 ML/MIN (>60)
[2021-02-14 10:32] VITALS: BP 140/72; PULSE 79; RESP 17; TEMP 36.7; O2SAT 97
== END 2021-02-14 10:35 | disposition home or self-care (01) ==
LOC: INF 09:18
PROVIDERS: Visit Provider Internal Medicine Nephrology
DX: N18.4 Chronic kidney disease, stage 4 (severe) (principal); D63.1 Anemia in chronic kidney disease
CPT/HCPCS: 36415; 82565; 84132; 85014; 85018; 96372; J0885

== ENCOUNTER 2021-02-28 09:11 | Outpatient (CLI) | payer MEDICARE, SELFPAY ==
[2021-02-28 09:15] VITALS: BMI 20.1
[2021-02-28 09:37] LABS: Hematocrit 33.9 % (42.0-52.0); Hemoglobin 11.1 g/dL (14.1-18.0)
--- NOTE | 2021-02-28 09:38 | PC.NURSE ---
obtained blood from pt for labs as ordered per md per venipuncture using butterfly needle to lt ac. site secured with 2x2 gauze and coban after obtaining needed blood. specimen sent to lab for analysis.
[2021-02-28 09:39] LABS: Potassium 3.6 mmoL/L (3.5-5.1)
[2021-02-28 09:42] LABS: Creatinine Clearance Estimated 54 mL/min (50-200); Estimated Glomerular Filt Rate 50 ml/min (>60); GFR (African American) 61 ML/MIN (>60); Iron 77 ug/dL (49-181)
[2021-02-28 09:50] VITALS: BP 109/67; PULSE 71; RESP 18; TEMP 36.6; O2SAT 98
[2021-02-28 09:54] LABS: Total Iron Binding Capacity 251 ug/dL (261-462)
[2021-02-28 10:42] LABS: Ferritin 126 ng/ml (17.9-464)
== END 2021-02-28 09:50 | disposition home or self-care (01) ==
LOC: INF 09:11
PROVIDERS: Visit Provider Internal Medicine Nephrology
DX: D63.1 Anemia in chronic kidney disease (principal); N18.4 Chronic kidney disease, stage 4 (severe)
CPT/HCPCS: 82565; 82728; 83540; 83550; 84132; 85014; 85018

== ENCOUNTER 2021-03-28 08:56 | Outpatient (CLI) | payer MEDICARE, SELFPAY ==
[2021-03-28 09:01] VITALS: BMI 20.1
[2021-03-28 09:30] LABS: Hematocrit 32.3 % (42.0-52.0); Hemoglobin 10.5 g/dL (14.1-18.0)
[2021-03-28 09:40] LABS: Creatinine Clearance Estimated 58 mL/min (50-200); Estimated Glomerular Filt Rate 55 ml/min (>60); GFR (African American) 66 ML/MIN (>60); Potassium 3.7 mmoL/L (3.5-5.1)
[2021-03-28 09:43] LABS: Iron 71 ug/dL (49-181)
[2021-03-28 09:52] LABS: Total Iron Binding Capacity 251 ug/dL (261-462)
[2021-03-28 10:10] VITALS: BP 130/64; PULSE 61; RESP 18
[2021-03-28 10:16] LABS: Ferritin 207 ng/ml (17.9-464)
== END 2021-03-28 10:10 | disposition home or self-care (01) ==
LOC: INF 08:57
PROVIDERS: PCP Internal Medicine Adolescent Medicine; Visit Provider Internal Medicine Nephrology
DX: N18.4 Chronic kidney disease, stage 4 (severe) (principal); D63.1 Anemia in chronic kidney disease
CPT/HCPCS: 82565; 82728; 83540; 83550; 84132; 85014; 85018; 96372; J0885

== ENCOUNTER 2021-04-11 09:11 | Outpatient (CLI) | payer MEDICARE, SELFPAY ==
[2021-04-11 09:24] VITALS: BMI 20.1
[2021-04-11 09:45] LABS: Hematocrit 33.2 % (42.0-52.0); Hemoglobin 10.9 g/dL (14.1-18.0)
[2021-04-11 09:55] LABS: Potassium 3.6 mmoL/L (3.5-5.1)
[2021-04-11 09:57] LABS: Creatinine Clearance Estimated 69 mL/min (50-200); Estimated Glomerular Filt Rate 66 ml/min (>60); GFR (African American) 80 ML/MIN (>60)
[2021-04-11 10:07] VITALS: BP 114/62; PULSE 68; RESP 18; O2SAT 97
== END 2021-04-11 10:07 | disposition home or self-care (01) ==
PROVIDERS: PCP Internal Medicine Adolescent Medicine; Visit Provider Internal Medicine Nephrology
DX: E78.5 Hyperlipidemia, unspecified (principal)
CPT/HCPCS: 82565; 84132; 85014; 85018; 96372; J0885

== ENCOUNTER → 2021-04-11 15:55 | Outpatient (CLI) | payer MEDICARE, SELFPAY ==
[2021-04-11 16:09] LABS: Microscopic, Urine URINE MICROSCOPIC (MICROSCOPIC)
[2021-04-11 16:30] LABS: Appearance,Urine CLEAR (Clear); Bilirubin,Urine Negative (Negative); Blood, Urine Negative (Negative); Color,Urine DK YELLOW (Yellow); Glucose,Urine (UA) Negative (Negative); Ketones,Urine TRACE (Negative); Leukocyte Esterase,Urine Negative (Negative); Nitrate,Urine Negative (Negative); PH,Urine 5.5 (5.0-8.5); Protein,Urine 2+ (Negative); Specific Gravity, Urine >= 1.030 (1.005-1.030); Urobilinogen,Urine 0.2 EU/dl (0.2)
[2021-04-11 16:38] LABS: Basophils # 0.1 K/mm3 (0-0.2); Basophils % 0.8 % (0.1-2.0); Eosinophils # 0.4 K/mm3 (0.0-0.4); Eosinophils % 4.9 % (0.1-12.0); Lymphocytes # 1.3 K/mm3 (0.7-4.5); Mean Corpuscular HGB Conc 31.7 g/dL (31.8-35.4); Mean Corpuscular Hemoglobin 31.7 pg (27.0-31.2); Mean Platelet Volume 8.6 fl (7.4-10.4); Monocytes # 0.7 K/mm3 (0.1-1.0); Monocytes % 8.7 % (1.7-9.3); Neutrophils # 5.5 K/mm3 (1.8-7.8); Neutrophils % 69.6 % (37.0-80.0); Platelet Count 230 K/mm3 (142-424); Red Cell Distribution Width 13.6 % (11.5-17.5); White Blood Count 7.9 K/mm3 (4.8-10.8)
[2021-04-11 16:40] LABS: Creatinine,Urine Random 184 mg/dL (Not Estab.)
[2021-04-11 16:54] LABS: Chloride 102 mmol/L (98-107); Potassium 3.8 mmoL/L (3.5-5.1); Sodium 140 mmol/L (136-145)
[2021-04-11 16:57] LABS: Anion Gap 13.8 mEq/L (5-15); Blood Urea Nitrogen 17 mg/dl (9-20); Calcium 9.3 mg/dl (8.4-10.2); Carbon Dioxide 28 mmol/L (22.0-30.0); Estimated Glomerular Filt Rate 55 ml/min (>60); GFR (African American) 66 ML/MIN (>60); Glucose 113 mg/dl (74-100); Iron 68 ug/dL (49-181); Phosphorous 3.6 mg/dl (2.5-4.5)
[2021-04-11 16:58] LABS: Alanine Aminotransferase 12 U/L (12-78); Albumin Level 3.8 g/dl (3.5-5.0); Albumin/Globulin Ratio 1.5 (1.1-1.8); Alkaline Phosphatase 90 U/L (38-126); Anion Gap 11.6 mEq/L (5-15); Aspartate Amino Transferase 22 U/L (17-59); Bilirubin,Total 0.4 mg/dl (0.2-1.3); Blood Urea Nitrogen 17 mg/dl (9-20); Calcium 9.1 mg/dl (8.4-10.2); Carbon Dioxide 27 mmol/L (22.0-30.0); Chloride 103 mmol/L (98-107); Chol/HDL Ratio 2.6 (1-3.5); Cholesterol 120 mg/dl (140-200); Estimated Glomerular Filt Rate 55 ml/min (>60); GFR (African American) 66 ML/MIN (>60); Globulin 2.5 g/dL (1.3-3.2); Glucose 116 mg/dl (74-100); HDL Cholesterol 46 mg/dl (40-60); Potassium 3.6 mmoL/L (3.5-5.1); Sodium 138 mmol/L (136-145); Total Protein,Serum 6.3 g/dl (6.3-8.2); Triglycerides 105 mg/dl (30-150); VLDL Cholesterol 21 mg/dL (0-40)
[2021-04-11 17:01] LABS: Bacteria,Urine Trace /lpf; RBC,Urine Occasional #/hpf (0-3); Squamous Epithelial Cell,Urine Occasional #/hpf (0-5)
[2021-04-11 17:06] LABS: Total Iron Binding Capacity 276 ug/dL (261-462)
[2021-04-11 17:29] LABS: Prostate Specific Ag Screen 2.5 ng/ml (0.0-4.0)
[2021-04-11 17:33] LABS: Ferritin 162 ng/ml (17.9-464)
[2021-04-11 19:07] LABS: Hemoglobin 12.1 g/dL (14.1-18.0)
== END ==
PROVIDERS: Visit Provider Internal Medicine Adolescent Medicine
DX: I25.10 Atherosclerotic heart disease of native coronary artery without angina pectoris (principal); E11.9 Type 2 diabetes mellitus without complications; E78.5 Hyperlipidemia, unspecified; N40.1 Benign prostatic hyperplasia with lower urinary tract symptoms; D50.9 Iron deficiency anemia, unspecified; N18.31 Chronic kidney disease, stage 3a; Z79.84 Long term (current) use of oral hypoglycemic drugs; Z12.5 Encounter for screening for malignant neoplasm of prostate
CPT/HCPCS: 80053; 80061; 80069; 81001; 82565; 82570; 82728; 83036; 83540; 83550; 84132; 84155; 85014; 85018; 85025; 96372; G0103; J0885

== ENCOUNTER 2021-04-25 09:31 | Outpatient (CLI) | payer MEDICARE, SELFPAY ==
[2021-04-25 09:36] VITALS: BMI 20.1
[2021-04-25 09:47] LABS: Hematocrit 36.6 % (42.0-52.0); Hemoglobin 11.8 g/dL (14.1-18.0)
--- NOTE | 2021-04-25 09:58 | PC.NURSE ---
0958-pt here for lab check to see if pt needs procrit injection if hgb <11; today hgb 11.8
[2021-04-25 09:59] LABS: Creatinine Clearance Estimated 69 mL/min (50-200); Estimated Glomerular Filt Rate 66 ml/min (>60); GFR (African American) 80 ML/MIN (>60); Potassium 3.6 mmoL/L (3.5-5.1)
[2021-04-25 10:08] LABS: Iron 51 ug/dL (49-181)
[2021-04-25 10:17] LABS: Total Iron Binding Capacity 255 ug/dL (261-462)
[2021-04-25 10:45] LABS: Ferritin 121 ng/ml (17.9-464)
== END 2021-04-25 09:58 | disposition home or self-care (01) ==
LOC: INF 09:32
PROVIDERS: PCP Internal Medicine Adolescent Medicine; Visit Provider Internal Medicine Nephrology
DX: N18.4 Chronic kidney disease, stage 4 (severe) (principal)
CPT/HCPCS: 82565; 82728; 83540; 83550; 84132; 85014; 85018

== ENCOUNTER 2021-04-28 15:00 | Emergency (ER) | payer MEDICARE, SELFPAY ==
[2021-04-28 15:01] VITALS: BP 177/90; PULSE 74; RESP 16; TEMP 36.6; O2SAT 98; BMI 20.7
--- NOTE | 2021-04-28 15:30 | HMH.EDWNDL ---
ED Disposition Clinical Impression: Laceration of left thumb Qualifiers: Encounter type: initial encounter Damage to nail status: without damage Foreign body presence: without foreign body Qualified Code(s): S61.012A - Laceration without foreign body of left thumb without damage to nail, initial encounter Disposition: Home, Self-Care Condition on Discharge: Good Instructions: DI for Laceration Repair Referrals: Abel Basilio MD [Primary Care Provider] - - Critical Care Critical Care Time: No Attestation: On 04/28/21, the high probability of a clinically significant, sudden or life threatening deterioration of the following system(s) required my full and direct attention, intervention and personal management. The time I documented below is in addition to time spent performing reported procedures but includes the following listed in this critical care notation. Medical Decision Making - Medical Records Medical records reviewed: Yes: I reviewed the patient's medical records. - [place] Inquiry Pt receiving controlled substance: No Vital Signs: 04/28/21 15:01 Temperature 98 F Temperature Source Oral Pulse Rate [Radial] 74 Respiratory Rate 16 Blood Pressure [Right Arm] 177/90 H Blood Pressure Mean [Right Arm] 119 Blood Pressure Position [Right Arm] Sitting 02 Sat by Pulse Oximetry 98 Oxygen Delivery Method Room Air Orders (Tests/Meds): ED MEDICATIONS Discontinued Medications Generic Name Dose Route Start Last Admin Trade Name Freq PRN Reason Stop Dose Admin Tetanus/Reduced Diphtheria/Acell Pertussis 0.5 ml 04/28/21 15:13 Tet/Diphth/Pert-Adult 0.5ml Syringe IM 04/28/21 15:14 .ONCE ONE - Reevaluation(s) Time: 15:44 Reevaluation #1: Patient tolerated procedure well. He is to keep the bandage on for 24 hours. Follow with PCP for reevaluation as well as suture removal. Given strict return precautions. Verbalized understanding. Medical Decision Narrative: 70-year-old male presented to the emergency department with laceration to left thumb. Patient does have some oozing bleeding secondary to antiplatelets. Tetanus will be updated. Patient will require suture repair. Wound/Laceration HPI - General Chief Complaint: Wound/Laceration Stated Complaint: AO 04/28@1445 lac to L hand Time Seen by Provider: 04/28/21 15:10 Mode of Arrival: Ambulatory Limitations: No Limitations Description of Symptoms (Recalled from ER Triage Doc. by RN): TO ED PER PVT CAR WITH C/O LACERATION TO LT THUMB WITH A KNIFE TODAY. - History of Present Illness HPI narrative: Is a 70-year-old male presented to the emergency department with a laceration to his left thumb. The patient dates that he was talking on the phone pain attention while he was using a knife. He slipped and he cut his left thumb. He is having some bleeding and pain at the site. Patient does take aspirin and Plavix. Denies any other injuries. Patient is not up-to-date on tetanus immunization. Denies any headache or change in vision. No focal weakness. No chest pain shortness of breath abdominal pain or vomiting. - Related Data Home Medications Medication Instructions Recorded Confirmed metformin 1,000 mg tablet 1,000 mg PO DAILY 07/23/17 04/05/21 multivit with min-folic 1 tab PO DAILY 07/23/17 04/05/21 acid-lutein 400 mcg-250 mcg chewable tablet omeprazole 20 mg capsule,delayed 20 mg PO BID 07/23/17 04/05/21 release tamsulosin 0.4 mg capsule 0.4 mg PO QDAY 07/23/17 04/05/21 vitamin E (dl, acetate) 180 mg 800 unit PO QDAY 07/23/17 04/05/21 (400 unit) capsule hydralazine 50 mg tablet 100 mg PO TID tab 12/12/17 04/05/21 Aspirin [Aspir 81] 81 mg PO DAILY 08/12/19 04/05/21 atorvastatin 80 mg tablet 80 mg PO HS tab 09/10/19 04/05/21 chlorthalidone 25 mg tablet 25 mg PO DAILY tab 09/10/19 04/05/21 clopidogrel 75 mg tablet 75 mg PO DAILY tab 09/10/19 04/05/21 nitroglycerin 0.4 mg sublingual 0.4 mg SUBLINGUAL NEEDED
[2021-04-28 16:04] VITALS: BP 174/92; PULSE 78; RESP 18; TEMP 36.6; O2SAT 98
== END 2021-04-28 16:06 | disposition home or self-care (01) ==
PROVIDERS: Emergency Provider Emergency Medicine; PCP Internal Medicine Adolescent Medicine
DX: S61.012A Laceration without foreign body of left thumb without damage to nail, initial encounter (principal); Z23 Encounter for immunization; Z79.82 Long term (current) use of aspirin; Z79.84 Long term (current) use of oral hypoglycemic drugs; Z79.899 Other long term (current) drug therapy; I25.10 Atherosclerotic heart disease of native coronary artery without angina pectoris; E11.9 Type 2 diabetes mellitus without complications; K21.9 Gastro-esophageal reflux disease without esophagitis; E78.5 Hyperlipidemia, unspecified; I10 Essential (primary) hypertension; I25.2 Old myocardial infarction; I73.9 Peripheral vascular disease, unspecified
CPT/HCPCS: 12002; 90715; 99282

== ENCOUNTER → 2021-04-29 12:33 | Outpatient (CLI) | payer MEDICARE, SELFPAY ==
[2021-04-29 12:51] LABS: Basophils # 0.1 K/mm3 (0-0.2); Basophils % 0.8 % (0.1-2.0); Eosinophils # 0.3 K/mm3 (0.0-0.4); Eosinophils % 3.3 % (0.1-12.0); Hematocrit 38.1 % (42.0-52.0); Hemoglobin 12.1 g/dL (14.1-18.0); Mean Corpuscular HGB Conc 31.9 g/dL (31.8-35.4); Mean Corpuscular Hemoglobin 31.5 pg (27.0-31.2); Mean Corpuscular Volume 98.7 fl (80-94); Mean Platelet Volume 8.8 fl (7.4-10.4); Monocytes # 0.6 K/mm3 (0.1-1.0); Monocytes % 6.3 % (1.7-9.3); Neutrophils % 78.7 % (37.0-80.0); Platelet Count 248 K/mm3 (142-424); Red Blood Count 3.86 M/mm3 (4.60-6.20); Red Cell Distribution Width 13.4 % (11.5-17.5); White Blood Count 8.9 K/mm3 (4.8-10.8)
[2021-04-29 13:32] LABS: Alanine Aminotransferase 13 U/L (12-78); Albumin Level 3.6 g/dl (3.5-5.0); Albumin/Globulin Ratio 1.3 (1.1-1.8); Alkaline Phosphatase 112 U/L (38-126); Anion Gap 12.1 mEq/L (5-15); Aspartate Amino Transferase 23 U/L (17-59); Bilirubin,Total 0.3 mg/dl (0.2-1.3); Blood Urea Nitrogen 17 mg/dl (9-20); Calcium 9.1 mg/dl (8.4-10.2); Carbon Dioxide 27 mmol/L (22.0-30.0); Chloride 104 mmol/L (98-107); Estimated Glomerular Filt Rate 66 ml/min (>60); GFR (African American) 80 ML/MIN (>60); Globulin 2.7 g/dL (1.3-3.2); Glucose 231 mg/dl (74-100); Potassium 4.1 mmoL/L (3.5-5.1); Sodium 139 mmol/L (136-145); Total Protein,Serum 6.3 g/dl (6.3-8.2)
[2021-04-29 14:47] LABS: Ferritin 128 ng/ml (17.9-464)
[2021-05-01 11:17] LABS: Hemoglobin A1C 8.8 % (4.0-6.0)
== END ==
PROVIDERS: Visit Provider Internal Medicine Adolescent Medicine
DX: D50.9 Iron deficiency anemia, unspecified (principal); R73.09 Other abnormal glucose
CPT/HCPCS: 36415; 80053; 82728; 83036; 85025

== ENCOUNTER 2021-05-23 09:01 | Outpatient (CLI) | payer MEDICARE, SELFPAY ==
[2021-05-23 09:05] VITALS: BMI 20.1
[2021-05-23 09:30] LABS: Hematocrit 35.2 % (42.0-52.0); Hemoglobin 11.3 g/dL (14.1-18.0)
--- NOTE | 2021-05-23 09:53 | PC.NURSE ---
05/23/21 0910-Sheela Corrigan RN at pt chairside to draw blood for labs via venipuncture to lt ac using butterfly needle. specimen obtained and sent to lab for analysis. pt to await results of h/h to determine need for procrit and return appt.
[2021-05-23 09:55] LABS: Potassium 4.1 mmoL/L (3.5-5.1)
[2021-05-23 09:58] LABS: Creatinine Clearance Estimated 51 mL/min (50-200); Estimated Glomerular Filt Rate 46 ml/min (>60); GFR (African American) 56 ML/MIN (>60); Iron 73 ug/dL (49-181)
[2021-05-23 10:07] LABS: Hemoglobin A1C 6.4 % (4.0-6.0); Total Iron Binding Capacity 285 ug/dL (261-462)
[2021-05-23 10:35] LABS: Ferritin 205 ng/ml (17.9-464)
== END 2021-05-23 09:40 | disposition home or self-care (01) ==
LOC: INF 09:02
PROVIDERS: PCP Internal Medicine Adolescent Medicine; Visit Provider Internal Medicine Nephrology
DX: N18.4 Chronic kidney disease, stage 4 (severe) (principal); E11.9 Type 2 diabetes mellitus without complications; D63.1 Anemia in chronic kidney disease; Z79.84 Long term (current) use of oral hypoglycemic drugs
CPT/HCPCS: 82565; 82728; 83036; 83540; 83550; 84132; 85014; 85018

== ENCOUNTER 2021-06-20 09:32 | Outpatient (CLI) | payer MEDICARE, SELFPAY ==
[2021-06-20 09:38] VITALS: BMI 20.1
[2021-06-20 10:01] LABS: Hematocrit 30.6 % (42.0-52.0); Hemoglobin 10.3 g/dL (14.1-18.0)
[2021-06-20 10:11] LABS: Creatinine Clearance Estimated 45 mL/min (50-200); Estimated Glomerular Filt Rate 40 ml/min (>60); GFR (African American) 49 ML/MIN (>60); Iron 73 ug/dL (49-181); Potassium 3.7 mmoL/L (3.5-5.1)
[2021-06-20 10:20] LABS: Total Iron Binding Capacity 249 ug/dL (261-462)
[2021-06-20 10:38] VITALS: BP 129/70; PULSE 71; RESP 18; TEMP 36.6; O2SAT 96
[2021-06-20 10:49] LABS: Ferritin 144 ng/ml (17.9-464)
== END 2021-06-20 10:38 | disposition home or self-care (01) ==
LOC: INF 09:33
PROVIDERS: PCP Internal Medicine Adolescent Medicine; Visit Provider Internal Medicine Nephrology
DX: N18.4 Chronic kidney disease, stage 4 (severe) (principal); D63.1 Anemia in chronic kidney disease
CPT/HCPCS: 82565; 82728; 83540; 83550; 84132; 85014; 85018; 96372; J0885

== ENCOUNTER 2021-07-04 08:39 | Outpatient (CLI) | payer MEDICARE, SELFPAY ==
[2021-07-04 08:49] VITALS: BMI 20.1
[2021-07-04 09:09] LABS: Hematocrit 32.2 % (42.0-52.0)
[2021-07-04 09:19] LABS: Potassium 3.9 mmoL/L (3.5-5.1)
[2021-07-04 09:22] LABS: Creatinine Clearance Estimated 51 mL/min (50-200); Estimated Glomerular Filt Rate 46 ml/min (>60); GFR (African American) 56 ML/MIN (>60)
--- NOTE | 2021-07-04 09:30 | PC.NURSE ---
NO INJECTION NEEDED DUE TO HGB BEING 11
[2021-07-04 09:35] VITALS: BP 128/74; PULSE 68; RESP 20; TEMP 36.9; O2SAT 95
--- NOTE | 2021-07-04 12:39 | PC.NURSE ---
PT ARRIVED AT 0845; LABS WERE DRAWN AND BASED ON ORDER PT DID NOT HAVE TO GET INJECTION TODAY; PT WILL RETURN NACK I
== END 2021-07-04 08:45 | disposition home or self-care (01) ==
LOC: INF 08:40
PROVIDERS: PCP Internal Medicine Adolescent Medicine; Visit Provider Internal Medicine Nephrology
DX: N18.4 Chronic kidney disease, stage 4 (severe) (principal); D63.1 Anemia in chronic kidney disease
CPT/HCPCS: 82565; 84132; 85014; 85018

== ENCOUNTER 2021-08-08 09:36 | Outpatient (CLI) | payer MEDICARE, SELFPAY ==
[2021-08-08 09:44] VITALS: BMI 20.1
[2021-08-08 10:13] LABS: Hematocrit 33.5 % (42.0-52.0); Hemoglobin 10.7 g/dL (14.1-18.0)
[2021-08-08 10:23] LABS: Creatinine Clearance Estimated 44 mL/min (50-200); Estimated Glomerular Filt Rate 40 ml/min (>60); GFR (African American) 48 ML/MIN (>60)
[2021-08-08 10:40] LABS: Potassium 4.1 mmoL/L (3.5-5.1)
[2021-08-08 10:43] LABS: Iron 85 ug/dL (49-181)
[2021-08-08 10:49] VITALS: BP 129/67; PULSE 73; RESP 20; TEMP 36.7; O2SAT 100
[2021-08-08 10:53] LABS: Total Iron Binding Capacity 265 ug/dL (261-462)
[2021-08-08 10:59] LABS: Ferritin 161 ng/ml (17.9-464)
== END 2021-08-08 10:58 | disposition home or self-care (01) ==
LOC: INF 09:38
PROVIDERS: PCP Internal Medicine Adolescent Medicine; Visit Provider Internal Medicine Nephrology
DX: N18.4 Chronic kidney disease, stage 4 (severe) (principal); D63.1 Anemia in chronic kidney disease
CPT/HCPCS: 82565; 82728; 83540; 83550; 84132; 85014; 85018; 96372; J0885

== ENCOUNTER 2021-08-22 09:29 | Outpatient (CLI) | payer MEDICARE, SELFPAY ==
[2021-08-22 09:29] VITALS: BMI 20.1
[2021-08-22 09:45] VITALS: BP 122/74; PULSE 68; RESP 20; TEMP 36.9; O2SAT 95
--- NOTE | 2021-08-22 09:45 | PC.NURSE ---
PT GOT LABS ; BASED ON ORDER AND LAB RESULTS NO INJECTION GIVEN
[2021-08-22 09:46] LABS: Hematocrit 35.3 % (42.0-52.0); Hemoglobin 11.2 g/dL (14.1-18.0)
[2021-08-22 10:06] LABS: Potassium 4.3 mmoL/L (3.5-5.1)
[2021-08-22 10:09] LABS: Creatinine Clearance Estimated 47 mL/min (50-200); Estimated Glomerular Filt Rate 43 ml/min (>60); GFR (African American) 52 ML/MIN (>60)
== END 2021-08-22 09:45 | disposition home or self-care (01) ==
LOC: INF 09:30
PROVIDERS: PCP Internal Medicine Adolescent Medicine; Visit Provider Internal Medicine Nephrology
DX: N18.4 Chronic kidney disease, stage 4 (severe) (principal); D63.1 Anemia in chronic kidney disease
CPT/HCPCS: 82565; 84132; 85014; 85018

== ENCOUNTER → 2021-08-28 09:42 | Outpatient (CLI) | payer MEDICARE, SELFPAY ==
[2021-08-28 13:30] LABS: Iron 77 ug/dL (49-181)
[2021-08-28 13:39] LABS: Total Iron Binding Capacity 289 ug/dL (261-462)
[2021-08-28 14:06] LABS: Ferritin 116 ng/ml (17.9-464)
== END ==
PROVIDERS: PCP Internal Medicine Adolescent Medicine; Visit Provider Internal Medicine Nephrology
DX: N18.4 Chronic kidney disease, stage 4 (severe) (principal); D63.1 Anemia in chronic kidney disease
CPT/HCPCS: 36415; 82728; 83540; 83550

== ENCOUNTER 2021-10-04 09:02 | Outpatient (CLI) | payer MEDICARE, SELFPAY ==
[2021-10-04 09:08] VITALS: BMI 20.1
[2021-10-04 09:40] LABS: Hematocrit 34.4 % (42.0-52.0)
--- NOTE | 2021-10-04 09:46 | PC.NURSE ---
10/04/21 0920 pt accessed per venipuncture to lt ac using butterfly needle, blood obtained for labs as ordered per md. Will await results to determine poc.
[2021-10-04 09:57] LABS: Creatinine Clearance Estimated 42 mL/min (50-200); Estimated Glomerular Filt Rate 37 ml/min (>60); GFR (African American) 45 ML/MIN (>60); Iron 75 ug/dL (49-181)
[2021-10-04 10:06] LABS: Total Iron Binding Capacity 287 ug/dL (261-462)
[2021-10-04 10:16] VITALS: BP 120/61; PULSE 74; RESP 18; TEMP 36.4; O2SAT 98
[2021-10-04 10:33] LABS: Ferritin 156 ng/ml (17.9-464)
== END 2021-10-04 10:16 | disposition home or self-care (01) ==
LOC: INF 09:04
PROVIDERS: PCP Internal Medicine Adolescent Medicine; Visit Provider Internal Medicine Nephrology
DX: D63.1 Anemia in chronic kidney disease (principal); N18.4 Chronic kidney disease, stage 4 (severe)
CPT/HCPCS: 82565; 82728; 83540; 83550; 84132; 85014; 85018

== ENCOUNTER 2021-11-01 09:18 | Outpatient (CLI) | payer MEDICARE, SELFPAY ==
[2021-11-01 09:23] VITALS: BMI 20.1
[2021-11-01 09:44] LABS: Hematocrit 30.2 % (42.0-52.0); Hemoglobin 9.3 g/dL (14.1-18.0)
[2021-11-01 09:48] LABS: Potassium 4.3 mmoL/L (3.5-5.1)
[2021-11-01 09:51] LABS: Creatinine Clearance Estimated 42 mL/min (50-200); Estimated Glomerular Filt Rate 37 ml/min (>60); GFR (African American) 45 ML/MIN (>60); Iron 71 ug/dL (49-181)
[2021-11-01 10:01] LABS: Total Iron Binding Capacity 283 ug/dL (261-462)
[2021-11-01 10:15] VITALS: BP 115/65; PULSE 67; RESP 18; TEMP 36.6; O2SAT 100
[2021-11-01 10:26] LABS: Ferritin 131 ng/ml (17.9-464)
== END 2021-11-01 10:15 | disposition home or self-care (01) ==
LOC: INF 09:19
PROVIDERS: PCP Internal Medicine Adolescent Medicine; Visit Provider Internal Medicine Nephrology
DX: N18.4 Chronic kidney disease, stage 4 (severe) (principal); D63.1 Anemia in chronic kidney disease
CPT/HCPCS: 82565; 82728; 83540; 83550; 84132; 85014; 85018; 96372; J0885

== ENCOUNTER 2021-11-15 09:37 | Outpatient (CLI) | payer MEDICARE, SELFPAY ==
[2021-11-15 09:40] VITALS: BMI 20.1
[2021-11-15 09:58] LABS: Hematocrit 33.5 % (42.0-52.0); Hemoglobin 11.1 g/dL (14.1-18.0)
[2021-11-15 10:03] LABS: Creatinine Clearance Estimated 44 mL/min (50-200); Estimated Glomerular Filt Rate 40 ml/min (>60); GFR (African American) 48 ML/MIN (>60)
--- NOTE | 2021-11-15 10:15 | PC.NURSE ---
1015-pt here for lab draw for possible procrit injection if hgb <11; hgb 11.1 today pt will return in a month for lab redraw.
== END 2021-11-15 10:15 | disposition home or self-care (01) ==
LOC: INF 09:38
PROVIDERS: PCP Internal Medicine Adolescent Medicine; Visit Provider Internal Medicine Nephrology
DX: N18.30 Chronic kidney disease, stage 3 unspecified (principal); D63.1 Anemia in chronic kidney disease
CPT/HCPCS: 82565; 84132; 85014; 85018

== ENCOUNTER 2021-12-13 09:50 | Outpatient (CLI) | payer MEDICARE, SELFPAY ==
[2021-12-13 09:51] VITALS: BMI 20.1
--- NOTE | 2021-12-13 09:57 | PC.NURSE ---
0957-collected labs via peripheral stick; pt may need procrit if hbg< 11
[2021-12-13 10:13] LABS: Hematocrit 34.3 % (42.0-52.0); Hemoglobin 11.4 g/dL (14.1-18.0)
[2021-12-13 10:14] LABS: Potassium 3.8 mmoL/L (3.5-5.1)
[2021-12-13 10:17] LABS: Creatinine Clearance Estimated 44 mL/min (50-200); Estimated Glomerular Filt Rate 40 ml/min (>60); GFR (African American) 48 ML/MIN (>60); Iron 77 ug/dL (49-181)
--- NOTE | 2021-12-13 10:20 | PC.NURSE ---
1020-pt d/c home hgb 11.4, pt did not need procrit today; pt to return in one month for repeat lab draw.
[2021-12-13 10:26] LABS: Total Iron Binding Capacity 265 ug/dL (261-462)
[2021-12-13 10:55] LABS: Ferritin 131 ng/ml (17.9-464)
== END 2021-12-13 10:20 | disposition home or self-care (01) ==
LOC: INF 09:51
PROVIDERS: PCP Internal Medicine Adolescent Medicine; Visit Provider Internal Medicine Nephrology
DX: D63.1 Anemia in chronic kidney disease (principal); N18.30 Chronic kidney disease, stage 3 unspecified
CPT/HCPCS: 36415; 82565; 82728; 83540; 83550; 84132; 85014; 85018

== ENCOUNTER → 2021-12-25 10:47 | Outpatient (CLI) | payer MEDICARE, SELFPAY ==
[2021-12-25 11:22] LABS: Basophils % 0.5 % (0.1-2.0); Eosinophils # 0.3 K/mm3 (0.0-0.4); Hematocrit 33.4 % (42.0-52.0); Hemoglobin 11.4 g/dL (14.1-18.0); Lymphocytes % 14.6 % (10-50); Mean Corpuscular HGB Conc 34.2 g/dL (31.8-35.4); Mean Corpuscular Hemoglobin 31.7 pg (27.0-31.2); Mean Corpuscular Volume 92.7 fl (80-94); Mean Platelet Volume 8.2 fl (7.4-10.4); Monocytes # 0.5 K/mm3 (0.1-1.0); Monocytes % 6.9 % (1.7-9.3); Platelet Count 228 K/mm3 (142-424); Red Cell Distribution Width 12.9 % (11.5-17.5); White Blood Count 6.8 K/mm3 (4.8-10.8)
[2021-12-25 11:34] LABS: Creatinine,Urine Random 76 mg/dL (Not Estab.)
[2021-12-25 12:17] LABS: Albumin Level 3.8 g/dl (3.5-5.0); Blood Urea Nitrogen 27 mg/dl (9-20); Calcium 9.1 mg/dl (8.4-10.2); Carbon Dioxide 26 mmol/L (22.0-30.0); Chloride 102 mmol/L (98-107); Estimated Glomerular Filt Rate 46 ml/min (>60); GFR (African American) 56 ML/MIN (>60); Glucose 142 mg/dl (74-100); Phosphorous 4.2 mg/dl (2.5-4.5); Sodium 138 mmol/L (136-145)
[2021-12-25 12:28] LABS: Intact Parathyroid Hormone 71.6 pg/mL (7.5-53.5)
[2021-12-25 12:34] LABS: 25-OH Vitamin D, Total 68.7 ng/mL (30-100)
== END ==
PROVIDERS: PCP Internal Medicine Adolescent Medicine; Visit Provider Internal Medicine Nephrology
DX: N18.31 Chronic kidney disease, stage 3a (principal); E55.9 Vitamin D deficiency, unspecified
CPT/HCPCS: 36415; 80069; 82306; 82570; 83970; 84155; 85025

== ENCOUNTER 2022-01-10 09:22 | Outpatient (CLI) | payer MEDICARE, SELFPAY ==
[2022-01-10 09:26] VITALS: BMI 20.1
--- NOTE | 2022-01-10 09:33 | PC.NURSE ---
0933-collected monthly labs via peripheral stick; will wait for labs.
[2022-01-10 10:00] LABS: Hematocrit 31.7 % (42.0-52.0)
--- NOTE | 2022-01-10 10:10 | PC.NURSE ---
1010-pt ok to d/c home; hgb 11, pt doesn't need procrit today and will return in one month.
[2022-01-10 10:11] LABS: Potassium 4.2 mmoL/L (3.5-5.1)
[2022-01-10 10:13] LABS: Creatinine Clearance Estimated 47 mL/min (50-200); Estimated Glomerular Filt Rate 43 ml/min (>60); GFR (African American) 52 ML/MIN (>60)
[2022-01-10 10:14] LABS: Iron 53 ug/dL (49-181)
[2022-01-10 10:23] LABS: Total Iron Binding Capacity 266 ug/dL (261-462)
[2022-01-10 10:48] LABS: Ferritin 99.4 ng/ml (17.9-464)
== END 2022-01-10 10:10 | disposition home or self-care (01) ==
LOC: INF 09:23
PROVIDERS: PCP Internal Medicine Adolescent Medicine; Visit Provider Internal Medicine Nephrology
DX: N18.30 Chronic kidney disease, stage 3 unspecified (principal); D63.1 Anemia in chronic kidney disease
CPT/HCPCS: 36415; 82565; 82728; 83540; 83550; 84132; 85014; 85018

== ENCOUNTER 2022-02-02 09:20 | Outpatient (CLI) | payer MEDICARE, SELFPAY ==
[2022-02-02 09:26] VITALS: BMI 20.1
[2022-02-02 09:46] LABS: Hematocrit 30.9 % (42.0-52.0); Hemoglobin 10.5 g/dL (14.1-18.0)
[2022-02-02 09:59] LABS: Potassium 4.1 mmoL/L (3.5-5.1)
[2022-02-02 10:02] LABS: Creatinine Clearance Estimated 47 mL/min (50-200); Estimated Glomerular Filt Rate 43 ml/min (>60); GFR (African American) 52 ML/MIN (>60); Iron 55 ug/dL (49-181)
[2022-02-02 10:11] LABS: Total Iron Binding Capacity 269 ug/dL (261-462)
[2022-02-02 10:20] VITALS: BP 125/68; PULSE 60; RESP 18; O2SAT 99
[2022-02-02 10:39] LABS: Ferritin 107 ng/ml (17.9-464)
== END 2022-02-02 10:20 | disposition home or self-care (01) ==
LOC: INF 09:22
PROVIDERS: PCP Internal Medicine Adolescent Medicine; Visit Provider Internal Medicine Nephrology
DX: N18.30 Chronic kidney disease, stage 3 unspecified (principal); D63.1 Anemia in chronic kidney disease
CPT/HCPCS: 82565; 82728; 83540; 83550; 84132; 85014; 85018; 96372; J0885

== ENCOUNTER 2022-02-14 09:18 | Outpatient (CLI) | payer MEDICARE, SELFPAY ==
[2022-02-14 09:20] VITALS: BMI 20.1
[2022-02-14 09:35] LABS: Hematocrit 32.2 % (42.0-52.0); Hemoglobin 10.4 g/dL (14.1-18.0)
[2022-02-14 09:42] LABS: Potassium 4.1 mmoL/L (3.5-5.1)
[2022-02-14 09:45] LABS: Creatinine Clearance Estimated 54 mL/min (50-200); Estimated Glomerular Filt Rate 50 ml/min (>60); GFR (African American) 61 ML/MIN (>60)
[2022-02-14 10:04] VITALS: BP 119/52; PULSE 68; RESP 18; O2SAT 98
== END 2022-02-14 10:04 | disposition home or self-care (01) ==
LOC: INF 09:19
PROVIDERS: PCP Internal Medicine Adolescent Medicine; Visit Provider Internal Medicine Nephrology
DX: N18.30 Chronic kidney disease, stage 3 unspecified (principal); D63.1 Anemia in chronic kidney disease
CPT/HCPCS: 82565; 84132; 85014; 85018; 96372; J0885

== ENCOUNTER 2022-02-27 09:38 | Outpatient (CLI) | payer MEDICARE, SELFPAY ==
[2022-02-27 09:38] VITALS: BMI 20.1
[2022-02-27 10:13] LABS: Hemoglobin 11.3 g/dL (14.1-18.0)
[2022-02-27 10:15] LABS: Creatinine Clearance Estimated 50 mL/min (50-200); Estimated Glomerular Filt Rate 46 ml/min (>60); GFR (African American) 56 ML/MIN (>60)
[2022-02-27 10:25] VITALS: BP 122/74; PULSE 68; RESP 20; TEMP 36.9; O2SAT 95
--- NOTE | 2022-02-27 10:41 | PC.NURSE ---
LABS CHECKED TODAY AND BASED ON PARAMETERS PT DID NOT NEED THE MEDICATION TODAY AND WILL RETURN TO CLINIC IN ONE MONTH
[2022-02-27 10:47] LABS: Iron 52 ug/dL (49-181)
[2022-02-27 10:51] LABS: Ferritin 64.4 ng/ml (17.9-464)
[2022-02-27 10:59] LABS: Total Iron Binding Capacity 269 ug/dL (261-462)
== END 2022-02-27 10:35 | disposition home or self-care (01) ==
LOC: INF 09:40
PROVIDERS: PCP Internal Medicine Adolescent Medicine; Visit Provider Internal Medicine Nephrology
DX: N18.30 Chronic kidney disease, stage 3 unspecified (principal); D63.1 Anemia in chronic kidney disease
CPT/HCPCS: 36415; 82565; 82728; 83540; 83550; 84132; 85014; 85018

== ENCOUNTER → 2022-03-07 16:13 | Outpatient (CLI) | payer MEDICARE, SELFPAY ==
--- NOTE | 2022-03-07 16:19 | XR_ITS ---
FINAL REPORT CLINICAL HISTORY: right arm pain, bursitis FINDINGS: RIGHT FOREARM Two views of the right forearm were obtained. There is no acute fracture or dislocation. There is prominent soft tissue swelling posterior to the olecranon measuring approximately 2.0 cm in depth and is probably related to olecranon bursitis. There is mild vascular calcification. There is osteopenia of the radius and ulna. IMPRESSION: Prominent soft tissue swelling posterior to the olecranon, probably related to olecranon bursitis. Osteopenia the radius and ulna. Reviewed, Interpreted and Dictated by Jovany Paez MD Transcribed by Bettye Knowles Authenticated and [facility]
== END ==
PROVIDERS: PCP Internal Medicine Adolescent Medicine; Visit Provider Orthopaedic Surgery
DX: M79.601 Pain in right arm (principal)
CPT/HCPCS: 73090

== ENCOUNTER → 2022-03-20 08:45 | Outpatient (CLI) | payer MEDICARE, SELFPAY ==
[2022-03-20 09:20] LABS: Hemoglobin 10.5 g/dL (14.1-18.0); Potassium 4.2 mmoL/L (3.5-5.1)
[2022-03-20 09:23] LABS: Creatinine Clearance Estimated 44 mL/min (50-200); Estimated Glomerular Filt Rate 43 ml/min (>60); GFR (African American) 52 ML/MIN (>60)
[2022-03-20 09:30] VITALS: BP 165/81; PULSE 61; RESP 16; TEMP 36.6; O2SAT 98
[2022-03-20 09:39] LABS: Iron 69 ug/dL (49-181)
[2022-03-20 09:48] LABS: Total Iron Binding Capacity 258 ug/dL (261-462)
[2022-03-20 09:59] VITALS: BP 165/81; PULSE 61; RESP 16; TEMP 36.6; O2SAT 98
[2022-03-20 10:16] LABS: Ferritin 101 ng/ml (17.9-464)
== END ==
PROVIDERS: PCP Internal Medicine Adolescent Medicine; Visit Provider Internal Medicine Nephrology
DX: N18.4 Chronic kidney disease, stage 4 (severe) (principal); D63.1 Anemia in chronic kidney disease
CPT/HCPCS: 82565; 82728; 83540; 83550; 84132; 85014; 85018; 96372; J0885

== ENCOUNTER → 2022-04-02 11:32 | Outpatient (CLI) | payer MEDICARE, SELFPAY ==
--- NOTE | 2022-04-02 11:33 | ECG_ITS ---
APPROVED REPORT Exam: Resting ECG HR:60 bpm ECG Measurements Heart Rate 60 AXES ND 175 P 176 QRSd 191 QRS -47 QT 478 T 134 QTc 478 Conclusion ELECTRONIC ATRIAL PACEMAKER ELECTRONIC VENTRICULAR PACEMAKER ABNORMAL RHYTHM ECG UNCONFIRMED REPORT Electronically signed by : Abel Basilio MD 04/02/2022 15:12:14
[2022-04-02 11:51] LABS: Microscopic, Urine URINE MICROSCOPIC (MICROSCOPIC)
--- NOTE | 2022-04-02 12:01 | XR_ITS ---
FINAL REPORT TECHNIQUE: Chest PA & Lateral CLINICAL HISTORY: pre op; SOB COMPARISON: August 11, 2019 FINDINGS: TWO-VIEW CHEST 2 views of the chest were performed. There are postoperative changes from median sternotomy. A left subclavian pacemaker is present. There is mild cardiomegaly. The mediastinum is within normal limits. There is no acute cardiopulmonary process. There are no pleural effusions. There is no pneumothorax. The bony thorax appears intact. IMPRESSION: No acute cardiopulmonary process. Reviewed, Interpreted and Dictated by Jovany Paez MD Transcribed by Cary Washington Authenticated and [facility]
[2022-04-02 12:21] LABS: Basophils # 0.1 K/mm3 (0-0.2); Basophils % 0.6 % (0.1-2.0); Eosinophils # 0.3 K/mm3 (0.0-0.4); Eosinophils % 4.6 % (0.1-12.0); Hematocrit 37.1 % (42.0-52.0); Lymphocytes # 1.3 K/mm3 (0.7-4.5); Lymphocytes % 16.9 % (10-50); Mean Corpuscular HGB Conc 32.3 g/dL (31.8-35.4); Mean Corpuscular Hemoglobin 31.4 pg (27.0-31.2); Mean Platelet Volume 8.5 fl (7.4-10.4); Monocytes # 0.6 K/mm3 (0.1-1.0); Monocytes % 7.9 % (1.7-9.3); Neutrophils # 5.3 K/mm3 (1.8-7.8); Platelet Count 214 K/mm3 (142-424); Red Blood Count 3.82 M/mm3 (4.60-6.20); Red Cell Distribution Width 13.8 % (11.5-17.5); White Blood Count 7.5 K/mm3 (4.8-10.8)
[2022-04-02 12:26] LABS: Appearance,Urine CLEAR (Clear); Bilirubin,Urine Negative (Negative); Blood, Urine Negative (Negative); Color,Urine YELLOW (Yellow); Glucose,Urine (UA) Negative (Negative); Ketones,Urine Negative (Negative); Leukocyte Esterase,Urine Negative (Negative); Nitrate,Urine Negative (Negative); PH,Urine 6.5 (5.0-8.5); Protein,Urine Negative (Negative); Urobilinogen,Urine 0.2 EU/dl (0.2)
[2022-04-02 13:14] LABS: Bacteria,Urine Trace /lpf
[2022-04-02 13:38] LABS: Alanine Aminotransferase 15 U/L (12-78); Albumin Level 4.1 g/dl (3.5-5.0); Albumin/Globulin Ratio 1.6 (1.1-1.8); Alkaline Phosphatase 123 U/L (38-126); Anion Gap 15.3 mEq/L (5-15); Aspartate Amino Transferase 23 U/L (17-59); Bilirubin,Total 0.3 mg/dl (0.2-1.3); Blood Urea Nitrogen 24 mg/dl (9-20); Carbon Dioxide 28 mmol/L (22.0-30.0); Chloride 101 mmol/L (98-107); Estimated Glomerular Filt Rate 46 ml/min (>60); GFR (African American) 56 ML/MIN (>60); Globulin 2.5 g/dL (1.3-3.2); Glucose 129 mg/dl (74-100); Potassium 4.3 mmoL/L (3.5-5.1); Sodium 140 mmol/L (136-145); Total Protein,Serum 6.6 g/dl (6.3-8.2)
== END ==
PROVIDERS: PCP Internal Medicine Adolescent Medicine; Visit Provider Orthopaedic Surgery
DX: Z01.818 Encounter for other preprocedural examination (principal); Z20.822 Contact with and (suspected) exposure to COVID-19; M70.21 Olecranon bursitis, right elbow
CPT/HCPCS: 36415; 71046; 80053; 81001; 85025; 93005; C9803; U0003; U0005

== ENCOUNTER 2022-04-03 09:13 | Outpatient (CLI) | payer MEDICARE, SELFPAY ==
--- NOTE | 2022-04-03 09:25 | INFXCTL.NOTE ---
0925-pt had labs collected yesterday his hgb was 12.0 pt does not need procrit per md standing order;pt to return in one month for lab recheck.
== END 2022-04-03 09:25 | disposition home or self-care (01) ==
LOC: INF 09:14
PROVIDERS: PCP Internal Medicine Adolescent Medicine; Visit Provider Internal Medicine Nephrology
DX: N18.30 Chronic kidney disease, stage 3 unspecified (principal); D63.1 Anemia in chronic kidney disease
CPT/HCPCS: 36415

== ENCOUNTER 2022-04-04 06:20 | Day surgery (SDC) | payer MEDICARE, SELFPAY ==
[2022-04-02 14:09] VITALS: BMI 20.7
[2022-04-04] VITALS (10 sets, daily range): BP systolic 110–167; BP diastolic 62–82; PULSE 59–66; RESP 14–18; TEMP 36.1–36.9; O2SAT 96–99
[2022-04-04 06:57] LABS: POC Glucose,Bedside 123 (70-110)
--- NOTE | 2022-04-04 07:06 | P.PN_ITS ---
PFSH PFSH Medical History Allergies Arrhythmia Cervical vertebral fusion Cholecystectomy planned Diabetes mellitus, type 2 History of anemia History of cataract History of COVID-19 History of heart attack Hyperlipidemia Hypertension Pacemaker Pneumonia Surgical History H/O cardiac catheterization Hx of CABG Family History Father Colon cancer Mother Family history of Alzheimer's disease Social History (Updated 04/04/22 @ 07:00 by Cait Escalona RN) Smoking Status: Never smoker second hand exposure: No alcohol intake: never substance use type: denies use current occupational status: retired Travel in the last 8 weeks: Inside the [place] household members: spouse housing: house current occupational exposures/hazards: No caffeine: Yes [facility] [place] Anesthesia Checklist Patient Identification Patient Identification: Arm Band and Verbal (Name & ) Structural Data Admitted From: Home Planned Operative Procedure/s: Excision of olecranon bursitis Consent for Planned Operative Procedure(s) Verified: Yes NPO Status Verified Time NPO: 00:00 Additional verifications Anesthesia Reactions: No Hx Blood Transfusions: No Blood Transfusion Reaction: No Airway Assessment C-Spine Mobility Assessed: Yes TMJ Mobility Assessed: Yes Dentition: Good Dentition Neurological Assessment Level of Consciousness: Awake Hx Seizures: No Numbness or tingling in extremities: No Anesthesia Plan Anesthesia Risk discussed: Yes Anesthesia Plan: Verified ASA Class: III Anesthesia Type: General
--- NOTE | 2022-04-04 09:26 | P.PNANES_ITS ---
[facility] Anesthesia Record Part I Anesthesia Record I Intake, IV Amount: 300 Estimated blood loss (mL): 2 Urine output (mL): 0 Blood Pressure: 111/62 SaO2: 99 Pulse Rate: 64 Respiratory Rate: 14 Temperature: 97.1 F Patient is:: Drowsy and Oral/Nasal airway Stable to PACU at:: 09:25
--- NOTE | 2022-04-04 09:30 | EXP.OP.NOTE ---
Date of procedure: 04/04/22 Pre-op Diagnosis:: Right elbow olecranon bursitis nonseptic Post-op Diagnosis:: Same Procedure performed:: Excision olecranon bursitis right elbow Surgeon:: Real Callahan DO HIM SPECIALIST:: Cheryl Dhillon Anesthesia: GETA Estimated blood loss (mL): 0 Operative findings:: Noninfected and thickened olecranon bursitis Operative note:: Patient was identified preoperatively. Right elbow marked yes my initials. Transferred operative suite placed prone operating bed general anesthesia was administered. Right upper extremity prepped and draped in normal sterile fashion. Once prepped and draped final operative timeout performed to identify proper patient procedure and extremity. Everyone involved in the case agreed there were no counter indications to beginning he did receive preoperative antibiotics Marking pen was used to make plan incision over the elbow. Esmarch was used to exsanguinate extremity pneumatic tourniquet inflated 250 mmHg. Skin knife is used to incise the skin careful dissection was taken down with scissors to identify olecranon bursa there was a large amount of fluid that was blood-tinged and not infected. Careful dissection was taken around the elbow to identify the olecranon bursa and it was excised without difficulty. Copious irrigation wound deep layers closed with Vicryl skin closed with nylon stitch Sterile dressing placed patient with anesthesia taken recovery in stable condition Tourniquet time (min): 30 Condition: stable Disposition: PACU Complications:: None apparent
[2022-04-04 09:32] LABS: POC Glucose,Bedside 105 (70-110)
--- NOTE | 2022-04-04 10:07 | SUR.PHASEI ---
0926- pt blood sugar at this time via finger stick is 105. 0954- detailed report called to key cheek in post op 0956- pt left in stable condition with key cheek in post op.
--- NOTE | 2022-04-05 09:56 | P.PNANES_ITS ---
[facility] Anesthesia Record Part II Anesthesia Record Part II Discharge Time: 09:55 Destination: Surgical Day Care (OP Surgery) PACU nurse assessment reviewed?: Yes Patient Condition:: Good Anesthesia Complications:: None Swallowing reflex intact?: Yes Cyanosis?: No Blood Pressure: 147/74 Pulse Rate: 62 Temperature: 97.2 F Mental Status: Alert & Oriented Pain level:: 0 Nausea and/or vomitting:: None Intake, IV Amount: 0
[2022-04-05 09:58] VITALS: BP 147/74; PULSE 62; TEMP 36.2
== END 2022-04-04 10:43 | disposition home or self-care (01) ==
PROVIDERS: PCP Internal Medicine Adolescent Medicine; Visit Provider Orthopaedic Surgery
DX: M70.21 Olecranon bursitis, right elbow (principal); I10 Essential (primary) hypertension; Z95.0 Presence of cardiac pacemaker; Z95.1 Presence of aortocoronary bypass graft; E11.9 Type 2 diabetes mellitus without complications; Z79.84 Long term (current) use of oral hypoglycemic drugs; Z87.891 Personal history of nicotine dependence; Z79.899 Other long term (current) drug therapy
CPT/HCPCS: 24105; 82962; 96372; 96374; 99212; G0463

== ENCOUNTER 2022-04-08 18:24 | Emergency (ER) | payer MEDICARE, SELFPAY ==
--- NOTE | 2022-04-08 18:28 | EXP.UTC ---
Discharge Plan Disposition Patient Disposition: Home, Self-Care Condition: Good Prescriptions Prescriptions: New methylprednisolone 4 mg Tablets,Dose Pack 4 mg PO DIRECTED Qty: 21 0RF Chloraseptic Throat Flomaton 1.4 % aerosol,spray 4 spray mucous membrane Q4H PRN (Reason: sore throat) Qty: 177 0RF No Action nitroglycerin 0.4 mg tablet, sublingual 0.4 mg SUBLINGUAL NEEDED PRN (Reason: CP) chlorthalidone 25 mg tablet 25 mg PO DAILY clopidogrel 75 mg tablet 75 mg PO DAILY atorvastatin 80 mg tablet 80 mg PO HS metformin 1,000 mg tablet 1,000 mg PO DAILY omeprazole 20 mg capsule,delayed release(DR/EC) 20 mg PO BID [id number] acid-lutein [Centrum Silver] 400-250 mcg tablet,chewable 1 tab PO DAILY vitamin E (dl, acetate) 400 unit capsule 800 unit PO QDAY tamsulosin 0.4 mg capsule,extended release 24hr 0.4 mg PO QDAY hydralazine 50 mg tablet 100 mg PO TID carvedilol 12.5 mg tablet 12.5 mg PO BID valsartan 320 mg tablet 320 mg PO DAILY ferrous sulfate 324 mg (65 mg iron) tablet,delayed release 324 mg (65 mg iron) tablet,delayed release (DR/EC) 324 mg PO DAILY tramadol 50 mg tablet 50 mg PO Q6H PRN (Reason: post op pain) Qty: 30 0RF aspirin 81 MG tablet,delayed release (DR/EC) 81 mg PO DAILY cyanocobalamin (vitamin B-12) 2,500 MCG tablet 1,250 mcg PO DAILY isosorbide mononitrate 30 mg tablet extended release 24 hr 30 mg PO BID tramadol 50 mg tablet 50 mg PO Q6H PRN (Reason: pain) Qty: 30 0RF Referrals Follow up/Referrals: Abel Basilio MD [Primary Care Provider] - See instructions Activity Restrictions/Add. Instructions Additional Instructions/Restrictions: Drink plenty of fluids. Take tylenol for pain. Garge with salt water at least a couple times per day for the next few days. Take the medications as directed. Follow up with your regular doctor. GO TO THE ER FOR ANY WORSENING SYMPTOMS Clinical Impressions Clinical Impression: Pharyngitis, Injury of oropharynx Instructions Patient Instructions: DI for Pharyngitis/Tonsillopharyngitis -- Adult Discharge ED Provider: Abel Lopez [facility] [place] HPI General Stated complaint: sore throat, ear pain Time Seen by Provider: 04/08/22 18:27 History of Present Illness Provider Complaint: He had a medical procedure done 3 days ago. He was intubated during the procedure. Since then, He has had sore throat and swelling of his uvula since then. He denies any shortness of breath. Related Data Home Medications Medication Instructions Recorded Confirmed metformin 1,000 mg tablet 1,000 mg PO DAILY Diabetes 07/23/17 04/04/22 multivit with min-folic 1 tab PO DAILY Supplement 07/23/17 04/04/22 acid-lutein 400 mcg-250 mcg chewable tablet (Centrum Silver) omeprazole 20 mg capsule,delayed 20 mg PO BID GERD 07/23/17 04/04/22 release tamsulosin 0.4 mg capsule 0.4 mg PO QDAY prostate 07/23/17 04/04/22 vitamin E (dl, acetate) 180 mg 800 unit PO QDAY Supplement 07/23/17 04/04/22 (400 unit) capsule hydralazine 50 mg tablet 100 mg PO TID BLOOD PRESSURE 12/12/17 04/04/22 aspirin 81 mg tablet,delayed 81 mg PO DAILY CAD 08/12/19 04/04/22 release atorvastatin 80 mg tablet 80 mg PO HS Cholesterol 09/10/19 04/04/22 chlorthalidone 25 mg tablet 25 mg PO DAILY * 09/10/19 04/04/22 clopidogrel 75 mg tablet 75 mg PO DAILY Blood thinner 09/10/19 04/04/22 nitroglycerin 0.4 mg sublingual 0.4 mg sublingual NEEDED PRN CP 09/10/19 04/04/22 tablet carvedilol 12.5 mg tablet 12.5 mg PO BID BP 09/26/20 04/04/22 valsartan 320 mg tablet 320 mg PO DAILY BP 09/26/20 04/04/22 cyanocobalamin (vitamin B-12) 1,250 mcg PO DAILY Supplement 10/27/20 04/04/22 2,500 mcg tablet ferrous sulfate 324 mg (65 mg 324 mg PO DAILY Supplement 04/05/21 04/04/22 iron) tablet,delayed release isosorbide mononitrate 30 mg 30 mg PO BID High blood pressure
[2022-04-08 18:40] VITALS: BP 146/67; PULSE 63; RESP 19; TEMP 36.7; O2SAT 97; BMI 21.2
[2022-04-08 19:21] LABS: UTC Strep Screen (Rapid) Negative (Negative)
[2022-04-08 19:53] VITALS: BP 146/67; PULSE 63; RESP 19; TEMP 36.7; O2SAT 97
== END 2022-04-08 20:08 | disposition home or self-care (01) ==
PROVIDERS: Nurse Practitioner Family; Emergency Provider Psychiatry & Neurology Clinical Neurophysiology; PCP Internal Medicine Adolescent Medicine
DX: S19.85XA Other specified injuries of pharynx and cervical esophagus, initial encounter (principal); Z98.890 Other specified postprocedural states; Z79.82 Long term (current) use of aspirin; Z79.84 Long term (current) use of oral hypoglycemic drugs; Z79.899 Other long term (current) drug therapy; Z88.0 Allergy status to penicillin; Z88.8 Allergy status to other drugs, medicaments and biological substances; E11.9 Type 2 diabetes mellitus without complications; I10 Essential (primary) hypertension; E78.5 Hyperlipidemia, unspecified; Z95.0 Presence of cardiac pacemaker; Z95.1 Presence of aortocoronary bypass graft
CPT/HCPCS: 87880

== ENCOUNTER 2022-04-10 21:53 | Inpatient (IN) | payer MEDICARE, SELFPAY ==
--- NOTE | 2022-04-10 21:49 | ECG_ITS ---
APPROVED REPORT Exam: Resting ECG HR:88 bpm ECG Measurements Heart Rate 88 AXES QRSd 178 QRS 94 QT 409 T 220 QTc 455 Conclusion ELECTRONIC VENTRICULAR PACEMAKER ABNORMAL RHYTHM ECG UNCONFIRMED REPORT Electronically signed by : Abel Basilio MD 04/12/2022 15:57:52
[2022-04-10 21:53] VITALS: BP 182/99; PULSE 94; RESP 15; TEMP 36.4; O2SAT 100; BMI 21.7
[2022-04-10 22:00] VITALS: BP 186/88; PULSE 82; RESP 19; O2SAT 99
--- NOTE | 2022-04-10 22:10 | PC.NURSE ---
Allergy bracelet placed on arm.Warm blanket and pillow provided for comfort. No other needs voiced.
[2022-04-10 22:29] LABS: Basophils # 0.1 K/mm3 (0-0.2); Basophils % 0.5 % (0.1-2.0); Eosinophils # 0.1 K/mm3 (0.0-0.4); Eosinophils % 0.7 % (0.1-12.0); Hematocrit 35.4 % (42.0-52.0); Hemoglobin 11.7 g/dL (14.1-18.0); Lymphocytes # 0.9 K/mm3 (0.7-4.5); Lymphocytes % 8.5 % (10-50); Mean Corpuscular HGB Conc 33.1 g/dL (31.8-35.4); Mean Corpuscular Hemoglobin 31.9 pg (27.0-31.2); Mean Corpuscular Volume 96.4 fl (80-94); Mean Platelet Volume 8.4 fl (7.4-10.4); Monocytes # 0.7 K/mm3 (0.1-1.0); Monocytes % 6.9 % (1.7-9.3); Neutrophils # 8.8 K/mm3 (1.8-7.8); Neutrophils % 83.4 % (37.0-80.0); Platelet Count 222 K/mm3 (142-424); Red Blood Count 3.67 M/mm3 (4.60-6.20); Red Cell Distribution Width 13.5 % (11.5-17.5); White Blood Count 10.6 K/mm3 (4.8-10.8)
[2022-04-10 22:30] VITALS: BP 176/93; PULSE 90; RESP 15; O2SAT 100
--- NOTE | 2022-04-10 22:31 | HMH.EDCP ---
Discharge Plan Disposition Patient Disposition: Admitted as Observation Chief Complaint: Chest Pain Clinical Impressions Clinical Impression: CAD (coronary artery disease), Non-ST elevated myocardial infarction Discharge ED Provider: Ernesto Goldstein Chest Pain HPI General Chief Complaint: Chest Pain Stated Complaint: CP Time Seen by Provider: 04/10/22 22:31 Mode of Arrival: Ambulatory Source of Information: Patient, Spouse and Medical Record Limitations: No Limitations Description of Symptoms (Recalled from ER Triage Doc. by RN): PT STATES THAT HE IS HAVING MIDSTERNAL CHEST PAIN AND IT RADIATES DOWN THE RIGHT ARM. PT STATES THAT HE HAS TAKEN 7 NITRO SUBLINGUAL TRYING TO TAKE THE PAIN AWAY History of Present Illness HPI narrative: pt with hx of cad with chest pain with rad to rt upper ext - pain has resolved now - took multiple ntg MD complaint: chest pain indicative of cardiac Onset (ago): hour(s) Duration: now resolved Activity at onset: during rest Pain location: left chest Severity: similar to previous episodes Quality: aching Pain radiation: RUE Relieving factors: nitroglycerin Risk Factors for CAD: Hypertension and Family Hx of CAD Treatments prior to or on arrival for Cardiac Chest Pain: aspirin and nitroglycerin FLACO Score for Non-Stemi Age of Patient: 70-79 years old Heart Rate: 90-109 bpm Systolic Blood Pressure: 160-199 mmHg Serum Creatinine: 1.20-1.59 mg/dl CHF [place] Class: I-No CHF Other Risk Factors: Elevated Cardiac Enzymes or Biomarkers Non-Stemi Risk Score: 124 Related Data Home Medications Medication Instructions Recorded Confirmed metformin 1,000 mg tablet 1,000 mg PO DAILY Diabetes 07/23/17 04/10/22 multivit with min-folic 1 tab PO DAILY Supplement 07/23/17 04/04/22 acid-lutein 400 mcg-250 mcg chewable tablet (Centrum Silver) omeprazole 20 mg capsule,delayed 20 mg PO BID GERD 07/23/17 04/10/22 release tamsulosin 0.4 mg capsule 0.4 mg PO QDAY prostate 07/23/17 04/10/22 vitamin E (dl, acetate) 180 mg 800 unit PO QDAY Supplement 07/23/17 04/10/22 (400 unit) capsule hydralazine 50 mg tablet 100 mg PO TID BLOOD PRESSURE 12/12/17 04/10/22 aspirin 81 mg tablet,delayed 81 mg PO DAILY CAD 08/12/19 04/10/22 release atorvastatin 80 mg tablet 80 mg PO HS Cholesterol 09/10/19 04/10/22 chlorthalidone 25 mg tablet 25 mg PO DAILY * 09/10/19 04/10/22 clopidogrel 75 mg tablet 75 mg PO DAILY Blood thinner 09/10/19 04/10/22 nitroglycerin 0.4 mg sublingual 0.4 mg sublingual NEEDED PRN CP 09/10/19 04/10/22 tablet carvedilol 12.5 mg tablet 12.5 mg PO BID BP 09/26/20 04/10/22 valsartan 320 mg tablet 320 mg PO DAILY BP 09/26/20 04/10/22 cyanocobalamin (vitamin B-12) 1,250 mcg PO DAILY Supplement 10/27/20 04/10/22 2,500 mcg tablet ferrous sulfate 324 mg (65 mg 324 mg PO DAILY Supplement 04/05/21 04/10/22 iron) tablet,delayed release isosorbide mononitrate 30 mg 30 mg PO BID High blood pressure 04/02/22 04/10/22 tablet,extended release 24 hr methylprednisolone 4 mg tablets in 4 mg PO DIRECTED Supplement 04/10/22 04/10/22 a dose pack Previous Rx's Medication Instructions Recorded tramadol 50 mg tablet 50 mg PO Q6H PRN pain #30 tabs 04/04/22 tramadol 50 mg tablet 50 mg PO Q6H PRN post op pain #30 04/04/22 tabs phenol 1.4 % mucosal aerosol spray 4 spray mucous membrane Q4H PRN 04/08/22 (Chloraseptic Throat [place]) sore throat #177 mL Allergies Allergy/AdvReac Type Severity Reaction Status Date / Time Penicillins Allergy Unknown Verified 04/04/22 06:40 amlodipine AdvReac Intermediate Fainting Verified 04/04/22 06:40 PFSH PFSH Medical History Allergies Arrhythmia Cervical vertebral fusion Cholecystectomy planned Diabetes mellitus, type 2 History of anemia History of cataract History of COVID-19 History of heart attack Hyperlipidemia Hypertension Pacemaker Pneumonia Surgical History (Reviewed 04/08/22 @ 22:35 b
[2022-04-10 22:33] LABS: Chloride 99 mmol/L (98-107); Sodium 138 mmol/L (136-145)
[2022-04-10 22:34] LABS: Potassium 4.4 mmoL/L (3.5-5.1)
[2022-04-10 22:36] LABS: Blood Urea Nitrogen 35 mg/dl (9-20); Creatinine Clearance Estimated 56 mL/min (50-200); Estimated Glomerular Filt Rate 50 ml/min (>60); GFR (African American) 61 ML/MIN (>60)
[2022-04-10 22:37] LABS: Anion Gap 16.4 mEq/L (5-15); Calcium 8.7 mg/dl (8.4-10.2); Carbon Dioxide 27 mmol/L (22.0-30.0); Glucose 180 mg/dl (74-100)
--- NOTE | 2022-04-10 22:41 | PC.NURSE ---
data warehouse manager notified of need for a bed
--- NOTE | 2022-04-10 22:45 | HMH.ITSTN ---
tech attempted xray, patient refused. tech notified
[2022-04-10 22:50] LABS: Troponin I 0.18 ng/ml (0.00-0.034)
[2022-04-10 23:00] VITALS: BP 160/88; PULSE 82; RESP 16; O2SAT 100
--- NOTE | 2022-04-10 23:22 | PC.NURSE ---
Pt ambulatory to bathroom.
[2022-04-10 23:24] LABS: Coronavirus 19, PCR Not Detected (NotDetected); Influenza A, PCR Not Detected (NotDetected); Influenza B, PCR Not Detected (NotDetected)
[2022-04-10 23:30] VITALS: BP 151/80; PULSE 82; RESP 17; O2SAT 99
--- NOTE | 2022-04-10 23:30 | PC.NURSE ---
Spoke with [facility] at [phone]. They stated they will have electronics worker pulmonologist/intensivist call back for consult
--- NOTE | 2022-04-10 23:57 | PC.NURSE ---
Pt/ updated that we are waiting for a call back from [facility]. No needs or complaints voiced at this time.
[2022-04-11] VITALS (10 sets, daily range): BP systolic 135–161; BP diastolic 70–85; PULSE 60–87; RESP 15–16; TEMP 36.4–36.9; O2SAT 97–100; BMI 21.9
--- NOTE | 2022-04-11 00:07 | PC.NURSE ---
Dr. Goldstein on phone with Dr. Morales at [facility]
--- NOTE | 2022-04-11 00:11 | PC.NURSE ---
Dr. Maier paged for Dr. Goldstein
--- NOTE | 2022-04-11 00:15 | PC.NURSE ---
Dr. Goldstein on phone with Dr. Maier
--- NOTE | 2022-04-11 00:20 | PC.NURSE ---
Second trop drawn and sent to lab
--- NOTE | 2022-04-11 00:23 | PC.NURSE ---
appliance service supervisor notified of pt admission and need for bed assignment
--- NOTE | 2022-04-11 00:25 | PC.NURSE ---
Verbal phone orders from [facility] for 1mg/kg lovenox SQ once now.
[2022-04-11 00:55] LABS: Troponin I 0.27 ng/ml (0.00-0.034)
--- NOTE | 2022-04-11 01:20 | PC.NURSE ---
Called report to Gwen
--- NOTE | 2022-04-11 01:35 | PC.NURSE ---
patient up to floor via wheelchair @ this time.
--- NOTE | 2022-04-11 05:13 | PC.NURSE ---
pt admitted this shift. A&OX4. ambulates with standby assistance. states he has not had any chest pain since arrival to the hospital. no c/o SOA. paced on tele. O2 sats 97-100% on RA. CB in reach.
[2022-04-11 05:54] LABS: POC Glucose,Bedside 109 (70-110)
[2022-04-11 06:56] LABS: Anion Gap 11.7 mEq/L (5-15); Blood Urea Nitrogen 31 mg/dl (9-20); Calcium 8.3 mg/dl (8.4-10.2); Carbon Dioxide 29 mmol/L (22.0-30.0); Chloride 102 mmol/L (98-107); Creatinine Clearance Estimated 61 mL/min (50-200); Estimated Glomerular Filt Rate 55 ml/min (>60); GFR (African American) 66 ML/MIN (>60); Glucose 95 mg/dl (74-100); Potassium 3.7 mmoL/L (3.5-5.1); Sodium 139 mmol/L (136-145)
[2022-04-11 07:00] LABS: Basophils % 0.5 % (0.1-2.0); Eosinophils # 0.2 K/mm3 (0.0-0.4); Eosinophils % 1.8 % (0.1-12.0); Hematocrit 31.8 % (42.0-52.0); Lymphocytes # 1.4 K/mm3 (0.7-4.5); Lymphocytes % 16.9 % (10-50); Mean Corpuscular HGB Conc 32.7 g/dL (31.8-35.4); Mean Corpuscular Hemoglobin 31.1 pg (27.0-31.2); Monocytes # 0.7 K/mm3 (0.1-1.0); Monocytes % 8.5 % (1.7-9.3); Neutrophils # 5.8 K/mm3 (1.8-7.8); Neutrophils % 72.2 % (37.0-80.0); Platelet Count 202 K/mm3 (142-424); Red Blood Count 3.35 M/mm3 (4.60-6.20); Red Cell Distribution Width 13.5 % (11.5-17.5); White Blood Count 8.1 K/mm3 (4.8-10.8)
[2022-04-11 07:02] LABS: Hemoglobin 10.4 g/dL (14.1-18.0)
--- NOTE | 2022-04-11 07:31 | EXP.PHA.VTE ---
[facility] Pharmacy VTE Monitoring Patient Demographics Admission date: 04/11/22 Report Date: 04/11/22 Time: 07:31 Patient Allergies Penicillins Allergy (Unknown, Verified 04/04/22 06:40) amlodipine Adverse Reaction (Intermediate, Verified 04/04/22 06:40) Fainting Height: 1.93 m Weight: 81.828 kg Current Active Problems (Updated 04/11/22 @ 00:43 by Ernesto Goldstein MD) CAD (coronary artery disease) (Acute) Non-ST elevated myocardial infarction (Acute) VTE Risk Labs: VTE Related Lab Results Hgb 10.4 g/dL (14.1-18.0) L D 04/11/22 06:10 Hct 31.8 % (42.0-52.0) L 04/11/22 06:10 Plt Count 202 K/mm3 (142-424) 04/11/22 06:10 BUN 31 mg/dl (9-20) H 04/11/22 06:10 Creatinine 1.30 mg/dl (0.66-1.25) H 04/11/22 06:10 Estimated Creat Clear 61 mL/min (50-200) 04/11/22 06:10 VTE Score: 1 VTE Risk Level: Very Low Risk Prophylaxis VTE Prophylaxis Ordered?: Yes Types of VTE Prophylaxis: TEDS Knee High Location of Applied Device: Bilateral Lower Extremeties
--- NOTE | 2022-04-11 07:40 | HMH.PHAINT1 ---
Pharmacy Intervention Comments: Home medication reconciliation was completed using outpatient pharmacy medication list and interview with patient.
--- NOTE | 2022-04-11 08:27 | CA_ITS ---
APPROVED REPORT EXAM: Comprehensive 2D, Doppler, and color-flow Echocardiogram Biological Engineer: Kelsey De Jesus RVT Ht: 6 ft 3 in Wt: 180lbs BSA: 2.10 BP: 161/85 mmHg Indications: NSTEMI,ELEVATED TROP,CAD,CABG,PACER,DM,HTN,HLD,HX OF COVID 2D Dimensions LVOT 2.04 cm (M/F) 1.5-2.5 LA Volume 88.10 mL LA Volume Index 41.95 mL/m2 (M/F) 16-34 M-Mode Dimensions RVDd 2.87 cm (0.9-2.6) LA Diam 5.11 cm (1.9-4.0) LVDd 4.78 cm (3.5-5.7) Ao Diam 3.49 cm (2.0-3.7) LVDs 2.91 cm (3.5-5.7) IVSd 1.55 cm (0.6-1.1) PWd 1.01 cm (0.6-1.1) EF (Teich) 69.50% FS 39.10% EDV (Teich) 106.50 mL TAPSE 1.84 (<1.7) ESV (Teich) 32.50 mL LV Diastology E Decel Time 217.00 (160-240 msec) E/A Ratio 1.4 MED E' 4.40 (< 7 cm/sec) E'/MED E' Ratio 25.30 (>14) LAT E' 9.80 (<10 cm/sec) E/LAT E' Ratio 11.36 (>14) Aortic Valve AI PHT 1198.00 ms AO Peak GR. 8.90 mmHg Mitral Valve MV E Max Arnulfo. 111.00 (40-130 cm/s) MV A Velocity 81.00 (40-130 cm/s) E/A Ratio 1.38 MV Decel. Time 217.00 (160-240 ms) MV PHT 63.00 ms Pulmonary Valve PV Peak Velocity 130.00 (50-150 cm/s) Tricuspid Valve TR P. Velocity 388.00 cm/s RAP Estimate 10.00 mmHg RVSP 70.40 mmHg Left Ventricle Left atrium is mildly enlarged, left ventricle is normal size mild concentric left ventricular hypertrophy, estimated ejection fraction 45%, there is marked inferior basal wall hypokinesis. Diastolic parameters are inconclusive. Right Ventricle Right atrium and right ventricle are mildly enlarged with normal contractility, pacemaker lead seen in right atrium and right ventricle. Aortic Valve Aortic valve is thickened and calcified without Doppler evidence of aortic stenosis, there is mild aortic insufficiency. Mitral Valve Mitral valve leaflets are minimally thickened, there is no mitral stenosis, there is moderate mitral regurgitation. Tricuspid Valve Tricuspid valve grossly normal, there is moderate tricuspid regurgitation, calculated right ventricular systolic pressure is 43 mmHg. Pulmonic Valve Pulmonic valve is poorly visualized. Great Vessels Aortic root is normal size. Inferior vena cava is poorly visualized. Pericardium No significant pericardial effusion noted. Conclusion 1. Biatrial enlargement, normal left ventricular size, mild concentric left ventricular hypertrophy, estimated ejection fraction 45% with segmental wall motion abnormality described above, diastolic parameters are inconclusive. 2. Mildly enlarged right ventricle with normal contractility. 3. Thickened and calcified aortic valve without aortic stenosis, there is mild aortic insufficiency. 4. Moderate mitral and tricuspid regurgitation, calculated right ventricular systolic pressure is 43 mmHg. 5. No significant pericardial effusion noted. 6. Inferior vena cava is poorly visualized. Electronically signed by : Roc Stewart MD 04/12/2022 06:34:43
--- NOTE | 2022-04-11 08:40 | EXP.HP ---
History of Present Illness *Admission Date: 04/11/22 *Reason for visit:: Epigastric chest pain *History of present illness: 71-year-old white male with long cardiac history, multiple histories of DC and multiple stent placements. Follows with storage engineer [facility]. Had an episode of upper epigastric chest pain that he thought was heartburn, but took some nitroglycerin and it resolved but then came back, his prevailed upon him to come to the hospital and he was found to have evidence of a non-STEMI with elevated troponin levels. Patient wished to be transferred to [facility] but no beds were available and he was admitted here for further diagnostic evaluation and observation. Currently he is symptom-free [facility] Medical History Allergies Arrhythmia Cervical vertebral fusion Cholecystectomy planned Diabetes mellitus, type 2 History of anemia History of cataract History of COVID-19 History of heart attack Hyperlipidemia Hypertension Pacemaker Pneumonia Surgical History H/O cardiac catheterization History of open heart surgery History of tonsillectomy Hx of CABG Family History Father Colon cancer Mother Family history of Alzheimer's disease Social History (Updated 04/11/22 @ 02:09 by Prudence Padilla RN) Smoking Status: Never smoker second hand exposure: No alcohol intake: never substance use type: denies use current occupational status: retired Travel in the last 8 weeks: Inside the [place] household members: spouse housing: house current occupational exposures/hazards: No caffeine: Yes Review of Systems Review of Systems Review of systems:: pertinent systems reviewed and negative unless documented below Meds Home Medications and Allergies Home Medications Medication Instructions Recorded Confirmed Type metformin 1,000 mg tablet 1,000 mg PO DAILY Diabetes 07/23/17 04/10/22 History multivit with min-folic 1 tab PO DAILY Supplement 07/23/17 04/04/22 History acid-lutein 400 mcg-250 mcg chewable tablet (Centrum Silver) omeprazole 20 mg capsule,delayed 20 mg PO BID acid reflux 07/23/17 04/10/22 History release tamsulosin 0.4 mg capsule 0.4 mg PO QDAY prostate 07/23/17 04/10/22 History vitamin E (dl, acetate) 180 mg 800 unit PO QDAY Supplement 07/23/17 04/10/22 History (400 unit) capsule hydralazine 50 mg tablet 100 mg PO TID BLOOD PRESSURE 12/12/17 04/10/22 History aspirin 81 mg tablet,delayed 81 mg PO DAILY CAD 08/12/19 04/10/22 History release atorvastatin 80 mg tablet 80 mg PO HS Cholesterol 09/10/19 04/10/22 History chlorthalidone 25 mg tablet 25 mg PO DAILY blood pressure 09/10/19 04/10/22 History clopidogrel 75 mg tablet 75 mg PO DAILY Blood thinner 09/10/19 04/10/22 History nitroglycerin 0.4 mg sublingual 0.4 mg sublingual NEEDED PRN 09/10/19 04/10/22 History tablet Chest Pain carvedilol 12.5 mg tablet 12.5 mg PO BID blood pressure 09/26/20 04/10/22 History valsartan 320 mg tablet 320 mg PO DAILY blood pressure 09/26/20 04/10/22 History cyanocobalamin (vitamin B-12) 1,250 mcg PO DAILY Supplement 10/27/20 04/10/22 History 2,500 mcg tablet ferrous sulfate 324 mg (65 mg 324 mg PO DAILY Supplement 04/05/21 04/10/22 History iron) tablet,delayed release isosorbide mononitrate 30 mg 30 mg PO BID High blood pressure 04/02/22 04/10/22 History tablet,extended release 24 hr tramadol 50 mg tablet 50 mg PO Q6H PRN pain #30 tabs 04/04/22 04/11/22 Rx phenol 1.4 % mucosal aerosol spray 4 spray mucous membrane Q4H PRN 04/08/22 04/10/22 Rx (Chloraseptic Throat [place]) sore throat #177 mL methylprednisolone 4 mg tablets in 4 mg PO DIRECTED Supplement 04/10/22 04/10/22 History a dose pack New Prescriptions to Start Prescriptions: Allergies Allergy/AdvReac Type Severity Re
--- NOTE | 2022-04-11 10:24 | PC.NURSE ---
Pt's went home to get meds, awaiting her to bring back in order to give pt am meds. Pt is med obs. Pt has no c/o at this time and VSS.
[2022-04-11 11:21] LABS: POC Glucose,Bedside 147 (70-110)
[2022-04-11 15:41] LABS: POC Glucose,Bedside 174 (70-110)
--- NOTE | 2022-04-11 19:41 | PC.NURSE ---
Pt a/o x 4. NAD. No changes since previous assessment. CB in reach and @ bedside. Paced on tele. VSS. Denies pain.
[2022-04-11 21:10] LABS: POC Glucose,Bedside 155 (70-110)
[2022-04-12] VITALS: BP 126/62; PULSE 69; PULSE 80; RESP 16; TEMP 36.8; O2SAT 96
[2022-04-12 04:00] VITALS: BP 128/70; PULSE 60; PULSE 72; RESP 16; TEMP 36.9; O2SAT 96
--- NOTE | 2022-04-12 04:44 | PC.NURSE ---
NO ACUTE CHANGES SINCE PREVIOUS ASSESSMENT. HAS RESTED INTERMITTENTLY THIS SHIFT. VSS. LUNG SOUNDS ARE CLEAR. REMAINS ON ROOM AIR. NO C/O CHEST PAIN OR SHORTNESS OF BREATH. VSS. PT HAS EXPRESSED HIS DESIRE TO BE DISCHARGED AND TO SEE HIS ENVELOPE MACHINE ADJUSTER AT [facility]. NO OTHER COMPLAINTS THIS SHIFT.
[2022-04-12 08:00] VITALS: BP 147/57; PULSE 60; PULSE 70; RESP 14; TEMP 36.6; O2SAT 98
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
--- NOTE | 2022-04-13 13:14 | CARE MANAGER ---
Contacted patient who was in the dental laboratory technology teacher waiting area at [facility]. He denies any questions or concerns at this time. SIGRID Fuentes
== END 2022-04-12 10:38 | disposition home or self-care (01) | DRG 282 ==
LOC: ER 22:33 → 2ND 04-11 00:28
PROVIDERS: Admitting Provider Emergency Medicine; Emergency Provider Emergency Medicine; Visit Provider Internal Medicine Adolescent Medicine
DX: I21.4 Non-ST elevation (NSTEMI) myocardial infarction (principal); I25.10 Atherosclerotic heart disease of native coronary artery without angina pectoris; E11.40 Type 2 diabetes mellitus with diabetic neuropathy, unspecified; Z95.5 Presence of coronary angioplasty implant and graft; Z79.899 Other long term (current) drug therapy; Z86.16 Personal history of COVID-19; Z95.1 Presence of aortocoronary bypass graft; Z79.84 Long term (current) use of oral hypoglycemic drugs; Z95.0 Presence of cardiac pacemaker; E78.5 Hyperlipidemia, unspecified; I25.2 Old myocardial infarction
CPT/HCPCS: 36415; 80048; 82962; 84484; 85025; 87880; 93005; 93306; 99285; C9803; U0003; U0005

== ENCOUNTER 2022-05-01 09:23 | Outpatient (CLI) | payer MEDICARE, SELFPAY ==
[2022-05-01 09:31] VITALS: BMI 20.1
--- NOTE | 2022-05-01 09:37 | PC.NURSE ---
0937-collected labs via peripheral stick; pt will wait for results if hgb <11 pt to get procrit injection
[2022-05-01 09:48] LABS: Hematocrit 35.3 % (42.0-52.0); Hemoglobin 11.4 g/dL (14.1-18.0)
[2022-05-01 09:59] LABS: Potassium 4.2 mmoL/L (3.5-5.1)
--- NOTE | 2022-05-01 10:00 | PC.NURSE ---
1000-pt ok to d/c home;will return in one month; hgb 11.4
[2022-05-01 10:02] LABS: Creatinine Clearance Estimated 36 mL/min (50-200); Estimated Glomerular Filt Rate 31 ml/min (>60); GFR (African American) 38 ML/MIN (>60); Iron 69 ug/dL (49-181)
[2022-05-01 10:11] LABS: Total Iron Binding Capacity 287 ug/dL (261-462)
[2022-05-01 10:40] LABS: Ferritin 97.8 ng/ml (17.9-464)
== END 2022-05-01 10:00 | disposition home or self-care (01) ==
LOC: INF 09:24
PROVIDERS: PCP Internal Medicine Adolescent Medicine; Visit Provider Internal Medicine Nephrology
DX: N18.30 Chronic kidney disease, stage 3 unspecified (principal); D63.1 Anemia in chronic kidney disease
CPT/HCPCS: 36415; 82565; 82728; 83540; 83550; 84132; 85014; 85018

== ENCOUNTER 2022-05-02 12:49 | Outpatient (RCR) | payer MEDICARE, SELFPAY | END 2022-06-06 13:50 | disposition home or self-care (01) | LOC: PT 12:49 | PROVIDERS: Visit Provider Internal Medicine | DX: I21.4 Non-ST elevation (NSTEMI) myocardial infarction (principal) | CPT/HCPCS: 93798 ==

== ENCOUNTER 2022-05-29 10:17 | Outpatient (CLI) | payer MEDICARE, SELFPAY ==
--- NOTE | 2022-05-29 10:30 | PC.NURSE ---
1030-collected labs via peripheral stick will wait on labs if pt hgb <11 pt to get procrit 20,000 units sq injection
[2022-05-29 10:49] LABS: Hemoglobin 10.2 g/dL (14.1-18.0)
[2022-05-29 11:02] LABS: Potassium 3.6 mmoL/L (3.5-5.1)
[2022-05-29 11:05] LABS: Creatinine Clearance Estimated 44 mL/min (50-200); Estimated Glomerular Filt Rate 40 ml/min (>60); GFR (African American) 48 ML/MIN (>60); Iron 72 ug/dL (49-181)
[2022-05-29 11:14] VITALS: BP 126/60; PULSE 66; RESP 18; TEMP 36.7; O2SAT 100
[2022-05-29 11:15] LABS: Total Iron Binding Capacity 276 ug/dL (261-462)
[2022-05-29 11:44] LABS: Ferritin 97.6 ng/ml (17.9-464)
== END 2022-05-29 11:14 | disposition home or self-care (01) ==
LOC: INF 10:19
PROVIDERS: PCP Internal Medicine Adolescent Medicine; Visit Provider Internal Medicine Nephrology
DX: N18.30 Chronic kidney disease, stage 3 unspecified (principal); D63.1 Anemia in chronic kidney disease
CPT/HCPCS: 82565; 82728; 83540; 83550; 84132; 85014; 85018; 96372; J0885

== ENCOUNTER 2022-06-11 12:38 | Outpatient (CLI) | payer MEDICARE, SELFPAY ==
[2022-06-11 12:43] VITALS: BMI 20.1
--- NOTE | 2022-06-11 12:45 | PC.NURSE ---
1245-collected labs via peripheral stick;will wait on results if hgb < 11 pt to get procrit injection
[2022-06-11 12:57] LABS: Hematocrit 31.8 % (42.0-52.0); Hemoglobin 10.4 g/dL (14.1-18.0)
[2022-06-11 13:06] LABS: Potassium 3.9 mmoL/L (3.5-5.1)
[2022-06-11 13:09] LABS: Creatinine Clearance Estimated 42 mL/min (50-200); Estimated Glomerular Filt Rate 37 ml/min (>60); GFR (African American) 45 ML/MIN (>60)
[2022-06-11 13:19] VITALS: BP 158/66; PULSE 67; RESP 18; O2SAT 98
== END 2022-06-11 13:19 | disposition home or self-care (01) ==
LOC: INF 12:40
PROVIDERS: PCP Internal Medicine Adolescent Medicine; Visit Provider Internal Medicine Nephrology
DX: N18.30 Chronic kidney disease, stage 3 unspecified (principal); D63.1 Anemia in chronic kidney disease
CPT/HCPCS: 82565; 84132; 85014; 85018; 96372; J0885

== ENCOUNTER 2022-06-27 10:31 | Outpatient (CLI) | payer MEDICARE, SELFPAY ==
[2022-06-27 10:37] VITALS: BMI 20.1
[2022-06-27 11:00] LABS: Hematocrit 33.9 % (42.0-52.0); Hemoglobin 10.9 g/dL (14.1-18.0)
--- NOTE | 2022-06-27 11:10 | PC.NURSE ---
1040-collected labs via peripheral stick;if hgb <11 pt needs procrit injection
[2022-06-27 11:14] VITALS: BP 114/61; PULSE 74; RESP 18; TEMP 36.7; O2SAT 97
[2022-06-27 11:16] LABS: Potassium 3.9 mmoL/L (3.5-5.1)
[2022-06-27 11:19] LABS: Creatinine Clearance Estimated 47 mL/min (50-200); Estimated Glomerular Filt Rate 43 ml/min (>60); GFR (African American) 52 ML/MIN (>60); Iron 39 ug/dL (49-181)
[2022-06-27 11:28] LABS: Total Iron Binding Capacity 250 ug/dL (261-462)
[2022-06-27 11:57] LABS: Ferritin 148 ng/ml (17.9-464)
== END 2022-06-27 11:14 | disposition home or self-care (01) ==
LOC: INF 10:32
PROVIDERS: PCP Internal Medicine Adolescent Medicine; Visit Provider Internal Medicine Nephrology
DX: N18.30 Chronic kidney disease, stage 3 unspecified (principal); D63.1 Anemia in chronic kidney disease
CPT/HCPCS: 82565; 82728; 83540; 83550; 84132; 85014; 85018; 96372; J0885

== ENCOUNTER 2022-07-11 09:33 | Outpatient (CLI) | payer MEDICARE, SELFPAY ==
[2022-07-11 09:39] VITALS: BMI 20.1
[2022-07-11 10:03] LABS: Hematocrit 28.3 % (42.0-52.0); Hemoglobin 9.2 g/dL (14.1-18.0)
[2022-07-11 10:11] VITALS: BP 135/72; PULSE 68; RESP 18; TEMP 36.4; O2SAT 99
[2022-07-11 10:11] LABS: Creatinine Clearance Estimated 44 mL/min (50-200); Estimated Glomerular Filt Rate 40 ml/min (>60); GFR (African American) 48 ML/MIN (>60); Potassium 3.9 mmoL/L (3.5-5.1)
[2022-07-11 10:21] VITALS: BP 138/71; PULSE 76; RESP 18; TEMP 36.4; O2SAT 99
== END 2022-07-11 10:21 | disposition home or self-care (01) ==
LOC: INF 09:33
PROVIDERS: PCP Internal Medicine Adolescent Medicine; Visit Provider Internal Medicine Nephrology
DX: N18.30 Chronic kidney disease, stage 3 unspecified (principal); D63.1 Anemia in chronic kidney disease
CPT/HCPCS: 82565; 84132; 85014; 85018; 96372; J0885

== ENCOUNTER 2022-07-31 08:36 | Outpatient (CLI) | payer MEDICARE, SELFPAY ==
[2022-07-31 08:42] VITALS: BMI 20.1
--- NOTE | 2022-07-31 08:48 | PC.NURSE ---
0848-collected labs via peripheral stick will wait on results
[2022-07-31 09:05] LABS: Potassium 3.8 mmoL/L (3.5-5.1)
[2022-07-31 09:08] LABS: Creatinine Clearance Estimated 49 mL/min (50-200); Estimated Glomerular Filt Rate 46 ml/min (>60); GFR (African American) 56 ML/MIN (>60); Iron 44 ug/dL (49-181)
[2022-07-31 09:15] LABS: Hematocrit 30.6 % (42.0-52.0)
[2022-07-31 09:17] LABS: Total Iron Binding Capacity 266 ug/dL (261-462)
[2022-07-31 09:42] VITALS: BP 137/62; PULSE 81; RESP 18; O2SAT 98
[2022-07-31 09:45] LABS: Ferritin 81.5 ng/ml (17.9-464)
== END 2022-07-31 09:42 | disposition home or self-care (01) ==
LOC: INF 08:37
PROVIDERS: PCP Internal Medicine Adolescent Medicine; Visit Provider Internal Medicine Nephrology
DX: N18.4 Chronic kidney disease, stage 4 (severe) (principal); D63.1 Anemia in chronic kidney disease
CPT/HCPCS: 82565; 82728; 83540; 83550; 84132; 85014; 85018; 96372; J0885

== ENCOUNTER 2022-08-21 09:02 | Outpatient (CLI) | payer MEDICARE, SELFPAY ==
[2022-08-21 09:08] VITALS: BMI 20.1
[2022-08-21 09:26] LABS: Hematocrit 29.2 % (42.0-52.0); Hemoglobin 9.7 g/dL (14.1-18.0)
[2022-08-21 09:29] LABS: Potassium 4.1 mmoL/L (3.5-5.1)
[2022-08-21 09:32] LABS: Creatinine Clearance Estimated 46 mL/min (50-200); Estimated Glomerular Filt Rate 43 ml/min (>60); GFR (African American) 52 ML/MIN (>60)
[2022-08-21 09:50] VITALS: BP 148/75; PULSE 72; RESP 18; O2SAT 100
== END 2022-08-21 09:50 | disposition home or self-care (01) ==
LOC: INF 09:04
PROVIDERS: PCP Internal Medicine Adolescent Medicine; Visit Provider Internal Medicine Nephrology
DX: N18.30 Chronic kidney disease, stage 3 unspecified (principal); D63.1 Anemia in chronic kidney disease
CPT/HCPCS: 36415; 82565; 84132; 85014; 85018; 96372; J0885

== ENCOUNTER 2022-09-04 10:29 | Outpatient (CLI) | payer MEDICARE, SELFPAY ==
[2022-09-04 10:41] VITALS: BMI 20.1
--- NOTE | 2022-09-04 10:46 | PC.NURSE ---
1046-collected labs via peripheral stick will wait on results
[2022-09-04 11:06] LABS: Creatinine Clearance Estimated 46 mL/min (50-200); Estimated Glomerular Filt Rate 43 ml/min (>60); GFR (African American) 52 ML/MIN (>60); Hematocrit 31.2 % (42.0-52.0); Hemoglobin 9.9 g/dL (14.1-18.0)
[2022-09-04 11:25] VITALS: BP 120/62; PULSE 62; RESP 18; O2SAT 99
[2022-09-04 11:26] LABS: Iron 49 ug/dL (49-181)
[2022-09-04 11:35] LABS: Total Iron Binding Capacity 307 ug/dL (261-462)
[2022-09-04 12:04] LABS: Ferritin 65.5 ng/ml (17.9-464)
== END 2022-09-04 11:25 | disposition home or self-care (01) ==
PROVIDERS: PCP Internal Medicine Adolescent Medicine; Visit Provider Internal Medicine Nephrology
DX: N18.30 Chronic kidney disease, stage 3 unspecified (principal); D63.1 Anemia in chronic kidney disease
CPT/HCPCS: 36415; 82565; 82728; 83540; 83550; 84132; 85014; 85018; 96372; J0885

== ENCOUNTER 2022-09-19 08:34 | Outpatient (CLI) | payer MEDICARE, SELFPAY ==
[2022-09-19 08:39] VITALS: BMI 20.1
[2022-09-19 08:50] LABS: Hematocrit 30.3 % (42.0-52.0); Hemoglobin 9.6 g/dL (14.1-18.0)
[2022-09-19 08:55] LABS: Potassium 3.9 mmoL/L (3.5-5.1)
[2022-09-19 08:58] LABS: Creatinine Clearance Estimated 41 mL/min (50-200); Estimated Glomerular Filt Rate 37 ml/min (>60); GFR (African American) 45 ML/MIN (>60)
[2022-09-19 09:15] VITALS: BP 165/83; PULSE 63; RESP 18; O2SAT 98
== END 2022-09-19 09:15 | disposition home or self-care (01) ==
LOC: INF 08:35
PROVIDERS: PCP Internal Medicine Adolescent Medicine; Visit Provider Internal Medicine Nephrology
DX: D63.1 Anemia in chronic kidney disease (principal); N18.30 Chronic kidney disease, stage 3 unspecified
CPT/HCPCS: 36415; 82565; 84132; 85014; 85018; 96372; J0885

== ENCOUNTER 2022-10-03 09:38 | Outpatient (CLI) | payer MEDICARE, SELFPAY ==
[2022-10-03 09:43] VITALS: BMI 20.1
--- NOTE | 2022-10-03 09:48 | PC.NURSE ---
0948-collected labs via peripheral stick;will wait for results
[2022-10-03 09:58] LABS: Hematocrit 30.2 % (42.0-52.0); Hemoglobin 9.7 g/dL (14.1-18.0)
[2022-10-03 10:14] VITALS: BP 136/68; PULSE 61; RESP 18; O2SAT 98
[2022-10-03 10:25] LABS: Creatinine Clearance Estimated 49 mL/min (50-200); Estimated Glomerular Filt Rate 46 ml/min (>60); GFR (African American) 56 ML/MIN (>60); Iron 43 ug/dL (49-181)
[2022-10-03 10:34] LABS: Total Iron Binding Capacity 301 ug/dL (261-462)
[2022-10-03 11:02] LABS: Ferritin 71.1 ng/ml (17.9-464)
== END 2022-10-03 10:14 | disposition home or self-care (01) ==
LOC: INF 09:38
PROVIDERS: PCP Internal Medicine Adolescent Medicine; Visit Provider Internal Medicine Nephrology
DX: N18.30 Chronic kidney disease, stage 3 unspecified (principal); D63.1 Anemia in chronic kidney disease
CPT/HCPCS: 36415; 82565; 82728; 83540; 83550; 84132; 85014; 85018; 96372; J0885

== ENCOUNTER 2022-10-17 10:08 | Outpatient (CLI) | payer MEDICARE, SELFPAY ==
[2022-10-17 10:15] VITALS: BMI 20.1
[2022-10-17 10:32] LABS: Hematocrit 31.2 % (42.0-52.0); Hemoglobin 9.8 g/dL (14.1-18.0)
[2022-10-17 10:40] LABS: Potassium 4.4 mmoL/L (3.5-5.1)
[2022-10-17 10:43] LABS: Creatinine Clearance Estimated 46 mL/min (50-200); Estimated Glomerular Filt Rate 43 ml/min (>60); GFR (African American) 52 ML/MIN (>60)
[2022-10-17 10:45] VITALS: BP 139/82; PULSE 73; RESP 18; O2SAT 97
== END 2022-10-17 10:45 | disposition home or self-care (01) ==
LOC: INF 10:09
PROVIDERS: PCP Internal Medicine Adolescent Medicine; Visit Provider Internal Medicine Nephrology
DX: N18.30 Chronic kidney disease, stage 3 unspecified (principal); D63.1 Anemia in chronic kidney disease
CPT/HCPCS: 36415; 82565; 84132; 85014; 85018; 96372; J0885

== ENCOUNTER 2022-10-30 11:14 | Outpatient (CLI) | payer MEDICARE, SELFPAY ==
[2022-10-30 11:21] VITALS: BMI 20.1
[2022-10-30 11:39] LABS: Hematocrit 30.2 % (42.0-52.0); Hemoglobin 9.4 g/dL (14.1-18.0)
[2022-10-30 11:45] LABS: Creatinine Clearance Estimated 49 mL/min (50-200); Estimated Glomerular Filt Rate 46 ml/min (>60); GFR (African American) 56 ML/MIN (>60); Iron 40 ug/dL (49-181)
[2022-10-30 11:56] LABS: Total Iron Binding Capacity 305 ug/dL (261-462)
[2022-10-30 12:00] VITALS: BP 131/67; PULSE 69; RESP 18; O2SAT 96
[2022-10-30 12:23] LABS: Ferritin 41.4 ng/ml (17.9-464)
== END 2022-10-30 12:00 | disposition home or self-care (01) ==
LOC: INF 11:14
PROVIDERS: PCP Internal Medicine Adolescent Medicine; Visit Provider Internal Medicine Nephrology
DX: N18.30 Chronic kidney disease, stage 3 unspecified (principal); D63.1 Anemia in chronic kidney disease
CPT/HCPCS: 36415; 82565; 82728; 83540; 83550; 84132; 85014; 85018; 96372; J0885

== ENCOUNTER → 2022-11-07 09:35 | Outpatient (CLI) | payer MEDICARE, SELFPAY ==
[2022-11-07 09:42] LABS: Microscopic, Urine URINE MICROSCOPIC (MICROSCOPIC)
[2022-11-07 10:17] LABS: Basophils % 0.2 % (0.1-2.0); Eosinophils # 0.1 K/mm3 (0.0-0.4); Eosinophils % 2.3 % (0.1-12.0); Hematocrit 28.5 % (42.0-52.0); Hemoglobin 9.5 g/dL (14.1-18.0); Lymphocytes # 0.9 K/mm3 (0.7-4.5); Lymphocytes % 14.4 % (10-50); Mean Corpuscular HGB Conc 33.2 g/dL (31.8-35.4); Mean Corpuscular Hemoglobin 30.4 pg (27.0-31.2); Mean Corpuscular Volume 91.6 fl (80-94); Mean Platelet Volume 8.6 fl (7.4-10.4); Monocytes # 0.5 K/mm3 (0.1-1.0); Monocytes % 8.1 % (1.7-9.3); Neutrophils # 4.4 K/mm3 (1.8-7.8); Platelet Count 229 K/mm3 (142-424); Red Blood Count 3.11 M/mm3 (4.60-6.20); White Blood Count 5.9 K/mm3 (4.8-10.8)
[2022-11-07 10:23] LABS: Appearance,Urine CLEAR (Clear); Bilirubin,Urine Negative (Negative); Blood, Urine Negative (Negative); Color,Urine YELLOW (Yellow); Glucose,Urine (UA) Negative (Negative); Ketones,Urine Negative (Negative); Leukocyte Esterase,Urine Negative (Negative); Nitrate,Urine Negative (Negative); Protein,Urine 1+ (Negative); Specific Gravity, Urine 1.015 (1.005-1.030); Urobilinogen,Urine 0.2 EU/dl (0.2)
[2022-11-07 10:37] LABS: Bacteria,Urine Trace /lpf; Squamous Epithelial Cell,Urine Occasional #/hpf (0-5); WBC,Urine Occasional #/hpf (0-3)
[2022-11-07 10:42] LABS: Creatinine,Urine Random 75 mg/dL (Not Estab.)
[2022-11-07 11:27] LABS: Albumin Level 3.5 g/dl (3.5-5.0); Chloride 100 mmol/L (98-107); Sodium 135 mmol/L (136-145)
[2022-11-07 11:29] LABS: Blood Urea Nitrogen 25 mg/dl (9-20); Estimated Glomerular Filt Rate 43 ml/min (>60); GFR (African American) 52 ML/MIN (>60); Iron 44 ug/dL (49-181)
[2022-11-07 11:30] LABS: Calcium 8.5 mg/dl (8.4-10.2); Carbon Dioxide 25 mmol/L (22.0-30.0); Glucose 184 mg/dl (74-100); Phosphorous 4.1 mg/dl (2.5-4.5)
[2022-11-07 11:40] LABS: Total Iron Binding Capacity 287 ug/dL (261-462)
[2022-11-07 12:05] LABS: Ferritin 36.7 ng/ml (17.9-464)
== END ==
PROVIDERS: PCP Internal Medicine Adolescent Medicine; Visit Provider Student in an Organized Health Care Education/Training Program
DX: E61.1 Iron deficiency (principal); N18.31 Chronic kidney disease, stage 3a
CPT/HCPCS: 36415; 80069; 81001; 82570; 82728; 83540; 83550; 84155; 85025

== ENCOUNTER 2022-11-13 11:14 | Outpatient (CLI) | payer MEDICARE, SELFPAY ==
[2022-11-13 11:18] VITALS: BMI 20.1
[2022-11-13 11:32] LABS: Hematocrit 28.6 % (42.0-52.0); Hemoglobin 9.1 g/dL (14.1-18.0)
[2022-11-13 11:42] LABS: Potassium 3.8 mmoL/L (3.5-5.1)
[2022-11-13 11:45] LABS: Creatinine Clearance Estimated 46 mL/min (50-200); Estimated Glomerular Filt Rate 43 ml/min (>60); GFR (African American) 52 ML/MIN (>60)
[2022-11-13 12:00] VITALS: BP 148/76; PULSE 65; RESP 18; O2SAT 95
== END 2022-11-13 12:00 | disposition home or self-care (01) ==
LOC: INF 11:15
PROVIDERS: PCP Internal Medicine Adolescent Medicine; Visit Provider Internal Medicine Nephrology
DX: N18.30 Chronic kidney disease, stage 3 unspecified (principal); D63.1 Anemia in chronic kidney disease
CPT/HCPCS: 36415; 82565; 84132; 85014; 85018; 96372; J0885

== ENCOUNTER 2022-11-26 09:04 | Outpatient (CLI) | payer MEDICARE, SELFPAY ==
[2022-11-26 09:14] VITALS: BMI 20.4
[2022-11-26 09:30] LABS: Hematocrit 29.7 % (42.0-52.0); Hemoglobin 9.6 g/dL (14.1-18.0)
[2022-11-26 09:45] LABS: Creatinine Clearance Estimated 42 mL/min (50-200); Estimated Glomerular Filt Rate 37 ml/min (>60); GFR (African American) 45 ML/MIN (>60); Potassium 3.7 mmoL/L (3.5-5.1)
[2022-11-26 09:50] VITALS: BP 164/69; PULSE 64; RESP 18; TEMP 36.6; O2SAT 99
[2022-11-26 10:20] VITALS: BP 151/80; PULSE 67; RESP 18; TEMP 36.6; O2SAT 99
== END 2022-11-26 10:20 | disposition home or self-care (01) ==
LOC: INF 09:05
PROVIDERS: PCP Internal Medicine Adolescent Medicine; Visit Provider Internal Medicine Nephrology
DX: N18.30 Chronic kidney disease, stage 3 unspecified (principal); D63.1 Anemia in chronic kidney disease
CPT/HCPCS: 82565; 84132; 85014; 85018; 96372; 96374; 96375; J0885; Q0138

== ENCOUNTER 2022-11-30 10:12 | Outpatient (CLI) | payer MEDICARE, SELFPAY ==
[2022-11-30 10:38] VITALS: BP 114/58; PULSE 71; RESP 18; O2SAT 99
[2022-11-30 11:00] VITALS: BP 137/76; PULSE 72; RESP 18; O2SAT 97
== END 2022-11-30 11:00 | disposition home or self-care (01) ==
LOC: INF 10:13
PROVIDERS: PCP Internal Medicine Adolescent Medicine; Visit Provider Hospitalist
DX: D50.9 Iron deficiency anemia, unspecified (principal); N18.30 Chronic kidney disease, stage 3 unspecified
CPT/HCPCS: 96374; Q0138

== ENCOUNTER 2022-12-12 10:39 | Outpatient (CLI) | payer MEDICARE, SELFPAY ==
[2022-12-12 10:45] VITALS: BMI 20.4
--- NOTE | 2022-12-12 10:50 | PC.NURSE ---
1050-collected labs via peripheral stick in right ac; will wait on labs.
[2022-12-12 11:04] LABS: Hematocrit 33.6 % (42.0-52.0); Hemoglobin 10.5 g/dL (14.1-18.0)
[2022-12-12 11:10] LABS: Potassium 3.9 mmoL/L (3.5-5.1)
[2022-12-12 11:12] LABS: Creatinine Clearance Estimated 39 mL/min (50-200); Estimated Glomerular Filt Rate 35 ml/min (>60); GFR (African American) 42 ML/MIN (>60); Iron 61 ug/dL (49-181)
[2022-12-12 11:22] LABS: Total Iron Binding Capacity 229 ug/dL (261-462)
[2022-12-12 11:49] VITALS: BP 108/51; PULSE 57; RESP 18; TEMP 36.6; O2SAT 98
[2022-12-12 11:50] LABS: Ferritin 210 ng/ml (17.9-464)
== END 2022-12-12 11:49 | disposition home or self-care (01) ==
LOC: INF 10:40
PROVIDERS: PCP Internal Medicine Adolescent Medicine; Visit Provider Internal Medicine Nephrology
DX: N18.30 Chronic kidney disease, stage 3 unspecified (principal); D63.1 Anemia in chronic kidney disease
CPT/HCPCS: 36415; 82565; 82728; 83540; 83550; 84132; 85014; 85018; 96372; J0885

== ENCOUNTER 2022-12-25 09:37 | Outpatient (CLI) | payer MEDICARE, SELFPAY ==
[2022-12-25 09:43] VITALS: BMI 20.1
--- NOTE | 2022-12-25 09:49 | PC.NURSE ---
0949-collected labs via peripheral stick with butterfly needle in left ac;pt to wait on labs may need procrit injection if hgb <11.
[2022-12-25 09:58] LABS: Hematocrit 36.4 % (42.0-52.0); Hemoglobin 11.2 g/dL (14.1-18.0)
[2022-12-25 10:05] LABS: Potassium 4.2 mmoL/L (3.5-5.1)
[2022-12-25 10:08] LABS: Creatinine Clearance Estimated 41 mL/min (50-200); Estimated Glomerular Filt Rate 37 ml/min (>60); GFR (African American) 45 ML/MIN (>60)
--- NOTE | 2022-12-25 10:10 | PC.NURSE ---
1010-pt d/c home; no procrit injection toay, hgb 11.2; pt to return in one month.
== END 2022-12-25 10:10 | disposition home or self-care (01) ==
LOC: INF 09:38
PROVIDERS: PCP Internal Medicine Adolescent Medicine; Visit Provider Internal Medicine Nephrology
DX: D50.9 Iron deficiency anemia, unspecified (principal); N18.30 Chronic kidney disease, stage 3 unspecified
CPT/HCPCS: 36415; 82565; 84132; 85014; 85018

== ENCOUNTER → 2023-01-19 10:00 | Outpatient (CLI) | payer MEDICARE, SELFPAY ==
[2023-01-19 10:06] LABS: Microscopic, Urine URINE MICROSCOPIC (MICROSCOPIC)
[2023-01-19 10:28] LABS: Basophils % 0.4 % (0.1-2.0); Eosinophils # 0.3 K/mm3 (0.0-0.4); Eosinophils % 3.4 % (0.1-12.0); Hematocrit 35.3 % (42.0-52.0); Hemoglobin 11.3 g/dL (14.1-18.0); Lymphocytes # 0.7 K/mm3 (0.7-4.5); Lymphocytes % 9.8 % (10-50); Mean Corpuscular Hemoglobin 28.8 pg (27.0-31.2); Mean Corpuscular Volume 90.3 fl (80-94); Mean Platelet Volume 8.2 fl (7.4-10.4); Monocytes # 0.4 K/mm3 (0.1-1.0); Monocytes % 5.7 % (1.7-9.3); Neutrophils # 6.1 K/mm3 (1.8-7.8); Neutrophils % 80.8 % (37.0-80.0); Platelet Count 168 K/mm3 (142-424); Red Blood Count 3.91 M/mm3 (4.60-6.20); Red Cell Distribution Width 16.5 % (11.5-17.5); White Blood Count 7.5 K/mm3 (4.8-10.8)
[2023-01-19 10:53] LABS: Anion Gap 12.1 mEq/L (5-15); Blood Urea Nitrogen 28 mg/dl (9-20); Calcium 9.1 mg/dl (8.4-10.2); Carbon Dioxide 28 mmol/L (22.0-30.0); Chloride 103 mmol/L (98-107); Estimated Glomerular Filt Rate 40 ml/min (>60); GFR (African American) 48 ML/MIN (>60); Glucose 151 mg/dl (74-100); Phosphorous 4.2 mg/dl (2.5-4.5); Potassium 4.1 mmoL/L (3.5-5.1); Sodium 139 mmol/L (136-145)
[2023-01-19 10:59] LABS: Appearance,Urine CLEAR (Clear); Bilirubin,Urine Negative (Negative); Blood, Urine Negative (Negative); Color,Urine YELLOW (Yellow); Glucose,Urine (UA) 3+ (Negative); Ketones,Urine Negative (Negative); Leukocyte Esterase,Urine Negative (Negative); Nitrate,Urine Negative (Negative); Protein,Urine 1+ (Negative); Urobilinogen,Urine 0.2 EU/dl (0.2)
[2023-01-19 11:04] LABS: Squamous Epithelial Cell,Urine Occasional #/hpf (0-5)
[2023-01-19 11:05] LABS: Intact Parathyroid Hormone 63.3 pg/mL (7.5-53.5)
[2023-01-19 11:10] LABS: 25-OH Vitamin D, Total 71.2 ng/mL (30-100)
[2023-01-19 13:49] LABS: Creatinine,Urine Random 38 mg/dL (Not Estab.); Microalbumin/Creatinine Ratio 371.3
== END ==
PROVIDERS: PCP Internal Medicine Adolescent Medicine; Visit Provider Internal Medicine Nephrology
DX: N18.32 Chronic kidney disease, stage 3b (principal); E55.9 Vitamin D deficiency, unspecified
CPT/HCPCS: 36415; 80069; 81001; 82043; 82306; 82570; 83970; 84155; 85025

== ENCOUNTER 2023-01-22 08:48 | Outpatient (CLI) | payer MEDICARE, SELFPAY ==
[2023-01-22 08:55] VITALS: BMI 20.1
--- NOTE | 2023-01-22 09:00 | PC.NURSE ---
0900-collected labs via venipuncture stick in left ac;pt will wait on labs.
[2023-01-22 09:09] LABS: Hematocrit 35.7 % (42.0-52.0); Hemoglobin 11.3 g/dL (14.1-18.0)
[2023-01-22 09:13] LABS: Potassium 3.8 mmoL/L (3.5-5.1)
[2023-01-22 09:16] LABS: Creatinine Clearance Estimated 39 mL/min (50-200); Estimated Glomerular Filt Rate 35 ml/min (>60); GFR (African American) 42 ML/MIN (>60); Iron 64 ug/dL (49-181)
[2023-01-22 09:25] LABS: Total Iron Binding Capacity 281 ug/dL (261-462)
--- NOTE | 2023-01-22 09:48 | PC.NURSE ---
0948-pt d/c home ;pt did not need procrit injection today hgb 11.3.
[2023-01-22 09:54] LABS: Ferritin 135 ng/ml (17.9-464)
== END 2023-01-22 09:48 | disposition home or self-care (01) ==
LOC: INF 08:48
PROVIDERS: PCP Internal Medicine Adolescent Medicine; Visit Provider Internal Medicine Nephrology
DX: N18.30 Chronic kidney disease, stage 3 unspecified (principal); D63.1 Anemia in chronic kidney disease
CPT/HCPCS: 36415; 82565; 82728; 83540; 83550; 84132; 85014; 85018

== ENCOUNTER → 2023-01-25 15:08 | Outpatient (POV) | payer MEDICARE, SELFPAY | PROVIDERS: Visit Provider Internal Medicine Nephrology | DX: Z00.00 Encounter for general adult medical examination without abnormal findings (principal) ==

== ENCOUNTER 2023-02-19 09:17 | Outpatient (CLI) | payer MEDICARE, SELFPAY ==
[2023-02-19 09:21] VITALS: BMI 20.1
--- NOTE | 2023-02-19 09:26 | PC.NURSE ---
0926-collected labs via venipuncture stick in left ac with butterfly needle;will wait for results for possible procrit if hgb <11
[2023-02-19 09:39] LABS: Hematocrit 36.1 % (42.0-52.0); Hemoglobin 11.7 g/dL (14.1-18.0)
--- NOTE | 2023-02-19 10:03 | PC.NURSE ---
1003-pt d/c home;hgb 11.7
[2023-02-19 10:15] LABS: Creatinine Clearance Estimated 39 mL/min (50-200); Estimated Glomerular Filt Rate 35 ml/min (>60); GFR (African American) 42 ML/MIN (>60); Iron 59 ug/dL (49-181); Potassium 4.2 mmoL/L (3.5-5.1)
[2023-02-19 10:24] LABS: Total Iron Binding Capacity 272 ug/dL (261-462)
[2023-02-19 10:50] LABS: Ferritin 121 ng/ml (17.9-464)
== END 2023-02-19 10:03 | disposition home or self-care (01) ==
LOC: INF 09:18
PROVIDERS: PCP Internal Medicine Adolescent Medicine; Visit Provider Internal Medicine Nephrology
DX: D63.1 Anemia in chronic kidney disease (principal); N18.30 Chronic kidney disease, stage 3 unspecified; Z79.899 Other long term (current) drug therapy; I12.9 Hypertensive chronic kidney disease with stage 1 through stage 4 chronic kidney disease, or unspecified chronic kidney disease
CPT/HCPCS: 36415; 82565; 82728; 83540; 83550; 84132; 85014; 85018

== ENCOUNTER 2023-03-19 09:07 | Outpatient (CLI) | payer MEDICARE, SELFPAY ==
[2023-03-19 09:13] VITALS: BMI 20.1
--- NOTE | 2023-03-19 09:20 | PC.NURSE ---
0920-collected labs via venipuncture stick in right ac;pt to wait on labs, if hgb >11 no procrit injection
[2023-03-19 09:32] LABS: Hematocrit 34.9 % (42.0-52.0); Hemoglobin 11.5 g/dL (14.1-18.0)
[2023-03-19 09:37] LABS: Potassium 4.2 mmoL/L (3.5-5.1)
[2023-03-19 09:39] LABS: Creatinine Clearance Estimated 37 mL/min (50-200); Estimated Glomerular Filt Rate 33 ml/min (>60); GFR (African American) 40 ML/MIN (>60)
[2023-03-19 09:40] LABS: Iron 88 ug/dL (49-181)
[2023-03-19 09:49] LABS: Total Iron Binding Capacity 240 ug/dL (261-462)
[2023-03-19 09:52] LABS: Hemoglobin A1C 6.3 % (4.0-6.0)
[2023-03-19 10:17] LABS: Ferritin 110 ng/ml (17.9-464)
== END 2023-03-19 09:50 | disposition home or self-care (01) ==
LOC: INF 09:08
PROVIDERS: PCP Internal Medicine Adolescent Medicine; Visit Provider Internal Medicine Nephrology
DX: D63.1 Anemia in chronic kidney disease (principal); E11.40 Type 2 diabetes mellitus with diabetic neuropathy, unspecified; N18.30 Chronic kidney disease, stage 3 unspecified; Z79.84 Long term (current) use of oral hypoglycemic drugs; Z79.899 Other long term (current) drug therapy
CPT/HCPCS: 36415; 82565; 82728; 83036; 83540; 83550; 84132; 85014; 85018